=== PATIENT | male | born 1990 | race Caucasian/White ===

== ENCOUNTER 2023-01-05 11:14 | Emergency (ER) | payer OTHER, SELFPAY ==
[2023-01-05] VITALS (7 sets, daily range): BP systolic 128–158; BP diastolic 71–77; PULSE 112–133; RESP 18–22; TEMP 37.4–37.7; O2SAT 92–96; BMI 25.1
--- NOTE | ~2023-01-05 | CT_ITS ---
EXAMINATION: CT ANGIOGRAM OF THE CHEST WITH AND WITHOUT CONTRAST (CT PULMONARY ANGIOGRAM FOR PE) CLINICAL INFORMATION: Reason for Exam: tachycardia shortness of breath RO PE COMPARISON: Chest x-ray 01/05/2023. TECHNIQUE: Prior to contrast administration, noncontrast localization images were obtained. Subsequently, multidetector volumetric imaging was performed from the thoracic inlet to below the diaphragms following the administration of 80 mL Omnipaque 350 intravenous contrast. No contrast reaction reported Sagittal, coronal, and MIP oblique sagittal reformatted images were obtained on the CT workstation, uploaded to PACS, and reviewed. This CT examination was performed using dose optimization techniques as appropriate, variously including the following: *Automated exposure control *Adjustment of mA and/or kV according to patient size (this includes techniques or standardized protocols for targeted exams where dose is matched to indication/reason for exam; i.e. extremities or head) *Use of iterative reconstruction technique Total exam dose-length product 265 mGy-cm FINDINGS: QUALITY OF STUDY/CONTRAST BOLUS: Satisfactory. PULMONARY ARTERIES: No pulmonary emboli. THORACIC AORTA: No aneurysm. LUNG: There is ill-defined ground-glass attenuation seen in the right upper lobe posterior segment image 18/8, 26/8, right middle lobe 31/8, left lower lobe centrally imaged 37/8 and focal atelectatic changes in the anterior segment left upper lobe axial image 24/8. PLEURA: No pleural effusion or pneumothorax. MEDIASTINUM: The thyroid lobes are symmetrical and normal. The central trachea and the bronchi are widely patent. Heart size and the great vessels are normal caliber. There is abnormal left para-aortic and bilateral hilar lymph nodes with largest right hilar lymph node measuring 1.7 cm on axial image 24/7. The largest left para-aortic lymph node measures 2.2 x 1.1 cm on axial image 19/7. There is no pericardial effusion. No evidence of septal bowing or right heart strain. CORONARY ARTERY CALCIFICATION: None visualized on this study. CHEST WALL/AXILLA: No axillary or internal mammary lymphadenopathy. OSSEOUS STRUCTURES: No acute or suspicious osseous abnormality. UPPER ABDOMEN: Visualized liver, spleen, pancreas and bilateral adrenal glands are unremarkable. No reflux of contrast into the hepatic veins to suggest elevated right heart pressures. CT/CT angio chest PE protocol IMPRESSION: 1. No evidence of PE. 2. No evidence of aortic aneurysm or dissection. 3. Scattered ground-glass attenuation changes in both lungs with bilateral abnormal mediastinal adenopathy. Question developing inflammatory or infectious etiology. VTE: Negative
--- NOTE | ~2023-01-05 | XR_ITS ---
EXAMINATION: XR CHEST CLINICAL INFORMATION: Wheezing. Chest pain and back pain. COMPARISON: None available. TECHNIQUE: 2 views of the chest were obtained. FINDINGS: The lungs are well expanded. There is no focal consolidation, edema, or effusion. No pneumothorax. The cardiomediastinal silhouette is within normal limits. No acute osseous abnormality. XR/XR chest 2V IMPRESSION: Clear lungs.
--- NOTE | 2023-01-05 11:33 | ED.URI ---
HPI - URI/Sore Throat General Chief Complaint: Upper Respiratory Symptoms Stated Complaint: diff breathing quest pneumonia Time Seen by Provider: 01/05/23 13:09 History of Present Illness HPI Narrative: Patient complains of shortness of breath, cough, diarrhea, fever over last 2-3 days, he has been using his inhaler at home with only minimal relief and feels chest tightness at this time, he denies any other chest pain, denies any leg injury or leg swelling or calf pain or swelling, he denies fainting or feeling faint no dizziness no confusion no headache no stiff neck no abdominal pain pain no chest pain no nausea vomiting Diarrhea is described as watery episodes with no blood after any time he eats about 3 or 4 times a day, he is tolerating p.o. without vomit Related Data Previous Rx's Medication Instructions Recorded albuterol sulfate 2.5 mg/0.5 mL 5 mg inhalation Q6H PRN shortness 01/05/23 solution for nebulization of breath or wheezing #30 ea albuterol sulfate 90 mcg/actuation 1 inh inhalation QID PRN shortness 01/05/23 aerosol inhaler of breath or wheezing #6.7 grams amoxicillin 875 mg-potassium 1 tab PO BID 7 days #12 tabs 01/05/23 clavulanate 125 mg tablet doxycycline hyclate 100 mg capsule 100 mg PO BID #14 caps 01/05/23 inhalational spacing device #1 ea 01/05/23 (Aerochamber Plus Z Stat spacer) nebulizers #1 ea 01/05/23 prednisone 50 mg tablet 50 mg PO DAILY 5 days #5 tabs 01/05/23 Allergies Allergy/AdvReac Type Severity Reaction Status Date / Time levofloxacin [From Levaquin] Allergy Anaphylaxis Verified 01/05/23 11:35 loratadine [From Claritin] Allergy Anaphylaxis Verified 01/05/23 11:35 [facility] Past Medical History Source: nursing notes reviewed Medical History (Updated 01/06/23 @ 00:01 by Nora Guidry) Asthma Social History Social History Advance Directives: No Physical Exam Vital Signs: Vital Signs: Last Vital Signs Temp 99.9 F 01/05/23 19:25 Pulse 133 H 01/05/23 20:09 Resp 22 H 01/05/23 20:09 BP 153/72 H 01/05/23 19:25 Pulse Ox 93 01/05/23 20:09 O2 Del Method Room Air 01/05/23 20:09 BMI result Body Mass Index 25.1 General appearance is no acute distress no respiratory distress Eyes no redness or discharge The sinuses are nontender Pharynx is clear without redness swelling or exudate The chest had faint scattered wheezing and decreased air entry Chest wall was nontender Heart no murmur Abdomen soft nontender Extremities no calf tenderness or swelling no edema, full range of motion x4 Skin no rash Course Course Course Narrative: This is a rapid medical exam. Deferred additional HPI, ROS, PE to primary provider. 32 yo male with history of asthma, H/o PNA 15 yrs ago with ICU admission here with 4 days of URI symptoms with chest tightness/pain in your upper back, diff breathing. Temp with max 102 F. Received tylenol [employer]. No recent travel/surgery, leg swelling/leg pain, h/o DVT/PE or family history. No smoking history. Went to and received nebulizer/tylenol. Expiratory wheezing right side. Mild tachycarda in triage 112 Saturation okay Patient responded with some improvement in his shortness of breath and his wheezing after nebulizer, he was given another which again brought some increased relief but he continues to feel short of breath any continued to be tachycardic with an oxygen saturation wavering between 92 and 95 EKG was done which showed sinus tachycardia with a rate of [address] depressions in multiple leads including 2 3 AVF V4 V5 V6, troponin was less than 2.7, his description of fever cough shortness of breath typical of asthma and wheezing is not consistent with a heart attack His D-dimer came back elevated at 292 so a CTA was ordered which is pending Chest x-ray was negative for pneumonia, no acute findings, but there is concern for a pneumonia not seen on x-ray No acute findings on CBC no white count, platelets were 182 Chemistry had a glucose of 160 otherwise no other abnormalities, renal function was normal COVID flu and RSV were all negative At 19:00 with CTA results pending and dispo and re-evaluation pending case is signed out to physician assistant martínez Reevaluation(s) Reevaluation #1: Patient was signed out to me, pending chest CTA. CTA revealing scattered ground-glass attenuation changes in both lungs with bilateral abnormal mediastinal adenopathy. Question developing inflammatory or infectious etiology. I had ordered a complete viral panel however this will not be resulted until the morning. Given past history of pneumonia which required hospital admission, it is appropriate to start on antibiotics at this time.. Educated the patient on continuing to drink plenty of fluids get plenty of rest. Given return precautions with any new or worsening symptoms. Patient understands agrees with this plan. Lungs clear to auscultation bilaterally. Oxygen saturation 96% air walking O2 sat 93-94%. Patient continues to be tachycardic in the 120s 130s however reports that he is feeling very anxious about being in hospital. He has no chest pain. Patient stable for discharge Time: 21:49 Medications Administered Discontinued Medications Generic Name Dose Route Start Last Admin Trade Name Freq PRN Reason Stop Dose Admin Albuterol/Ipratropium 3 ml 01/05/23 13:29 01/05/23 13:40 Albuterol/Iprat 2.5/0.5mg 3 Ml Ampul.Neb INHALE 01/05/23 13:30 3 ml ONCE ONE Administration Albuterol/Ipratropium 3 ml 01/05/23 14:59 01/05/23 15:36 Albuterol/Iprat 2.5/0.5mg 3 Ml Ampul.Neb INHALE 01/05/23 15:00 3 ml ONCE ONE Administration Amoxicillin/Clavulanate Potassium 875 mg 01/05/23 22:24 01/05/23 22:34 Amoxicillin/Potassium Clav 875 Mg Tablet PO 01/05/23 22:25 875 mg ONCE ONE Administration Doxycycline Monohydrate 100 mg 01/05/23 22:24 01/05/23 22:34 Doxycycline Monohydrate 100 Mg Capsule PO 01/05/23 22:25 100 mg ONCE ONE Administration Sodium Chloride 1,000 mls @ 999 mls/hr 01/05/23 16:30 01/05/23 19:12 Ns IVCONT 01/05/23 17:30 Infused .Q1H1M TESSA Infusion Iohexol 100 ml 01/05/23 18:27 01/05/23 18:28 Iohexol 350 Mg/Ml 100 Ml Infus..Btl IV 01/05/23 18:28 65 ml ONCE ONE Administration Lorazepam 1 mg 01/05/23 16:22 01/05/23 16:38 Lorazepam 2 Mg/Ml Vial IVPUSH 01/05/23 16:23 1 mg ONCE ONE Administration Lorazepam 1 mg 01/05/23 19:05 01/05/23 19:12 Lorazepam 1 Mg Tablet PO 01/05/23 19:06 1 mg ONCE ONE Administration Prednisone 60 mg 01/05/23 13:29 01/05/23 13:35 Prednisone 20 Mg Tablet PO 01/05/23 13:30 60 mg ONCE ONE Administration Medical Decision Making Lab Data 01/05/23 16:08 01/05/23 16:08 Labs: Lab Results 01/05/23 01/05/23 01/05/23 Range/Units 11:44 16:08 16:08 WBC (4.8-10.8) X10*3/uL RBC (4.60-5.80) X10*6/uL Hgb (14.0-18.0) g/dl Hct (42.0-52.0) % MCV (80.0-98.0) fL MCH (27.0-33.0) pg MCHC (31.0-36.0) g/dl RDW (11.0-16.0) % Plt Count (160-400) X10*3/uL MPV (9.4-12.4) fL Immature Gran % (Auto) (0.0-0.4) % Neut % (Auto) (45-73) % Lymph % (Auto) (20-40) % Lane % (Auto) (2-11) % Eos % (Auto) (0-4) % Baso % (Auto) (0-2) % Lymph # (Auto) (1.2-4.9) X10*3/uL Lane # (Auto) (0.1-1.2) X10*3/uL Eos # (Auto) (0.0-0.4) X10*3/uL Baso # (Auto) (0.0-0.2) X10*3/uL Abs Immat Gran (auto) (0.00-0.03) X10*3/uL Absolute Neuts (auto) (2.0-8.3) x10*3/uL Absolute Nucleated RBC (0.0-0.012) X10*3/uL Nucleated RBC % (auto) (0.0-0.2) /100WBC D-Dimer High Sensitivty 292 NG/ML Sodium (135-145) mmol/L Potassium (3.3-5.1) mmol/L Chloride (96-108) mmol/L Carbon Dioxide (22-29) mmol/L Anion Gap (12-20) BUN (9-16) mg/dL Creatinine (0.5-1.4) mg/dL Estim Creat Clear Calc Estimated GFR Random Glucose (60-115) mg/dL Calcium (8.4-10.2) mg/dL Troponin I High Sens < 2.7 (<3.5-35.0) ng/L Respiratory Panel Luis Adenovirus (Rapid PCR) (Not Detect.) B.pert (TEM-PCR) (Not Detect.) B.parapertussis DNA PCR (Not Detect.) C. pneumoniae DNA (PCR) (Not Detect.) Coronavirus OC43 (PCR) (Not Detect.) Coronavirus HKU1 (PCR) (Not Detect.) Coronavirus 229E (PCR) (Not Detect.) Coronavirus NL63 (PCR) (Not Detect.) Human Metapneumovir PCR (Not Detect.) Influenza A (RT-PCR) (Not Detect.) Influenza Type A (PCR) NEGATIVE (Negative) Influenza B (RT-PCR) (Not Detect.) Influenza Type B (PCR) NEGATIVE (Negative) M. pneumoniae (PCR) (Not Detect.) Parainfluenza 1 (PCR) (Not Detect.) Parainfluenza 2 (PCR) (Not Detect.) Parainfluenza 3 (PCR) (Not Detect.) Parainfluenza 4 (PCR) (Not Detect.) RSV (PCR) (Not Detect.) RSV RNA Qual (PCR) NEGATIVE (Negative) Entero/Rhino (PCR) (Not Detect.) SARS-CoV-2 RNA (RT-PCR) NEGATIVE (Negative) 01/05/23 01/05/23 01/05/23 Range/Units 16:08 16:08 20:09 WBC 8.7 (4.8-10.8) X10*3/uL RBC 5.31 (4.60-5.80) X10*6/uL Hgb 15.2 (14.0-18.0) g/dl Hct 44.3 (42.0-52.0) % MCV 83.4 (80.0-98.0) fL MCH 28.6 (27.0-33.0) pg MCHC 34.3 (31.0-36.0) g/dl RDW 12.3 (11.0-16.0) % Plt Count 182 (160-400) X10*3/uL MPV 8.6 L (9.4-12.4) fL Immature Gran % (Auto) 0.3 (0.0-0.4) % Neut % (Auto) 81.6 H (45-73) % Lymph % (Auto) 15.6 L (20-40) % Lane % (Auto) 2.2 (2-11) % Eos % (Auto) 0.1 (0-4) % Baso % (Auto) 0.2 (0-2) % Lymph # (Auto) 1.4 (1.2-4.9) X10*3/uL Lane # (Auto) 0.2 (0.1-1.2) X10*3/uL Eos # (Auto) 0.0 (0.0-0.4) X10*3/uL Baso # (Auto) 0.0 (0.0-0.2) X10*3/uL Abs Immat Gran (auto) 0.03 (0.00-0.03) X10*3/uL Absolute Neuts (auto) 7.1 (2.0-8.3) x10*3/uL Absolute Nucleated RBC 0.000 (0.0-0.012) X10*3/uL Nucleated RBC % (auto) 0.0 (0.0-0.2) /100WBC D-Dimer High Sensitivty NG/ML Sodium 138 (135-145) mmol/L Potassium 3.5 (3.3-5.1) mmol/L Chloride 100 (96-108) mmol/L Carbon Dioxide 25 (22-29) mmol/L Anion Gap 17 (12-20) BUN 9 (9-16) mg/dL Creatinine 1.11 (0.5-1.4) mg/dL Estim Creat Clear Calc 102.9 Estimated GFR > 60 Random Glucose 160 H (60-115) mg/dL Calcium 9.9 (8.4-10.2) mg/dL Troponin I High Sens (<3.5-35.0) ng/L Respiratory Panel Luis See Note Adenovirus (Rapid PCR) Not Detected (Not Detect.) B.pert (TEM-PCR) Not Detected (Not Detect.) B.parapertussis DNA PCR Not Detected (Not Detect.) C. pneumoniae DNA (PCR) Not Detected (Not Detect.) Coronavirus OC43 (PCR) Not Detected (Not Detect.) Coronavirus HKU1 (PCR) Not Detected (Not Detect.) Coronavirus 229E (PCR) Not Detected (Not Detect.) Coronavirus NL63 (PCR) Not Detected (Not Detect.) Human Metapneumovir PCR Not Detected (Not Detect.) Influenza A (RT-PCR) Not Detected (Not Detect.) Influenza Type A (PCR) (Negative) Influenza B (RT-PCR) Not Detected (Not Detect.) Influenza Type B (PCR) (Negative) M. pneumoniae (PCR) Not Detected (Not Detect.) Parainfluenza 1 (PCR) Not Detected (Not Detect.) Parainfluenza 2 (PCR) Not Detected (Not Detect.) Parainfluenza 3 (PCR) Detected A (Not Detect.) Parainfluenza 4 (PCR) Not Detected (Not Detect.) RSV (PCR) Not Detected (Not Detect.) RSV RNA Qual (PCR) (Negative) Entero/Rhino (PCR) Not Detected (Not Detect.) SARS-CoV-2 RNA (RT-PCR) Not Detected (Negative) Discharge Plan Discharge Clinical Impression: Asthma, Upper respiratory infection Patient Disposition: Home, Self-Care Instructions: Asthma (DC) Additional Instructions: Your chest CT showed no evidence of a blood clot. There were some questionable inflammatory or infectious etiology without any definitive pneumonia seen. I am treating you with 2 types of antibiotics as well as steroids. You received your 1st dose of steroids and antibiotics in the emergency department today. Start the rest of your prescribed medications tomorrow. Drink plenty of fluids get plenty of rest. Doxycycline can make you very sensitive to the sun, please where appropriate sun block. Use albuterol inhaler as needed, as well as albuterol nebulizer. If any new or worsening symptoms occur please return for re-evaluation. Prescriptions: New amoxicillin-pot clavulanate 875-125 mg tablet 1 tab PO BID 7 Days Qty: 12 0RF Rx Instructions: Patient already received 1st dose on 01/05/2023. doxycycline hyclate 100 mg capsule 100 mg PO BID Qty: 14 0RF albuterol sulfate 90 mcg/actuation HFA aerosol inhaler 1 inh inhalation QID PRN (Reason: shortness of breath or wheezing) Qty: 6.7 0RF prednisone 50 mg tablet 50 mg PO DAILY 5 Days Qty: 5 0RF albuterol sulfate 2.5 mg/0.5 mL solution for nebulization 5 mg inhalation Q6H PRN (Reason: shortness of breath or wheezing) Qty: 30 0RF (DME) Aerochamber Plus Z Stat Spacer See Rx Instructions .Route Qty: 1 0RF Rx Instructions: As directed (DME) nebulizers Misc See Rx Instructions .Route Qty: 1 0RF Rx Instructions: As directed Stand Alone Forms: Work/School Release Interventions: ED Discharge Assessment Last Done: 01/05/23 22:40 Discharge Date/Time: 01/05/23 23:03
[2023-01-05 12:37] LABS: Influenza A PCR NEGATIVE (Negative); Influenza B PCR NEGATIVE (Negative); Resp Syncy Virus RNA Qual PCR NEGATIVE (Negative); SARS COV2 PCR INHOUSE NEGATIVE (Negative)
[2023-01-05] MEDS: predniSONE 20 MG TABLET 60 MG PO (13:35)
[2023-01-05] MEDS: Albuterol/Iprat 2.5/0.5MG 3 ML AMPUL.NEB INHALE ×2 (13:40→15:36)
--- NOTE | 2023-01-05 16:01 | ECG_ITS ---
Test Reason : tachy Blood Pressure : / mmHG Vent. Rate : 133 BPM Atrial Rate : 133 BPM P-R Int : 122 ms QRS Dur : 076 ms QT Int : 284 ms P-R-T Axes : 068 072 -30 degrees QTc Int : [address] & T wave abnormality, consider inferolateral ischemia Abnormal ECG No previous ECGs available Referred By: Gavin Farmer Electronically Signed By:ARPAN HORTON MD
[2023-01-05 16:14] LABS: MANUAL DIFF FLAG NO
[2023-01-05 16:16] LABS: Basophils Percent Auto 0.2 % (0-2); Eosinophils Percent Auto 0.1 % (0-4); Hematocrit 44.3 % (42.0-52.0); Hemoglobin 15.2 g/dl (14.0-18.0); Imm Gran Abs Auto 0.03 X10*3/uL (0.00-0.03); Imm Gran Pct Auto 0.3 % (0.0-0.4); Lymphocytes Absolute Auto 1.4 X10*3/uL (1.2-4.9); Lymphocytes Percent Auto 15.6 % (20-40); Mean Corpuscular HGB Conc 34.3 g/dl (31.0-36.0); Mean Corpuscular Hemoglobin 28.6 pg (27.0-33.0); Mean Corpuscular Volume 83.4 fL (80.0-98.0); Mean Platelet Volume 8.6 fL (9.4-12.4); Monocytes Absolute Auto 0.2 X10*3/uL (0.1-1.2); Monocytes Percent Auto 2.2 % (2-11); Neutrophils Absolute Auto 7.1 x10*3/uL (2.0-8.3); Neutrophils Percent Auto 81.6 % (45-73); Platelet Count 182 X10*3/uL (160-400); Red Blood Count 5.31 X10*6/uL (4.60-5.80); Red Cell Distribution Width 12.3 % (11.0-16.0); White Blood Count 8.7 X10*3/uL (4.8-10.8)
[2023-01-05 16:23] LABS: D Dimer High Sensitivity 292 NG/ML
[2023-01-05 16:32] LABS: Anion Gap 17 (12-20); Blood Urea Nitrogen 9 mg/dL (9-16); Calcium 9.9 mg/dL (8.4-10.2); Carbon Dioxide 25 mmol/L (22-29); Chloride 100 mmol/L (96-108); Creatinine Clr Calc Pharmacy 102.9; Estimated Glomerular Filt Rate > 60; Glucose Random 160 mg/dL (60-115); Potassium 3.5 mmol/L (3.3-5.1); Sodium 138 mmol/L (135-145)
[2023-01-05] MEDS: LORazepam 2 MG/ML VIAL 1 MG IVPUSH (16:38)
[2023-01-05] MEDS: 0.9 % Sodium Chloride 1,000 ML 999 ML IVCONT (16:39)
[2023-01-05 16:41] LABS: Troponin-I High Sensitivity < 2.7 ng/L (<3.5-35.0)
[2023-01-05] MEDS: iohexoL 350 MG/ML 100 ML INFUS..BTL IV (18:28)
[2023-01-05] MEDS: LORazepam 1 MG TABLET PO (19:12)
--- NOTE | 2023-01-05 20:06 | PC.NURSE ---
ambulated patient around the main ED oxygen dropped to 93.% heart rate was at 133. Desiree GLEZ notified.
[2023-01-05] MEDS: Doxycycline Monohydrate 100 MG CAPSULE PO (22:34)
[2023-01-05] MEDS: Amoxicillin/Potassium Clav 875 MG TABLET PO (22:34)
[2023-01-06 12:09] LABS: Adenovirus PCR Not Detected (Not Detect.); Bordetella parapertussis PCR Not Detected (Not Detect.); Bordetella pertussis PCR Not Detected (Not Detect.); Chlamydia pneumoniae PCR Not Detected (Not Detect.); Coronavirus 229E PCR Not Detected (Not Detect.); Coronavirus HKU1 PCR Not Detected (Not Detect.); Coronavirus NL63 PCR Not Detected (Not Detect.); Coronavirus OC43 PCR Not Detected (Not Detect.); Human metapneumovirus PCR Not Detected (Not Detect.); Influenza A PCR Not Detected (Not Detect.); Influenza B PCR Not Detected (Not Detect.); Mycoplasma pneumoniae PCR Not Detected (Not Detect.); Parainfluenza 1 PCR Not Detected (Not Detect.); Parainfluenza 2 PCR Not Detected (Not Detect.); Parainfluenza 3 PCR Detected (Not Detect.); Parainfluenza 4 PCR Not Detected (Not Detect.); RSV PCR Not Detected (Not Detect.); Rhino/Enterovirus PCR Not Detected (Not Detect.); SARS-CoV-2 PCR Not Detected (Not Detect.)
== END 2023-01-05 23:03 | disposition home or self-care (01) ==
PROVIDERS: Nurse Practitioner Family; Physician Assistant Medical; Emergency Provider Emergency Medicine; PCP Physician Assistant Medical
DX: J45.909 Unspecified asthma, uncomplicated (principal); R06.02 Shortness of breath; J06.9 Acute upper respiratory infection, unspecified; M54.50 Low back pain, unspecified; R07.89 Other chest pain; R00.0 Tachycardia, unspecified; Z20.822 Contact with and (suspected) exposure to COVID-19; Z20.828 Contact with and (suspected) exposure to other viral communicable diseases; Z79.899 Other long term (current) drug therapy
CPT/HCPCS: 0241U; 36415; 71046; 71275; 80048; 84484; 85025; 85379; 87633; 93005; 94640; 96361; 96374; 99285; J2060; Q9967

== ENCOUNTER 2023-08-31 14:55 | Emergency (ER) | payer OTHER, SELFPAY ==
--- NOTE | ~2023-08-31 | XR_ITS ---
EXAMINATION: XR CHEST CLINICAL INFORMATION: Chest pain COMPARISON: None available. TECHNIQUE: Frontal view of the chest was obtained. FINDINGS: No significant abnormality is noted involving the heart, lungs, mediastinum, bony thorax or soft tissues. XR/XR chest 1V IMPRESSION: Unremarkable chest examination.
--- NOTE | 2023-08-31 14:57 | ECG_ITS ---
Test Reason : CHEST PAIN Blood Pressure : / mmHG Vent. Rate : 064 BPM Atrial Rate : 064 BPM P-R Int : 132 ms QRS Dur : 086 ms QT Int : 382 ms P-R-T Axes : 052 058 000 degrees QTc Int : 394 ms Normal sinus rhythm Nonspecific T wave abnormality Abnormal ECG When compared with ECG of 05-JAN-2023 15:59, Vent. rate has decreased BY 69 BPM Nonspecific T wave abnormality has replaced inverted T waves in Lateral leads Referred By: Claudine Huffman Electronically Signed By:YANNI HAYDEN
[2023-08-31 15:35] VITALS: BP 127/88; PULSE 67; RESP 18; TEMP 36.8; O2SAT 97; BMI 25.1
[2023-08-31 15:35] LABS: MANUAL DIFF FLAG NO
--- NOTE | 2023-08-31 15:36 | ED.CHESTPAIN ---
HPI - Chest Pain General Chief Complaint: Chest Pain Stated Complaint: elevate bp,chest pain,anxiety Time Seen by Provider: 08/31/23 17:10 Source: patient Mode of arrival: ambulatory Limitations: no limitations History of Present Illness HPI narrative: This is a 33-year-old male history of anxiety and asthma. presenting to the emergency department for evaluation of palpitations, chest discomfort, anxiety w/ fear of dying it has been intermittent in nature for the past 2 years, had an episode today of anxiety. He states now he is feeling better. When he has these episodes of anxiety feels tingling in his face, palpitations and chest discomfort. Patient took Ativan for this which seemed to help. At this time not having chest pain. Denies chest pain, shortness of breath, nausea, vomiting, abdominal pain, headache, vision changes, dizziness, weakness, fatigue and malaise. No significant cardiac history. No SI/HI. Related Data Previous Rx's Medication Instructions Recorded albuterol sulfate 2.5 mg/0.5 mL 5 mg inhalation Q6H PRN shortness 01/05/23 solution for nebulization of breath or wheezing #30 ea albuterol sulfate 90 mcg/actuation 1 inh inhalation QID PRN shortness 01/05/23 aerosol inhaler of breath or wheezing #6.7 grams amoxicillin 875 mg-potassium 1 tab PO BID 7 days #12 tabs 01/05/23 clavulanate 125 mg tablet doxycycline hyclate 100 mg capsule 100 mg PO BID #14 caps 01/05/23 inhalational spacing device #1 ea 01/05/23 (Aerochamber Plus Z Stat spacer) nebulizers #1 ea 01/05/23 prednisone 50 mg tablet 50 mg PO DAILY 5 days #5 tabs 01/05/23 Allergies Allergy/AdvReac Type Severity Reaction Status Date / Time cefaclor [From Ceclor] Allergy Rash Verified 08/31/23 15:35 levofloxacin [From Levaquin] Allergy Anaphylaxis Verified 08/31/23 15:35 loratadine [From Claritin] Allergy Anaphylaxis Verified 08/31/23 15:35 Review of Systems Review of Systems: Yes all other systems are reviewed and are negative PMFSH Past Medical History Attestation statement: The following information was validated with the patient. Source: old records reviewed and nursing notes reviewed Medical History (Updated 02/08/24 @ 17:29 by NEWTON Obrien) Asthma Social History Social History Advance Directives: No Advance Directives Information Provided: No Physical Exam Vital Signs: Vital Signs: Last Vital Signs Temp 98.2 F 08/31/23 15:35 Pulse 67 08/31/23 15:35 Resp 18 08/31/23 15:35 BP 127/88 08/31/23 15:35 Pulse Ox 97 08/31/23 15:35 O2 Del Method Room Air 08/31/23 15:35 BMI result Body Mass Index 25.1 vss Appearance: Alert.? Oriented X3.? No acute distress.? Head: Normocephalic, atraumatic, no step-offs or deformities Eyes: Pupils equal, round and reactive to light.? ENT: Pharynx normal.? Neck: Normal inspection.? Neck supple.? CVS: Normal heart rate and rhythm.? Pulses normal.? Respiratory: No respiratory distress.? Breath sounds normal.? Abdomen: Soft and nontender.? Skin: Skin warm and dry.? Normal skin color.? Normal skin turgor.? Extremities: No lower extremity edema.? No calf ttp. 5/5 strength to bilateral upper and lower extremities Neuro: Oriented X 3.? No motor deficit.? No sensory deficit. CN 2-12 intact Course Course Course Narrative: RME: History of anxiety. BP high at home around 139 systolic. Initially had chest pain and took Lorazepam as he believed it was anxiety. States that he was able to fall asleep after the med but remains feeling anxious. Chest pain is 1/10 in triage. BP in triage 127/88. Reevaluation(s) Reevaluation #1: CBC unremarkable. Chemistry no acute findings requiring intervention. Troponin negative, EKG nonischemic. Patient is PERC negative unlikely PE. This is likely anxiety. Patient tells me that he really feels like he is anxious he has this overwhelming fear of dying. Tells me he is afraid that if he dies his son will not have anybody to take care of him other than his who is constantly working. He is requesting to speak to crisis. At this time patient to be placed into observation. At time observation was started no acute distress will continue to monitor. Time: 17:11 Reevaluation #2: Patient is able to leave if he wants to. He is pending care team voluntarily for resources. No indication for Section 12. No signs of acute psychosis. No SI or HI. Time: 17:50 Medical Decision Making Medical Decision Making [facility] Narrative: 33-year-old male presents with complaints chest discomfort, palpitations and anxiety ongoing for the past 2 years. Physical exam benign History and physical exam concerning for anxiety versus panic vs ocd vs palpitations versus PVCs versus arrhythmia. Unlikely ACS, PE, dissection, pneumonia, acute respiratory distress. Will rule out metabolic derangement Plan labs, imaging, EKG Differential Diagnosis Differential Diagnoses: The differential diagnosis associated with the presentation includes History and physical exam concerning for anxiety versus panic vs ocd vs palpitations versus PVCs versus arrhythmia. Unlikely ACS, PE, dissection, pneumonia, acute respiratory distress. Will rule out metabolic derangement Admission/Observation Consideration of admission/observation: Escalation of care including admission/observation considered Unlikely Lab Data [facility] Lab Attestation statement: I reviewed the patient's lab results. 08/31/23 15:30 08/31/23 15:30 Labs: Lab Results 08/31/23 Range/Units 15:30 WBC 9.1 (4.8-10.8) X10*3/uL RBC 5.33 (4.60-5.80) X10*6/uL Hgb 15.4 (14.0-18.0) g/dl Hct 43.7 (42.0-52.0) % MCV 82.0 (80.0-98.0) fL MCH 28.9 (27.0-33.0) pg MCHC 35.2 (31.0-36.0) g/dl RDW 11.9 (11.0-16.0) % Plt Count 237 D (160-400) X10*3/uL MPV 8.6 L (9.4-12.4) fL Immature Gran % (Auto) 0.3 (0.0-0.4) % Neut % (Auto) 63.3 (45-73) % Lymph % (Auto) 28.0 (20-40) % Leslie % (Auto) 5.4 (2-11) % Eos % (Auto) 2.6 (0-4) % Baso % (Auto) 0.4 (0-2) % Lymph # (Auto) 2.5 (1.2-4.9) X10*3/uL Leslie # (Auto) 0.5 (0.1-1.2) X10*3/uL Eos # (Auto) 0.2 (0.0-0.4) X10*3/uL Baso # (Auto) 0.0 (0.0-0.2) X10*3/uL Abs Immat Gran (auto) 0.03 (0.00-0.03) X10*3/uL Absolute Neuts (auto) 5.7 (2.0-8.3) x10*3/uL Absolute Nucleated RBC 0.000 (0.0-0.012) X10*3/uL Nucleated RBC % (auto) 0.0 (0.0-0.2) /100WBC Sodium 140 (135-145) mmol/L Potassium 3.6 (3.3-5.1) mmol/L Chloride 104 (96-108) mmol/L Carbon Dioxide 28 (22-29) mmol/L Anion Gap 12 (12-20) BUN 14 (9-16) mg/dL Creatinine 0.93 (0.5-1.4) mg/dL Estim Creat Clear Calc 121.6 Estimated GFR > 60 Random Glucose 105 (60-115) mg/dL Calcium 8.8 D (8.4-10.2) mg/dL Total Bilirubin 0.5 (0.0-1.0) mg/dL AST 13 (5-37) U/L ALT 17 (0-40) U/L Alkaline Phosphatase 64 (39-117) U/L Troponin I High Sens < 2.7 (<3.5-35.0) ng/L Total Protein 7.2 (6.5-8.0) g/dL Albumin 4.1 (3.5-5.0) g/dL Independent Interpretation I performed an independent interpretation of an: EKG (Ventricular rate 64, SD normal, QRS normal, QT/QTC normal. No ST elevations or inversions concerning for ischemia) and Plain X-Ray (Unremarkable) Radiology Impression Discussion of test interpretation with radiology: I have reviewed the radiologist's reading. External Record Review External record reviewed: Inpatient record, Office record, Outpatient record, Prior outpatient labs, Prior outpatient radiology, Primary care record and Outside ED record Critical Care Time Critical Care Time Critical Care Time: No Discharge Plan Discharge Clinical Impression: Anxiety, Chest pain Patient Disposition: Home, Self-Care Instructions: Chest Pain (DC), Anxiety (ED) Additional Instructions: Take your medications as prescribed. If you were prescribed antibiotics today, it is important that you take your medication to their entirety, do not skip any doses, do not finish them early. Follow-up with your primary care provider this week. Return to the emergency department with new or worsening symptoms. Such as fevers, chills, chest pain, shortness of breath, nausea, vomiting, dizziness, headache, vision changes, lethargy In case of emergency call 911 Check your blood pressure Monday, Monday, Monday right eye done in follow-up with your PCP and/or Cardiology. XR/XR chest 1V IMPRESSION: Unremarkable chest examination. Prescriptions: No Action amoxicillin-pot clavulanate 875-125 mg tablet 1 tab PO BID 7 Days Qty: 12 0RF Rx Instructions: Patient already received 1st dose on 01/05/2023. doxycycline hyclate 100 mg capsule 100 mg PO BID Qty: 14 0RF albuterol sulfate 90 mcg/actuation HFA aerosol inhaler 1 inh inhalation QID PRN (Reason: shortness of breath or wheezing) Qty: 6.7 0RF prednisone 50 mg tablet 50 mg PO DAILY 5 Days Qty: 5 0RF albuterol sulfate 2.5 mg/0.5 mL solution for nebulization 5 mg inhalation Q6H PRN (Reason: shortness of breath or wheezing) Qty: 30 0RF (DME) Aerochamber Plus Z Stat Spacer See Rx Instructions .Route Qty: 1 0RF Rx Instructions: As directed (DME) nebulizers [facility] [place] [facility] See Rx Instructions .Route Qty: 1 0RF Rx Instructions: As directed Referrals: [facility] [Provider Group] - 2 days Song Zhang PA [Primary Care Provider] - 2 days Stand Alone Forms: Work/School Release
[2023-08-31 15:37] LABS: Basophils Percent Auto 0.4 % (0-2); Eosinophils Absolute Auto 0.2 X10*3/uL (0.0-0.4); Eosinophils Percent Auto 2.6 % (0-4); Hematocrit 43.7 % (42.0-52.0); Hemoglobin 15.4 g/dl (14.0-18.0); Imm Gran Abs Auto 0.03 X10*3/uL (0.00-0.03); Imm Gran Pct Auto 0.3 % (0.0-0.4); Lymphocytes Absolute Auto 2.5 X10*3/uL (1.2-4.9); Mean Corpuscular HGB Conc 35.2 g/dl (31.0-36.0); Mean Corpuscular Hemoglobin 28.9 pg (27.0-33.0); Mean Platelet Volume 8.6 fL (9.4-12.4); Monocytes Absolute Auto 0.5 X10*3/uL (0.1-1.2); Monocytes Percent Auto 5.4 % (2-11); Neutrophils Absolute Auto 5.7 x10*3/uL (2.0-8.3); Neutrophils Percent Auto 63.3 % (45-73); Platelet Count 237 X10*3/uL (160-400); Red Blood Count 5.33 X10*6/uL (4.60-5.80); Red Cell Distribution Width 11.9 % (11.0-16.0); White Blood Count 9.1 X10*3/uL (4.8-10.8)
[2023-08-31 15:52] LABS: Alanine Aminotransferase 17 U/L (0-40); Albumin Level 4.1 g/dL (3.5-5.0); Alkaline Phosphatase 64 U/L (39-117); Anion Gap 12 (12-20); Aspartate Amino Transferase 13 U/L (5-37); Bilirubin Total 0.5 mg/dL (0.0-1.0); Blood Urea Nitrogen 14 mg/dL (9-16); Calcium 8.8 mg/dL (8.4-10.2); Carbon Dioxide 28 mmol/L (22-29); Chloride 104 mmol/L (96-108); Creatinine Clr Calc Pharmacy 121.6; Estimated Glomerular Filt Rate > 60; Glucose Random 105 mg/dL (60-115); Potassium 3.6 mmol/L (3.3-5.1); Sodium 140 mmol/L (135-145); Total Protein 7.2 g/dL (6.5-8.0)
[2023-08-31 16:00] LABS: Troponin-I High Sensitivity < 2.7 ng/L (<3.5-35.0)
[2023-08-31 19:11] VITALS: BP 121/90; PULSE 96; RESP 16; TEMP 36.7; O2SAT 97
== END 2023-08-31 19:15 | disposition home or self-care (01) ==
PROVIDERS: Nurse Practitioner Family; Emergency Provider Emergency Medicine; PCP Physician Assistant Medical
DX: R07.89 Other chest pain (principal); F41.9 Anxiety disorder, unspecified; Z79.899 Other long term (current) drug therapy
CPT/HCPCS: 36415; 71045; 80053; 84484; 85025; 93005; 99283; 99285

== ENCOUNTER → 2023-08-31 14:57 | Outpatient (BNV) | payer OTHER, SELFPAY | PROVIDERS: Emergency Provider Emergency Medicine; PCP Physician Assistant Medical; Visit Provider Internal Medicine | DX: R07.9 Chest pain, unspecified (principal); R94.31 Abnormal electrocardiogram [ECG] [EKG] | CPT/HCPCS: 93010 ==

== ENCOUNTER 2023-09-12 14:01 | Outpatient (AMB) | payer OTHER, SELFPAY ==
[2023-09-12 14:22] VITALS: BP 100/60; PULSE 66; BMI 25.5
--- NOTE | 2023-09-12 14:22 | A.OFFVIS_ITS ---
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 This has been going on for about 6 weeks. He reports it happens mostly as he wakes up or as he is going to sleep. He feels arm pain, chest discomfort, his heart race, arm pain, and tingling in his face. He denies shortness of breath or palpitations. He reports he has had higher stress at home and quit using marijuana in all forms about 6 weeks ago. He quit due to having panic attacks after using. He was also using Zyn nicotine pouches until recently. He reports no cardiac issues or significant medical history. Just asthma and recently anxiety. [facility] Medical History (Updated 09/13/23 @ 09:44 by Niya Pruett NP) Tachycardia Asthma Family History Mother TIA (transient ischemic attack) PFO (patent foramen ovale) Atrial septal aneurysm Social History Alcohol intake: current Alcohol intake frequency: holidays/special occasions only Patient Tobacco Use Status: Former Tobacco user Quit Date: 2015 Tobacco use type: Smokeless Tobacco Substance Use Type: Marijuana Review of Systems Const Denies chills, Denies fatigue, Denies fever(s), Denies frequent falls, Denies weakness, Denies weight gain and Denies weight loss ENT Denies dizziness Card Denies chest pain, Denies leg edema, Denies lightheadedness, Denies palpitations, Denies dyspnea, Denies dyspnea on exertion and Denies orthopnea Resp Denies cough, Denies dyspnea and Denies dyspnea on exertion GI Denies bloating and Denies change in bowel habits Musc Denies muscle weakness, Denies numbness and Denies tingling Neuro Denies dizziness, Denies frequent falls, Denies numbness, Denies tingling and Denies weakness Endo Denies fatigue and Denies palpitations Physical Exam Vital Signs: Last Vital Signs Pulse 66 09/12/23 14:22 BP 100/60 09/12/23 14:22 BMI result Body Mass Index 25.5 Const General: healthy appearing and no acute distress Orientation/consciousness: patient oriented x3 HEENT Head: Yes normal to inspection Eyes General: appearance normal, both eyes and all related structures Neck Neck: Yes normal visual inspection Chest Chest palpation & inspection: normal inspection of the chest Resp Effort & Inspection: normal respiratory effort Auscultation: clear to auscultation bilaterally Cardio Jugular venous distension: no JVD Palpation: normal PMI Rate: regular rate Rhythm: regular rhythm Heart sounds: S1 normal heart sound present, S2 normal heart sound present, no click, no gallops, no murmurs and no rubs GI Inspection: Yes normal to inspection Palpation (GI): Soft to palpation Skin General skin exam: no rashes or lesions noted Neuro General: patient oriented x3 Extrem General: Yes normal to inspection Psych Appearance: grossly normal Assessment & Plan Assessment & Plan (1) Chest pain: Code(s): R07.9 - Chest pain, unspecified (2) Tachycardia: Code(s): R00.0 - Tachycardia, unspecified Plan Will get holter monitor to assess for arrhythmias, Avoid caffeine, stress, and encourage good sleep hygiene. Stress test to evaluate for ischemia and echo for structural abnromalities. ED care if needed. Likely related to high stress and quitting nicotine and marijuana cold but will evaluate further for cardiac pathology. Orders: Orders CA echo transthoracic complete 09/12/23 CA stress test 09/12/23 R07.9 - Chest pain, unspecified ECG 3 day holter monitor Today R00.0 - Tachycardia, unspecified Coding Level of Care Code New Pt Level 3 (61104) Diagnoses Chest pain R07.9 Tachycardia R00.0
== END 2023-09-12 15:22 | disposition home or self-care (01) ==
PROVIDERS: PCP Physician Assistant Medical; Visit Provider Nurse Practitioner
DX: R07.9 Chest pain, unspecified (principal); R00.0 Tachycardia, unspecified
CPT/HCPCS: 99203

== ENCOUNTER → 2023-09-12 14:01 | Outpatient (BNVA) | payer OTHER, SELFPAY | PROVIDERS: PCP Physician Assistant Medical; Visit Provider Nurse Practitioner ==

== ENCOUNTER → 2023-10-05 07:53 | Outpatient (REF) | payer OTHER, SELFPAY ==
--- NOTE | 2023-10-05 07:57 | HM_ITS ---
Conclusion: 1. Patient was monitored for total period of 3 days and 2 hours 2. Baseline was normal sinus rhythm with average heart of 76 beats per minute 3. No significant arrhythmias or pauses noted 4. Patient reported 1 event without associated symptoms correlating with sinus arrhythmia MTDD
--- NOTE | 2023-10-05 07:57 | CA_ITS ---
Acquisition Time: 2023-10-05 08:52:42 Total Exercise Time: 00:11:30 Test Indications: CP Medications: SEE H Protocol: NAPOLEON Max HR: 166 BPM 89% of Pred: 185 BPM Max BP: 155/070 mmHG Max Work Load: 13.3 METS Exercise stress test exercise 11 min 30 sec of Napoleon protocol achieving 89% MPHR, with mild SOB, no chest discomfort, without arrhythmais, with normotensive response to exercise, with T wave inversions leads 2, 3, aVF, V3-V6 once exercise started. Test reviewedf with Dr. Burt Referred By: Niya Pruett Overread By: Niya Pruett
--- NOTE | 2023-10-05 07:57 | CA_ITS ---
Transthoracic Echocardiogram Patient (Last, First, Middle): Michael Bo, Gender: Male Date of : 1990 Age: 33 Procedure Date: 10/05/2023 Procedure Type: Transthoracic Echocardiogram Location: OP Height: 182.88 cm Weight: 83.46 kg BSA: 2.06 m2 Heart Rate: bpm BP: 124 / 88 mmHg Clerical Adjuster: NIKOS Referring MD: Niya Pruett NP Cloth Worker: Tae Burt MD Symptoms: CHEST PAIN Study Quality: Adequate ECG Rhythm: Sinus Conclusions: - Normal study Findings Left Ventricle Normal left ventricular size, thickness, and systolic function. The visually estimated ejection fraction is between 60-65%. Spectral Doppler is indicative of a normal filling pattern. Peak GLS is -18.6%, within normal limits. Right Ventricle Normal right ventricular cavity size and systolic function. Atria Both atria are normal in size. There is no evidence of interatrial shunt. Aortic Valve Normal aortic valve structure and function. There is no aortic valve stenosis. There is no aortic valve regurgitation. Mitral Valve Normal mitral valve structure and function. There is trace mitral valve regurgitation. There is no mitral valve stenosis. Pulmonic Valve The pulmonic valve is likely normal. Tricuspid Valve Normal tricuspid valve structure. There is trace tricuspid valve regurgitation. The right ventricular systolic pressure is normal. The right ventricular systolic pressure is 20 mmHg. Normal right atrial pressure. There is no evidence of pulmonary hypertension. Great Vessels All visible segments of the aorta are normal in size. The pulmonary artery was not well visualized. Venous The inferior vena cava is normal in size and collapses greater than 50% with inspiration. Pericardium/Pleural There is no evidence of pericardial effusion. Prior Study Comparison No prior study available for comparison. Measurements 2D Linear Measurements IVSd: 0.69 0.6-0.9/0.6-1.0 cm LVIDd: 4.75 3.9-5.3/4.2-5.9 cm LVIDd Index: 2.31 2.4-3.2/2.2-3.1 cm/m2 LVIDs: 3.22 2.0-3.6 cm LVPWd: 0.79 0.7-1.1 cm LA Diam: 3.40 2.7-3.8/3.0-4.0 cm LAIDs Index: 1.65 1.5-2.3 cm/m2 LV Mass: 139.65 67-162/88-224 g LV Mass Index: 67.79 43-95/49-115 g/m2 LVOT Diam: 2.20 3.0+(-)1.3 cm 2D Systolic Function EF 4C: 62.60 >55% EF 2C: 58.80 >55% EF BiP: 61.50 >55% Mitral Valve MV Pk E: 0.78 MV PK A: 0.34 MV Decel Time: 139.00 E/A: 2.30 E'Lateral: 14.50 E'Medial: 8.38 E/E' Med: 9.30 E/E' Lat: 5.40 PHT: 41.00 MVA PHT: 5.37 Decel [place]: 5.57 Aortic Valve AoV Pk Nicholas: 1.01 AoV Mn Nicholas: 0.75 AoV VTI: 0.23 AoV Pk Grad: 4.00 Aov Mn Grad: 3.00 HAILEE Cont.VTI: 3.23 LVOT LVOT Pk Nicholas: 0.93 LVOT Mn Nicholas: 0.57 LVOT VTI: 0.20 LVOT Pk Grad: 3.00 LVOT Mn Grad: 2.00 LVOT Diam: 2.20 LVOT Area: 3.80 Diastolic Function MV Pk E: 0.78 MV Pk A: 0.34 E/A: 2.30 E'Medial: 8.38 E/E' Med: 9.30 E' Laterial: 14.50 E/E' Lat: 5.40 Right Ventricle TAPSE (mm): 20.40 TVS' Nicholas: 11.90 Tricuspid Valve TR Pk Nicholas: 2.06 TR Pk Grad: 17.00 RA Press: 3.00 RVSP: 20.00 Great Vessels Aorta Sinus of Valsalva: 3.53 2.0-3.[address] Ridge: 2.33 1.7-3.4 cm Ao Asc: 3.10 2.1-3.4 cm Ao Arch: 2.60 Updated in Other Vendor System with Status of Final Tae Burt MD electronically signed on 10/06/2023 4:14:13 PM with status of Final
== END ==
LOC: HO.CARD 07:53
PROVIDERS: PCP Physician Assistant Medical; Visit Provider Nurse Practitioner
DX: R07.9 Chest pain, unspecified (principal); R00.0 Tachycardia, unspecified
CPT/HCPCS: 93017; 93242; 93306; 93356

== ENCOUNTER → 2023-10-05 07:57 | Outpatient (BNV) | payer OTHER, SELFPAY | PROVIDERS: PCP Physician Assistant Medical; Visit Provider Nurse Practitioner | DX: R07.9 Chest pain, unspecified (principal); R00.0 Tachycardia, unspecified | CPT/HCPCS: 93016; 93018; 93244; 93350; 93356 ==

== ENCOUNTER → 2023-10-23 10:42 | Outpatient (REF) | payer OTHER, SELFPAY ==
--- NOTE | 2023-10-23 10:48 | CA_ITS ---
Acquisition Time: 2023-10-23 10:48:09 Total Exercise Time: 00:12:45 Test Indications: CHEST SANDHYA N Medications: Protocol: NAPOLEON Max HR: 171 BPM 92% of Pred: 185 BPM Max BP: 168/080 mmHG Max Work Load: 14.8 METS Exercise stress test exercise 12 min 45 sec of Napoleon protocol achieving 92% MPHR, with mild SOB, no chest discomfort, without arrhythmias, with normotensive response to exercise, with inverted T wave lead 2, 3, aVF, V3 during exercise which was correcte during rest. Echo images obtaiend by tech at rest and immeiately post peak exercise. Definity contrast used. Test reviewed with Dr. Burt Referred By: Niya Pruett Overread By: Niya Pruett
== END ==
LOC: HO.CARD 10:42
PROVIDERS: PCP Physician Assistant Medical; Visit Provider Nurse Practitioner
DX: R07.9 Chest pain, unspecified (principal)
CPT/HCPCS: 93350; Q9957

== ENCOUNTER → 2023-10-23 10:48 | Outpatient (BNV) | payer OTHER, SELFPAY | PROVIDERS: PCP Physician Assistant Medical; Visit Provider Nurse Practitioner | DX: R07.9 Chest pain, unspecified (principal) | CPT/HCPCS: 93350; 93356 ==

== ENCOUNTER 2023-11-21 12:59 | Outpatient (AMB) | payer OTHER, SELFPAY ==
--- NOTE | 2023-11-21 13:25 | MHC.OFFVIS ---
Vital Signs 11/21/23 13:26 Height 6 ft Weight 188 lb BMI 25.5 BP 116/72 Blood Pressure Location Lt brachial Position Sitting Pulse 85 Pulse Source Pulse Oximeter Pulse Oximetry (%) 93 Oxygen Delivery Method Room Air Intake Visit Reasons: f/up echo/ ett Intake Note: follow up after echo/ett pt feels good Allergies cefaclor [From Ceclor] Allergy (Verified 08/31/23 15:35) Rash levofloxacin [From Levaquin] Allergy (Verified 08/31/23 15:35) Anaphylaxis loratadine [From Claritin] Allergy (Verified 08/31/23 15:35) Anaphylaxis Medication List - Last Reconciled 11/21/23 by Niya Pruett NP albuterol sulfate 90 mcg/actuation 1 inh inhalation QID PRN albuterol sulfate 5 mg inhalation Q6H PRN inhalational spacing device (Aerochamber Plus Z Stat spacer) As directed nebulizers As directed HPI Comments Details: 33-year-old male presents today for a follow-up after testing. Patient report he has been doing well. Chest pains and palpitations have resolved. [facility] Medical History (Updated 09/13/23 @ 09:44 by Niya Pruett NP) Tachycardia Asthma Family History Mother TIA (transient ischemic attack) PFO (patent foramen ovale) Atrial septal aneurysm Social History Alcohol intake: current Alcohol intake frequency: holidays/special occasions only Patient Tobacco Use Status: Former Tobacco user Quit Date: 2015 Tobacco use type: Smokeless Tobacco Substance Use Type: Marijuana Review of Systems Const Denies weakness ENT Denies dizziness Card Denies chest pain, Denies chest pain with activity, Denies syncope, Denies rapid heart rate, Denies pedal edema, Denies edema, Denies leg edema, Denies lightheadedness, Denies palpitations, Denies dyspnea, Denies dyspnea on exertion and Denies orthopnea Resp Denies cough, Denies dyspnea and Denies dyspnea on exertion GI Denies hematochezia and Denies change in stool character Musc Denies abnormal gait, Denies muscle cramps, Denies muscle weakness, Denies numbness, Denies radiating pain into limb and Denies tingling Neuro Denies abnormal gait, Denies dizziness, Denies syncope, Denies numbness, Denies tingling and Denies weakness Endo Denies palpitations Physical Exam Vital Signs: Last Vital Signs Pulse 85 11/21/23 13:26 BP 116/72 11/21/23 13:26 Pulse Ox 93 11/21/23 13:26 Oxygen Delivery Method Room Air 11/21/23 13:26 BMI result Body Mass Index 25.5 Const General: healthy appearing and no acute distress Orientation/consciousness: patient oriented x3 HEENT Head: Yes normal to inspection Eyes General: appearance normal, both eyes and all related structures Neck Neck: Yes normal visual inspection Chest Chest palpation & inspection: normal inspection of the chest Resp Effort & Inspection: normal respiratory effort Auscultation: clear to auscultation bilaterally Cardio Jugular venous distension: no JVD Palpation: normal PMI Rate: regular rate Rhythm: regular rhythm Heart sounds: S1 normal heart sound present, S2 normal heart sound present, no click, no gallops, no murmurs and no rubs GI Inspection: Yes normal to inspection Palpation (GI): Soft to palpation Skin General skin exam: no rashes or lesions noted Neuro General: patient oriented x3 Extrem General: Yes normal to inspection Psych Appearance: grossly normal Results Reviewed Results Reviewed: Stress Echo Conclusion : Stress echo is negative for ischemia or diastolic dysfunction, Echo Conclusions: - Normal study Holter: Conclusion: 1. Patient was monitored for total period of 3 days and 2 hours 2. Baseline was normal sinus rhythm with average heart of 76 beats per minute 3. No significant arrhythmias or pauses noted 4. Patient reported 1 event without associated symptoms correlating with sinus arrhythmia Assessment & Plan Assessment & Plan (1) Chest pain: Code(s): R07.9 - Chest pain, unspecified Category: Medical (2) Tachycardia: Code(s): R00.0 - Tachycardia, unspecified Category: Medical Plan Holter showed normal sinus rhythm with average rate of 76 bpm. Echo was a normal study. Stress echo was negative or ischemia or diastolic dysfunction. Recurrence given. Likely was related to stress due to home stress. Advised reduction in caffeine, stress mitigation, and avoidance of stimulants. Follow-up as needed. Patient reports understanding and agrees to plan. Coding Level of Care Code Est Pt Level 3 (41888) Diagnoses Chest pain R07.9 Tachycardia R00.0
[2023-11-21 13:26] VITALS: BP 116/72; PULSE 85; O2SAT 93; BMI 25.5
== END 2023-11-21 13:39 | disposition home or self-care (01) ==
PROVIDERS: PCP Physician Assistant Medical; Visit Provider Nurse Practitioner
DX: R07.9 Chest pain, unspecified (principal); R00.0 Tachycardia, unspecified
CPT/HCPCS: 99213

== ENCOUNTER → 2023-11-21 12:59 | Outpatient (BNVA) | payer OTHER, SELFPAY | PROVIDERS: PCP Physician Assistant Medical; Visit Provider Nurse Practitioner | DX: R07.9 Chest pain, unspecified (principal); R00.0 Tachycardia, unspecified ==

== ENCOUNTER 2025-05-25 04:14 | Inpatient (IN) | payer OTHER, SELFPAY ==
[2025-05-25] VITALS (37 sets, daily range): BP systolic 92–148; BP diastolic 45–90; PULSE 84–130; RESP 18–40; TEMP 36.8–37.5; O2SAT 80–97; BMI 30.8
--- NOTE | ~2025-05-25 | XR_ITS ---
CLINICAL HISTORY: sob 1 view chest x-ray Comparison: CR/SR - XR CHEST 2 VIEWS - 08/31/23 15:[address]/SR - CT CHEST ANGIOGRAPHY WITH IV CONTRAST - 01/05/23 18:13 EDT Findings: The lungs are clear without consolidation or effusion. Heart size is normal. No acute fracture. IMPRESSION: No acute cardiopulmonary findings. This document has been electronically signed by: Mark Peres MD on 05/25/2025 05:00:00
--- NOTE | ~2025-05-25 | CT_ITS ---
CLINICAL HISTORY: Dyspnea. ?PE CT angiography chest with contrast. 3D Postprocessing. Comparison: CT/SR - CT CHEST ANGIOGRAPHY WITH IV CONTRAST - 01/05/23 18:13 EDT Findings: The heart is normal size. RV/LV ratio is normal. Unremarkable thoracic aorta and great vessels. No aneurysm. No main or segmental pulmonary emboli identified. Pneumomediastinum tracking in the left axillary region and the left anterior soft tissue neck. Hiatal hernia. Prior periaortic lymphadenopathy now subcentimeter in size, axial image 53 of 144. The lungs are clear. The upper abdomen is unremarkable. The bones are intact. IMPRESSION: 1. Pneumomediastinum tracking in the left axillary region and left anterior soft tissue neck. 2. Hiatal hernia. 3. No main or segmental pulmonary emboli identified. 4. No acute intrathoracic findings. This document has been electronically signed by: Angelo Flores MD on 05/26/2025 17:28:39
--- NOTE | 2025-05-25 04:20 | ECG_ITS ---
Test Reason : SOB Blood Pressure : */* mmHG Vent. Rate : 108 BPM Atrial Rate : 108 BPM P-R Int : 138 ms QRS Dur : 76 ms QT Int : 300 ms P-R-T Axes : 81 86 60 degrees QTcB Int : 402 ms Sinus tachycardia Right atrial enlargement Nonspecific ST abnormality Abnormal ECG When compared with ECG of 31-Aug-2023 15:26, Vent. rate has increased by 44 bpm Nonspecific T wave abnormality has replaced inverted T waves in Inferior leads Nonspecific T wave abnormality no longer evident in Anterolateral leads Referred By: Ligia Jordan Electronically Signed By: YANNI HAYDEN
--- NOTE | 2025-05-25 04:20 | ED_ITS ---
HPI - General Adult General Chief complaint: Dyspnea Stated complaint: sob Time Seen by Provider: 05/25/25 04:18 Source: patient Mode of arrival: ambulatory Limitations: no limitations History of Present Illness ED Provider: Dr. Jordan HPI narrative: 35-year-old male history of asthma presented hospital for shortness of breath. At this has been going on for the past couple of days. Symptoms of upper respiratory infection and coughing. History is limited due to patient's degree of shortness of breath. Patient is found to be satting 80% on room air. Related Data Previous Rx's ?Medication ?Instructions ?Recorded albuterol sulfate 2.5 mg/0.5 mL 5 mg inhalation Q6H MS N shortness 01/05/23 solution for nebulization of breath or wheezing #30 ea albuterol sulfate 90 mcg/actuation 1 inh inhalation QI D PRN shortness 01/05/23 aerosol inhaler of breath or wheezing #6.7 g adam inhalational spacing device #1 ea 01/05/23 (Aerochamber Plus Z Stat spacer) nebulizers #1 ea 01/05/23 Allergies Allergy/AdvReac Type Severity Reaction Status Date / Time cefaclor (From Ceclor) Allergy Rash Verified 05/25/25 04:20 levofloxacin (From Levaquin) Allergy Anaphylaxis Verified 05/25/25 04:20 loratadine (From Claritin) Allergy Anaphylaxis Verified 05/25/25 04:20 Review of Systems 2 Review of Systems: Pertinent review of systems as mentioned in HPI. All other system otherwise negative. [facility] Past Medical History [facility] Narrative: Asthma Medical History (Updated 05/25/25 @ 04:55 by Ligia Jordan DO) Tachycardia Asthma Family History Family History Mother TIA (transient ischemic attack) PFO (patent foramen ovale) Atrial septal aneurysm Social History Social History Alcohol intake: current Alcohol intake frequency: holidays/special occasions only Patient Tobacco Use Status: Former Tobacco user Tobacco use type: Smokeless Tobacco Substance Use Type: Marijuana Advance Directives: No Advance Directives Information Provided: Yes Do you have a plan to hurt others: No Plan Physical Exam ED Exam Exam: General: Pleasant, no distress, interacting appropriately Head: Normacephalic, atraumatic ENT: oral mucosa moist, neck supple, no tracheal deviation Cardiovascular: Tachycardic rate, regular rhythm, no murmurs, rubbing, gallops Respiratory: Bilateral wheezing on exam, diminished lung sounds bilaterally Gastrointestinal: Soft, non distended, non tender, non guarding Extremities: No limb pain or swelling, no calf tenderness Neurological: Awake and alert, no facial droop noted Skin: Warm and dry Psychiatric: Appropriate mood and thoughts Vital Signs: Vital Signs - 24 hr 05/25/25 04:19 05/25/25 04:24 05/25/25 04:28 Pulse Rate 115 H 109 H 109 H Respiratory Rate 40 H Blood Pressure 148/90 H 148/90 H Pulse Oximetry 80 L Oxygen Delivery Method Room Air 05/25/25 04:42 05/25/25 04:42 05/25/25 06:19 Pulse Rate 126 H 114 H Respiratory Rate 35 H 32 H 34 H Blood Pressure 104/60 Pulse Oximetry 93 Oxygen Delivery Method BiPAP 05/25/25 06:31 Pulse Rate Respiratory Rate 30 H Blood Pressure Pulse Oximetry Oxygen Delivery Method BMI result Body Mass Index 30.8 Medications Administered Generic Name Dose Route Start Last Admin Trade Name Freq PRN Reason Stop Dose Admin Azithromycin 500 mg/ Sodium 250 mls @ 125 mls/hr 05/25/25 06:29 05/25/25 06:44 Chloride IV 05/25/25 08:28 125 mls/hr ONCE ONE Administration Discontinued Medications Generic Name Dose Route Start Last Admin Trade Name Freq PRN Reason Stop Dose Admin Albuterol Sulfate 7.5 mg/ 0 mg 05/25/25 04:37 05/25/25 04:45 Albuterol/Ipratropium 3 ml INHALE 05/25/25 04:38 10 each ONCE ONE Administration Epinephrine 0.3 mg 05/25/25 04:21 05/25/25 04:24 Epinephrine 1 Mg/Ml Vial IM 05/25/25 04:22 0.3 mg STAT STA Administration Magnesium Sulfate 2 gm in 50 mls @ 50 mls/hr 05/25/25 04:18 05/25/25 06:44 Magnesium Sulfate/H2o IV 05/25/25 05:17 Infused ONCE ONE Infusion Sodium Chloride 1,000 mls @ 999 mls/hr 05/25/25 05:45 05/25/25 05:47 Ns IV 05/25/25 06:45 999 mls/hr .Q1H1M TESSA Administration Magnesium Sulfate 2 gm in 50 mls @ 50 mls/hr 05/25/25 05:38 05/25/25 06:59 Magnesium Sulfate/H2o IV 05/25/25 06:37 Infused ONCE ONE Infusion Methylprednisolone Sodium Succinate 125 mg 05/25/25 04:19 05/25/25 04:24 Methylprednisolone Sod Succ 125 Mg/2 Ml Vial IVPUSH 05/25/25 04:20 125 mg ONCE ONE Administration Medical Decision Making Medical Decision Making [facility] Narrative: This is a 35-year-old male history of asthma presented hospital today for evaluation of shortness of breath. Patient's appear to be in acute respiratory failure at this time. Patient will be placed on BiPAP. He appears to be retracting significantly with elevated respiratory rate. Patient does have diminished lung sounds with wheezing. I suspect he likely has asthma exacerbation. We will plan to give patient some IV magnesium, IM epinephrine, IV Solu-Medrol, albuterol we will be given to patient. Respiratory therapist notified. Patient does have slight improvement after being on BiPAP and medication. We will continue to observe the patient closely at this time. Portable chest x-ray did not show any signs of consolidation. EKG shows sinus tachycardia with ST depressions. Likely secondary to demand ischemia from respiratory failure. Patient has received multiple breathing treatment at this time. His lung sounds has improve. Patient states he does feel better. However still requiring BiPAP at this time. Breathing in the upper 20s. I suspect patient may need more time on the BiPAP. Patient will be admitted to the ICU team. Differential Diagnosis Differential Diagnoses: The differential diagnosis associated with the presentation includes Respiratory failure, asthma exacerbation, pneumonia, URI Lab Data [facility] Lab Attestation statement: I reviewed the patient's lab results. 05/25/25 04:25 05/25/25 04:25 Labs: Lab Results 05/25/25 05/25/25 05/25/25 Range/Units 04:24 04:25 04:34 WBC 14.7 H (4.8-10.8) X10*3/uL RBC 5.59 (4.60-5.80) X10*6/uL Hgb 16.1 (14.0-18.0) g/dl Hct 46.1 (42.0-52.0) % MCV 82.5 (80.0-98.0) fL MCH 28.8 (27.0-33.0) pg MCHC 34.9 (31.0-36.0) g/dl RDW 12.0 (11.0-16.0) % Plt Count 250 (160-400) X10*3/uL MPV 8.6 L (9.4-12.4) fL Immature Gran % (Auto) 0.4 (0.0-0.4) % Neut % (Auto) 66.3 (45-73) % Lymph % (Auto) 19.2 L (20-40) % Randall % (Auto) 7.1 (2-11) % Eos % (Auto) 6.5 H (0-4) % Baso % (Auto) 0.5 (0-2) % Lymph # (Auto) 2.8 (1.2-4.9) X10*3/uL Randall # (Auto) 1.0 (0.1-1.2) X10*3/uL Eos # (Auto) 1.0 H (0.0-0.4) X10*3/uL Baso # (Auto) 0.1 (0.0-0.2) X10*3/uL Abs Immat Gran (auto) 0.06 H (0.00-0.03) X10*3/uL Absolute Neuts (auto) 9.8 H (2.0-8.3) x10*3/uL Absolute Nucleated RBC 0.000 (0.0-0.012) X10*3/uL Nucleated RBC % (auto) 0.0 (0.0-0.2) /100WBC Hold Purple Top SEE NOTE VBG pH 7.34 (7.32-7.43) VBG pCO2 49 mmHg VBG pO2 68 mmHg VBG HCO3 26 (22-26) mmol/L VBG O2 Saturation 89.0 % VBG Base Excess 0.3 mmol/L Sodium 141 (135-145) mmol/L Potassium 3.9 (3.3-5.1) mmol/L Chloride 107 (96-108) mmol/L Carbon Dioxide 22 (22-29) mmol/L Anion Gap 16 (12-20) BUN 10 (9-16) mg/dL Creatinine 0.95 (0.5-1.4) mg/dL Estim Creat Clear Calc 106.1 Estimated GFR > 60 Random Glucose 114 (60-115) mg/dL Calcium 9.4 D (8.4-10.2) mg/dL Hold Red Top See Note Hold Green Top See Note COVID-19 (ELEAZAR) Negative (Negative) COVID-19 Clin Com See Note Influenza Type A (NORBERTO) Negative (Negative) Influenza Type B (NORBERTO) Negative (Negative) Influenza A & B Note See Note Independent Interpretation I performed an independent interpretation of an: EKG and Plain X-Ray Radiology Impression Discussion of test interpretation with radiology: I have reviewed the radiologist's reading. Chronic Conditions Asthma Critical Care Time Critical Care Time Critical Care Time: Yes Total Critical Care Time: 36 Attestation: Time is exclusive of separately billable procedures. Time includes: direct patient care, patient reassessment, coordination of patient care, interpretation of data (laboratory data, pulse oximetry, arterial blood gases and chest xrays), review of patient's medical records, medical consultation and documentation of patient care. Procedures excluded from critical care time: central intravenous line placement and electrocardiography. Discharge Plan Discharge Clinical Impression: Respiratory failure, Asthma Patient Disposition: Admitted As Inpatient
[2025-05-25] MEDS: Magnesium Sulfate/H2O 2 GM/50 ML PIGGYBACK IV ×2 (04:24→05:44)
[2025-05-25 04:33] LABS: MANUAL DIFF FLAG NO
[2025-05-25 04:34] LABS: Hematocrit 46.1 % (42.0-52.0); Hemoglobin 16.1 g/dl (14.0-18.0); Imm Gran Abs Auto 0.06 X10*3/uL (0.00-0.03); Imm Gran Pct Auto 0.4 % (0.0-0.4); Lymphocytes Absolute Auto 2.8 X10*3/uL (1.2-4.9); Mean Corpuscular HGB Conc 34.9 g/dl (31.0-36.0); Mean Corpuscular Hemoglobin 28.8 pg (27.0-33.0); Mean Corpuscular Volume 82.5 fL (80.0-98.0); NRBC Abs Auto 0.000 X10*3/uL (0.0-0.012); NRBC Pct Auto 0.0 /100WBC (0.0-0.2); Platelet Count 250 X10*3/uL (160-400); Red Blood Count 5.59 X10*6/uL (4.60-5.80); White Blood Count 14.7 X10*3/uL (4.8-10.8)
[2025-05-25 04:39] LABS: Venous Blood Gas Refer to POC result
[2025-05-25] MEDS: Albuterol Sulfate 7.5 MG, Albuterol/Iprat 2.5/0.5MG 3 ML 3 ML INHALE (04:45)
[2025-05-25 04:47] LABS: Anion Gap 16 (12-20); Blood Urea Nitrogen 10 mg/dL (9-16); Calcium 9.4 mg/dL (8.4-10.2); Carbon Dioxide 22 mmol/L (22-29); Chloride 107 mmol/L (96-108); Creatinine Clr Calc Pharmacy 106.1; Estimated Glomerular Filt Rate > 60; Potassium 3.9 mmol/L (3.3-5.1); Sodium 141 mmol/L (135-145)
--- NOTE | 2025-05-25 04:47 | PC.NURSE ---
pt reports SOB starting today, hx of asthma, sp02 upon arrival to the ED 80%, provider, this RN, respiratory therapy at bedside. tacky in 130's with high RR. pt medicated per SEP.
[2025-05-25 05:00] LABS: VBG HCO3 26 mmol/L (22-26); VBG O2 % Saturation 89.0 %
[2025-05-25 05:01] LABS: COVID-19 Test Negative (Negative); IDNOW Serial# 152EDE1D; IDNOW Serial# 16C4AD1C; Influenza B2 Negative (Negative)
--- OUTSIDE RECORDS SUMMARY | 2025-05-25 05:15 | XMS_ITS | Data Portability ---
Author Organization [place] - [facility], [id number] Address [address] [place] [address] Assessment No assessment recorded. Plan of Treatment Reminders Order Date Submit Date Provider Last Modified By Organization Details Last Modified Time Details Appointments None record ed. Lab None record ed. Referral None record ed. Procedures None record ed. Surgeries None record ed. Imaging None record ed. Medication Orders None record ed. Patient TargetsNo targets recorded. Patient InstructionsNo instructions recorded. Reason for Referral None Reported. Medical Equipment None Reported. Vitals Date Recorded Body height Body mass index (BMI) Body weight Respiratory rate Body temperature Heart rate Oxygen saturation Oxygen saturation in Arterial blood by Pulse oximetry Systolic And Diastolic Provider Name and Address Organization Details Last Updated DateTime 3 182.88 cm 25.1 kg/m2 46106.5 9 g 22 /min 100.4 [degF] 122 /min 96 % 96 % 134/94 mm[Hg] HELENA Carl [place] - [facility] 3 09:43:31 Social History None recorded. Functional Status None recorded. Mental Status None recorded. Family History Nothing Reported. Medical History No medical history recorded. Past Encounters Encounter ID Performer Location Encounter Start Date Encounter Closed Date Diagnosis/Indication Diagnosis SNOMED-CT Code Diagnosis ICD10 Code Diagnosis IMO Codes Diagnosis Note [id number] [address] [facility] [address] [address] 07/26/2019 16:04:04 07/26/2019 17:03:43 [id number] [address] [address] 07/23/2017 08:15:11 07/23/2017 08:55:14 [id number] [address] [facility] [address] [place] [address] 06/30/2021 10:30:16 06/30/2021 11:25:07 [id number] [address] [facility] [address] [place] [address] 03/12/2015 19:38:16 03/12/2015 20:43:43 [id number] [address] [facility] [address] [place] [address] 11/07/2021 11:26:46 11/07/2021 12:52:19 [id number] Damion Granda, RX SPECIALIST [facility] [address] [place] [address] 01/05/2023 09:37:35 01/05/2023 10:01:51 Left without being seen [id number] Z53.21 Health Concerns Section Related Observation LastModified by Organization Detai ls LastModified Time None Recorded Concern Status LastModified by Organization Details LastModified Time None Recorded Advance Directives Directive None Recorded Payers Insurance Date Sequence Insurance Name Policy Number Policy Andres Covered Member ID Andres Member ID Guarantor Name 01/05/2023 1 [facility] [id number] Michael Bo [id number] Michael Bo
--- NOTE | 2025-05-25 06:46 | PM.CCHP ---
History of Present Illness Date of Service: 05/25/25 Attending physician on admission: Maryam Alejandra Chief Complaint: Asthma Exacerbation Patient is a 35 Y M w/ asthma presenting to ED on 05/25 w/ upper respiratory symptoms, found to be hypoxic, c/f asthma exacerbation, necessitating non-invasive Review of Systems Review of Systems: Yes all other systems are reviewed and are negative PMFSH Past Medical History Medical History (Updated 05/25/25 @ 04:55 by Ligia Jordan DO) Tachycardia Asthma Family History Family History Mother TIA (transient ischemic attack) PFO (patent foramen ovale) Atrial septal aneurysm Social History Social History Household Members: Spouse Housing: House Do you presently have visiting nurse or other home services: No Alcohol intake: current Alcohol intake frequency: holidays/special occasions only Patient Tobacco Use Status: Former Tobacco user Tobacco use type: Smokeless Tobacco Substance Use Type: Marijuana Have you been hit, kicked, punched, or otherwise hurt by someone within the past year? If so, by whom?: No Do you feel safe in your current relationship?: Yes Is there a partner from a previous relationship who is making you feel unsafe now?: No Are you made to feel afraid or neglected: No Advance Directives: No Advance Directives Information Provided: Yes Do you have a plan to hurt others: No Plan Recently lost weight without trying: No Nutrition Risks: No Nutritional Risk Meds Allergies Allergy/AdvReac Type Severity Reaction Status Date / Time cefaclor (From Ceclor) Allergy Rash Verified 05/25/25 04:20 levofloxacin (From Levaquin) Allergy Anaphylaxis Verified 05/25/25 04:20 loratadine (From Claritin) Allergy Anaphylaxis Verified 05/25/25 04:20 Active Medications: Current Medications Albuterol Sulfate 2.5 mg/ (Albuterol/Ipratropium 3 ml) 0 mg INHALE RQ4H WHILE AWAKE TESSA Enoxaparin Sodium (Enoxaparin Sodium 40 Mg/0.4 Ml Syringe) 40 mg SUBCUT Q24H TESSA Azithromycin 500 mg/ Sodium (Chloride) 250 mls @ 125 mls/hr IV ONCE ONE Stop: 05/25/25 08:28 Last Admin: 05/25/25 06:44 Dose: 125 mls/hr Methylprednisolone Sodium Succinate (Methylprednisolone Sod Succ 125 Mg/2 Ml Vial) 60 mg IVPUSH DAILY TESSA Home Medications ?Medication ?Instructions ?Recorded ?Confirmed ?Last Taken ?Type sertraline 100 mg tablet 100 mg PO DAILY 05/25/25 05/25/25 Unknown History Physical Exam Vital Signs: Vital Signs: Last Vital Signs Pulse 114 H 05/25/25 06:19 Resp 30 H 05/25/25 06:31 BP 104/60 05/25/25 06:19 Pulse Ox 93 05/25/25 06:19 O2 Del Method BiPAP 05/25/25 06:19 BMI result Body Mass Index 30.8 Const: General: cooperative, healthy appearing, comfortable, no acute distress, well developed, alert, awake and Physically active Orientation/consciousness: patient oriented x3 HEENT: Head: Yes normal to inspection, Yes normocephalic and Yes atraumatic Eyes: General: appearance normal, both eyes and all related structures Neck: Neck: Yes normal visual inspection, Yes full ROM, Yes no meningeal signs, Yes trachea midline and Yes supple Chest: Chest palpation & inspection: normal inspection of the chest Resp: Other: appreciable wheezing; no appreciable overt rales, rhonchi Effort & Inspection: normal respiratory effort Cardio: Rate: tachycardic Rhythm: regular rhythm GI: Inspection: Yes normal to inspection, No Abdominal wall edema and No distended Palpation (GI): Soft to palpation, not firm, nontender, no guarding and not rigid Skin: General skin exam: no rashes or lesions noted Neuro: General: patient oriented x3, tone normal, moves all extremities, no meningeal signs and no focal motor deficits Extrem: General: Yes normal to inspection, Yes full ROM, Yes capillary refill normal and Yes no clubbing, cyanosis or edema Psych: Appearance: grossly normal Results Labs 05/25/25 04:25 05/25/25 04:25 Labs: Laboratory Results - last 24 hr 05/25/25 05/25/25 05/25/25 04:24 04:25 04:34 MCV 82.5 MCH 28.8 MCHC 34.9 RDW 12.0 Plt Count 250 MPV 8.6 L Immature Gran % (Auto) 0.4 Neut % (Auto) 66.3 Lymph % (Auto) 19.2 L [place] % (Auto) 7.1 Eos % (Auto) 6.5 H Baso % (Auto) 0.5 Lymph # (Auto) 2.8 [place] # (Auto) 1.0 Eos # (Auto) 1.0 H Baso # (Auto) 0.1 Abs Immat Gran (auto) 0.06 H Absolute Neuts (auto) 9.8 H Absolute Nucleated RBC 0.000 Nucleated RBC % (auto) 0.0 Hold Purple Top SEE NOTE VBG pH 7.34 VBG pCO2 49 VBG pO2 68 VBG HCO3 26 VBG O2 Saturation 89.0 VBG Base Excess 0.3 Anion Gap 16 Estim Creat Clear Calc 106.1 Estimated GFR > 60 Random Glucose 114 Calcium 9.4 D Hold Red Top See Note Hold Green Top See Note COVID-19 (ELEAZAR) Negative COVID-19 Clin Com See Note Influenza Type A (NORBERTO) Negative Influenza Type B (NORBERTO) Negative Influenza A & B Note See Note Assessment and Plan (1) Asthma: Qualifiers: Asthma complication type: with acute exacerbation Asthma persistence: unspecified Asthma severity: unspecified severity Qualified Code(s): J45.901 - Unspecified asthma with (acute) exacerbation Status: Acute (2) Respiratory failure: Qualifiers: Chronicity: acute Respiratory failure complication: hypoxia Qualified Code(s): J96.01 - Acute respiratory failure with hypoxia Status: Acute Plan Patient is a 35 Y M w/ asthma presenting to ED on 05/25 w/ upper respiratory symptoms, found to be hypoxic, c/f asthma exacerbation, necessitating non-invasive N: no acute issues CV: no acute issues; to closely monitor R: asthma exacerbation d/t upper respiratory infection, BiPAP, wean as tolerated, medical management w/ duonebs, steroids, empiric antibiotics, s/p magnesium GI: NPO while on BiPAP, otherwise regular diet : no acute issues H: no acute issues; chemical DVT prophylaxis ID: c/f upper respiratory infection, empiric azithromycin E: no acute issues P: no acute issues
--- NOTE | 2025-05-25 07:13 | HO.NURTONUR ---
Care of Pt assumed at change of shift (0700.) Pt admitted to ICU for Respiratory Distress Pt comes to ED with SOB, visible labored breathing, and tachycardia. RA O2 sats 80%. RR rate elevated. Pt treated with IV Magnesium, Solu-medrol, and Epi. Seen by RT and placed on Bipap. A&Ox3 Bilat IV access IVF and Azithromycin running at this time. Urinal use at this time d/t being on bipap. Pt able to repositions himself in bed as needed.
[2025-05-25] MEDS: Albuterol Sulfate 2.5 MG, Albuterol/Iprat 2.5/0.5MG 3 ML 3 ML INHALE ×4 (07:43→19:27)
--- NOTE | 2025-05-25 09:34 | PHA.MEDREC ---
Pharmacy Consult ? Medication Reconciliation Pharmacy has completed the medication reconciliation. Patient unable to speak to me regarding his medications. Utilized medical record and recent pharmacy claims.
[2025-05-25 11:49] LABS: Chlamydia pneumoniae PCR Not Detected (Not Detect.); Coronavirus 229E PCR Not Detected (Not Detect.); Coronavirus HKU1 PCR Not Detected (Not Detect.); Coronavirus NL63 PCR Not Detected (Not Detect.); Coronavirus OC43 PCR Not Detected (Not Detect.); RSV PCR Not Detected (Not Detect.); Rhino/Enterovirus PCR Detected (Not Detect.)
[2025-05-25 11:50] LABS: Influenza A H1 PCR Not Detected (Not Detect.); Influenza A H1-2009 PCR Not Detected (Not Detect.); Influenza A H3 PCR Not Detected (Not Detect.); SARS-CoV-2 PCR Not Detected (Not Detect.)
--- NOTE | 2025-05-25 13:05 | MHC.CM.PN ---
Attempted to meet with patient in regards to discharge planning. Patient currently on bipap. Spoke with patient's , Brooke, via telephone at [phone]. Patient lives with Brooke. Patient lives with , ambulates independently and had no services prior to coming to the hospital. PCP verified. Brooke does not believe patient ever completed a HCP. No services anticipated to be needed at d/c because patient is not homebound. [facility] will transport patient home when medically stable. Continue to monitor for d/c needs.
[2025-05-25 15:22] LABS: Glucose, Whole Blood 107 mg/dL (60-115)
[2025-05-25] MEDS: dexmedeTOMIDine HCL/NS 400 MCG/100 ML PLAST..BAG 20.98 MCG IVCONT (15:39)
[2025-05-25 16:05] LABS: VBG HCO3 23 mmol/L (22-26); VBG O2 % Saturation 100.0 %
[2025-05-25 16:05] LABS: Venous Blood Gas Refer to POC result
[2025-05-25] MEDS: dexmedeTOMIDine HCL/NS 400 MCG/100 ML PLAST..BAG 22.24 MCG IVCONT (19:07)
[2025-05-25 21:20] LABS: D Dimer High Sensitivity < 150 NG/ML
[2025-05-25] MEDS: dexmedeTOMIDine HCL/NS 400 MCG/100 ML PLAST..BAG 22.66 MCG IVCONT (22:41)
[2025-05-26] VITALS (27 sets, daily range): BP systolic 109–137; BP diastolic 63–86; PULSE 66–126; RESP 16–39; TEMP 36.6–37.2; O2SAT 90–98; BMI 30.8
--- NOTE | 2025-05-26 01:53 | PC.NURSE ---
Assumed care of patient at 1900. Patient A/O x4, upon initial assessment extremely anxious. Precedex drip infusing, Ativan and Morphine administered as ordered with good effect. SR/ST on telemetry. LS exp/ins wheezes throughout. Placed on bipap/tolerating well . VSS O2 sats 93-96 %. Remains NPO with sips of water , able to take po medications. Safety precautions in place. Call barrios within reach. CTA of chest ordered for am. Family at bedside updated. Plan of care ongoing.
[2025-05-26] MEDS: dexmedeTOMIDine HCL/NS 400 MCG/100 ML PLAST..BAG 22.66 MCG IVCONT ×2 (02:24→06:10)
[2025-05-26 05:04] LABS: VBG HCO3 27 mmol/L (22-26); VBG O2 % Saturation 99.0 %
[2025-05-26 05:05] LABS: Venous Blood Gas Refer to POC result
[2025-05-26 05:10] LABS: MANUAL DIFF FLAG NO
[2025-05-26 05:11] LABS: Hematocrit 39.0 % (42.0-52.0); Hemoglobin 13.8 g/dl (14.0-18.0); Imm Gran Abs Auto 0.06 X10*3/uL (0.00-0.03); Imm Gran Pct Auto 0.6 % (0.0-0.4); Lymphocytes Absolute Auto 1.8 X10*3/uL (1.2-4.9); Mean Corpuscular HGB Conc 35.4 g/dl (31.0-36.0); Mean Corpuscular Hemoglobin 28.9 pg (27.0-33.0); Mean Corpuscular Volume 81.8 fL (80.0-98.0); NRBC Abs Auto 0.000 X10*3/uL (0.0-0.012); NRBC Pct Auto 0.0 /100WBC (0.0-0.2); Platelet Count 195 X10*3/uL (160-400); Red Blood Count 4.77 X10*6/uL (4.60-5.80); White Blood Count 10.8 X10*3/uL (4.8-10.8)
[2025-05-26 05:25] LABS: Albumin Level 4.4 g/dL (3.5-5.0); Anion Gap 12 (12-20); Blood Urea Nitrogen 12 mg/dL (9-16); Calcium 8.8 mg/dL (8.4-10.2); Carbon Dioxide 26 mmol/L (22-29); Chloride 107 mmol/L (96-108); Creatinine Clr Calc Pharmacy 124.4; Estimated Glomerular Filt Rate > 60; Magnesium 2.8 mg/dL (1.6-2.6); Potassium 4.0 mmol/L (3.3-5.1); Sodium 141 mmol/L (135-145)
[2025-05-26] MEDS: Albuterol Sulfate 2.5 MG, Albuterol/Iprat 2.5/0.5MG 3 ML 3 ML INHALE ×4 (08:20→20:09)
[2025-05-26] MEDS: 0.9 % Sodium Chloride Flush 3 ML SYRINGE IVFLUSH ×4 (08:23→21:48)
--- NOTE | 2025-05-26 10:35 | P.PNCC_ITS ---
Subjective Subjective Date of Service: 05/26/25 Interval History: 35-year-old gentleman with underlying asthma with remote ICU admission for asthma symptoms, but no prior intubations admitted on 05/25/2025 with asthma exacerbation briefly requiring BiPAP support, now titrated off. No events overnight. Critical Care Time (minutes): 0 Physical Exam 2 Vital Signs: Vital Signs: Last Vital Signs Temp 98.6 F 05/26/25 08:00 Pulse 68 05/26/25 09:00 Resp 20 05/26/25 09:00 BP 123/77 05/26/25 09:00 Pulse Ox 90 L 05/26/25 09:00 O2 Del Method BiPAP 05/26/25 09:00 O2 Flow Rate 40 05/25/25 20:00 FiO2 40 05/26/25 09:00 BMI result Body Mass Index 30.8 Const: General: no acute distress, alert and awake Eyes: Sclerae: sclerae normal EOM: EOMs intact bilaterally Neck: Neck: Yes no lymphadenopathy, Yes trachea midline and Yes supple Resp: Effort & Inspection: normal respiratory effort and no respiratory distress Auscultation: wheezes (Mild expiratory bilateral) Cardio: Rate: regular rate Rhythm: regular rhythm Heart sounds: no gallops, no murmurs and no rubs GI: Palpation (GI): Soft to palpation and Other GI palpation findings present ( Nontender) Auscultation: normal bowel sounds Extrem: General: Yes no pedal edema, No clubbing and No cyanosis Objective Data Labs 05/26/25 04:56 05/26/25 04:56 Labs: Laboratory Results - last 24 hr 05/25/25 05/25/25 05/25/25 10:35 15:19 16:01 WBC RBC Hgb Hct MCV MCH MCHC RDW Plt Count MPV Immature Gran % (Auto) Neut % (Auto) Lymph % (Auto) Madison % (Auto) Eos % (Auto) Baso % (Auto) Lymph # (Auto) Madison # (Auto) Eos # (Auto) Baso # (Auto) Abs Immat Gran (auto) Absolute Neuts (auto) Absolute Nucleated RBC Nucleated RBC % (auto) D-Dimer High Sensitivty VBG pH 7.29 L VBG pCO2 47 VBG pO2 113 VBG HCO3 23 VBG O2 Saturation 100.0 VBG Base Excess -3.7 Sodium Potassium Chloride Carbon Dioxide Anion Gap BUN Creatinine Estim Creat Clear Calc Estimated GFR POC Glucose 107 Random Glucose Calcium Phosphorus Magnesium Albumin Respiratory Panel Luis See Note Adenovirus (Rapid PCR) Not Detected B.pert (TEM-PCR) Not Detected B.parapertussis DNA PCR Not Detected C. pneumoniae DNA (PCR) Not Detected Coronavirus OC43 (PCR) Not Detected Coronavirus HKU1 (PCR) Not Detected Coronavirus 229E (PCR) Not Detected Coronavirus NL63 (PCR) Not Detected Human Metapneumovir PCR Not Detected Influenza A (RT-PCR) Not Detected Influenza A (H1) PCR Not Detected Influ A (H1/09) PCR Not Detected Influenza A (H3) PCR Not Detected Influenza B (RT-PCR) Not Detected M. pneumoniae (PCR) Not Detected Parainfluenza 1 (PCR) Not Detected Parainfluenza 2 (PCR) Not Detected Parainfluenza 3 (PCR) Not Detected Parainfluenza 4 (PCR) Not Detected RSV (PCR) Not Detected Entero/Rhino (PCR) Detected A SARS-CoV-2 RNA (RT-PCR) Not Detected 05/25/25 05/26/25 05/26/25 20:07 04:56 04:59 WBC 10.8 RBC 4.77 Hgb 13.8 L Hct 39.0 L MCV 81.8 MCH 28.9 MCHC 35.4 RDW 12.4 Plt Count 195 MPV 8.5 L Immature Gran % (Auto) 0.6 H Neut % (Auto) 72.8 Lymph % (Auto) 16.8 L Madison % (Auto) 7.3 Eos % (Auto) 2.3 Baso % (Auto) 0.2 Lymph # (Auto) 1.8 Madison # (Auto) 0.8 Eos # (Auto) 0.3 Baso # (Auto) 0.0 Abs Immat Gran (auto) 0.06 H Absolute Neuts (auto) 7.9 Absolute Nucleated RBC 0.000 Nucleated RBC % (auto) 0.0 D-Dimer High Sensitivty < 150 VBG pH 7.43 VBG pCO2 41 VBG pO2 100 VBG HCO3 27 H VBG O2 Saturation 99.0 VBG Base Excess 3.1 Sodium 141 Potassium 4.0 Chloride 107 Carbon Dioxide 26 Anion Gap 12 BUN 12 Creatinine 0.81 Estim Creat Clear Calc 124.4 Estimated GFR > 60 POC Glucose Random Glucose 118 H Calcium 8.8 D Phosphorus 3.2 Magnesium 2.8 H Albumin 4.4 Respiratory Panel Luis Adenovirus (Rapid PCR) B.pert (TEM-PCR) B.parapertussis DNA PCR C. pneumoniae DNA (PCR) Coronavirus OC43 (PCR) Coronavirus HKU1 (PCR) Coronavirus 229E (PCR) Coronavirus NL63 (PCR) Human Metapneumovir PCR Influenza A (RT-PCR) Influenza A (H1) PCR Influ A (H1/09) PCR Influenza A (H3) PCR Influenza B (RT-PCR) M. pneumoniae (PCR) Parainfluenza 1 (PCR) Parainfluenza 2 (PCR) Parainfluenza 3 (PCR) Parainfluenza 4 (PCR) RSV (PCR) Entero/Rhino (PCR) SARS-CoV-2 RNA (RT-PCR) Progress Note: A&P Assessment and plan (1) Asthma: Status: Acute Plan Assessment: 35-year-old gentleman with underlying asthma admitted with asthma exacerbation briefly requiring BiPAP support, now titrated off. Plan: Neuro: No acute issues. Cardiac: No acute issues. Pulmonary: Asthma exacerbation briefly requiring BiPAP support, now titrated off, systemic glucocorticoids taper and nebulized bronchodilators. Would benefit from outpatient pulmonary follow-up. Renal: No acute issues. Endo: No acute issues. GI: No acute issues. ID: No acute issues Heme/Onc: No acute issues. Psych: No acute issues. Miscellaneous: No acute issues. Prophylaxis: Lovenox Diet: Regular Quality Stroke Does the patient have a stroke diagnosis?: No VTE Prior VTE?: No VTE Risk Level:: Medical - moderate - high VTE Device Contraindication: N/A - Device Ordered VTE Drug Contraindication: N/A - Med Ordered
--- NOTE | 2025-05-26 14:28 | MHC.CM.PN ---
Pt will be transferred to the medical floor for continued care - pt from home w/spouse, independent and no services anticipated.
[2025-05-26] MEDS: iohexoL 350 MG/ML 100 ML INFUS..BTL IV (17:06)
[2025-05-27] VITALS (12 sets, daily range): BP systolic 125–137; BP diastolic 62–83; PULSE 69–111; RESP 16–20; TEMP 36.7–36.9; O2SAT 93–99
[2025-05-27] MEDS: Albuterol Sulfate 2.5 MG, Albuterol/Iprat 2.5/0.5MG 3 ML 3 ML INHALE ×4 (07:43→19:30)
--- NOTE | 2025-05-27 10:43 | P.PNIM_ITS ---
Subjective Subjective Date of Service: 05/27/25 Interval History: f/u asthma exacerbation that required icu care, but no intubation Physical Exam 2 Vital Signs: Vital Signs: Last Vital Signs Temp 98.5 F 05/27/25 07:44 Pulse 69 05/27/25 07:46 Resp 16 05/27/25 07:46 BP 125/74 05/27/25 07:44 Pulse Ox 94 05/27/25 07:44 O2 Del Method Room Air 05/27/25 07:44 O2 Flow Rate 40 05/25/25 20:00 FiO2 40 05/26/25 09:00 BMI result Body Mass Index 30.8 Objective Data Active Medications Azithromycin (Azithromycin 250 Mg Tablet) 250 mg PO Q24H [facility] Last Admin: 05/27/25 09:10 Dose: 250 mg Documented By: DALILA Albuterol Sulfate 2.5 mg/ (Albuterol/Ipratropium 3 ml) 0 mg INHALE RQ4H WHILE AWAKE [facility] Last Admin: 05/27/25 07:43 Dose: 1 dose Documented By: TONA Enoxaparin Sodium (Enoxaparin Sodium 40 Mg/0.4 Ml Syringe) 40 mg SUBCUT Q24H [facility] Last Admin: 05/27/25 06:02 Dose: 40 mg Documented By: MUNIR Levalbuterol HCl (Levalbuterol Hcl 1.25 Mg/3 Ml Vial.Neb) 1.25 mg INHALE Q2H PRN PRN Reason: Dyspnea Last Admin: 05/27/25 05:37 Dose: 1.25 mg Documented By: MARY ANN Lorazepam (Lorazepam 0.5 Mg Tablet) 0.5 mg PO Q4H PRN PRN Reason: Anxiety Last Admin: 05/26/25 22:53 Dose: 0.5 mg Documented By: MUNIR Methylprednisolone Sodium Succinate (Methylprednisolone Sod Succ 125 Mg/2 Ml Vial) 60 mg IVPUSH DAILY [facility] Last Admin: 05/27/25 09:11 Dose: 60 mg Documented By: DALILA Morphine Sulfate (Morphine Sulfate 4 Mg/Ml Cartridge) 1 mg IVPUSH Q2H PRN; Protocol PRN Reason: work of breathing Sodium Chloride (0.9 % Sodium Chloride Flush 3 Ml Syringe) 3 ml IVFLUSH QSHIFT [facility] Last Admin: 05/26/25 21:48 Dose: 3 ml Documented By: MUNIR Labs 05/26/25 04:56 05/26/25 04:56 Assessment and Plan (1) Asthma: Status: Acute (2) Respiratory failure: Status: Acute Plan 35-year-old gentleman with underlying asthma admitted with asthma exacerbation briefly requiring BiPAP support, now titrated off, +rhinovirus Plan: Asthma exacerbation, trigered entero/rhino virus, briefly requiring BiPAP support, now titrated off, systemic glucocorticoids taper and nebulized bronchodilators. Would benefit from outpatient pulmonary follow-up. Change to Po prednisone, empiric Azithro Lovenox for dvt prophylaxis, reassess for dc later today Quality Stroke Does the patient have a stroke diagnosis?: No VTE Prior VTE?: No VTE Risk Level:: Medical - moderate - high VTE Device Contraindication: N/A - Device Ordered VTE Drug Contraindication: N/A - Med Ordered
[2025-05-27] MEDS: guaiFENesin LA 600 MG TAB.ER.12H PO (22:20)
[2025-05-28] VITALS (12 sets, daily range): BP systolic 116–134; BP diastolic 63–82; PULSE 64–109; RESP 16–24; TEMP 36.2–37.2; O2SAT 88–97; BMI 27.3
[2025-05-28] MEDS: guaiFENesin LA 600 MG TAB.ER.12H PO ×2 (06:01→21:23)
[2025-05-28] MEDS: Albuterol Sulfate 2.5 MG, Albuterol/Iprat 2.5/0.5MG 3 ML 3 ML INHALE ×4 (07:44→21:09)
[2025-05-28] MEDS: 0.9 % Sodium Chloride Flush 3 ML SYRINGE IVFLUSH ×2 (08:53→21:24)
--- NOTE | 2025-05-28 09:49 | P.CDIM_ITS ---
PROVIDER RESPONSE TEXT: To clarify, the appropriate diagnosis supported by the clinical indicators: Severe persistent QUERY TEXT: PHYSICIAN'S DOCUMENTATION REQUEST Date of Query: 05/27/2025 12:36 PM EST Patient Name: Michael Bo Admit Date: 05/25/2025 Dear Carlos Castaneda MD, A review of the medical record indicates additional documentation may be needed. Please review below and update the documentation accordingly. Clinical indicators: Progress notes within the written Plan: Asthma exacerbation, triggered entero/rhino virus. Briefly requiring BIPAP support, now titrated off. Systemic glucocorticoids taper and nebulized bronchodilators. Based on the above, please clarify in the Progress Notes any further specifics for the noted asthma exacerbation: Mild intermittent Mild persistent Moderate persistent Severe persistent Exercise induced Chronic obstructive asthma and indicate if with acute lower respiratory infection Asthma with underlying COPD and indicate if with acute lower respiratory infection Other (explain) Clinically unable to determine (explain) Thank you, Shannon Verdugo, CCS, CDIS Use of terms such as suspected, likely, concern for, or probable (associated with a specific diagnosis that is being evaluated, monitored, or treated as if it exists) are acceptable and can be coded in the inpatient setting, when documented at the time of discharge. Please use your independent medical judgment in providing your response. THIS QUERY IS PART OF THE PERMANENT MEDICAL RECORD
--- NOTE | 2025-05-28 10:31 | MHC.CM.PN ---
Patient is not yet medically cleared for dc (Asthma/still symptomatic); home is the goal and CM will continue to follow.
--- NOTE | 2025-05-28 10:50 | P.PNIM_ITS ---
Subjective Subjective Date of Service: 05/28/25 Interval History: f/u asthma exacerbation that required icu care, but no intubation still reporting sob and O2 has been down to 88 on room air and now on O2, he seems very anxious as well Physical Exam 2 Vital Signs: Vital Signs: Last Vital Signs Temp 97.6 F 05/28/25 08:00 Pulse 109 H 05/28/25 08:00 Resp 22 H 05/28/25 08:00 BP 130/82 05/28/25 08:00 Pulse Ox 88 L 05/28/25 08:00 O2 Del Method Room Air 05/28/25 08:00 O2 Flow Rate 40 05/25/25 20:00 FiO2 40 05/26/25 09:00 BMI result Body Mass Index 27.3 Const: Other: General: AO X 3, no acute distress Resp: diminsihed air movment tri, some wheeze and some res muscle fatigue CVS: S1,S2,RRR GI: +BS, NT, no distention Skin: No rash Neuro: motor grossly intact Psych: appropriate affect Objective Data Active Medications Azithromycin (Azithromycin 250 Mg Tablet) 250 mg PO Q24H [facility] Last Admin: 05/28/25 08:51 Dose: 250 mg Documented By: CASTILLO Albuterol Sulfate 2.5 mg/ (Albuterol/Ipratropium 3 ml) 0 mg INHALE RQ4H WHILE AWAKE [facility] Last Admin: 05/28/25 07:44 Dose: 1 dose Documented By: OJ Enoxaparin Sodium (Enoxaparin Sodium 40 Mg/0.4 Ml Syringe) 40 mg SUBCUT Q24H [facility] Last Admin: 05/28/25 08:50 Dose: 40 mg Documented By: CASTILLO Guaifenesin (Guaifenesin La 600 Mg Tab.Er.12h) 600 mg PO BID PRN PRN Reason: Cough Last Admin: 05/28/25 06:01 Dose: 600 mg Documented By: MUNIR Levalbuterol HCl (Levalbuterol Hcl 1.25 Mg/3 Ml Vial.Neb) 1.25 mg INHALE Q2H PRN PRN Reason: Dyspnea Last Admin: 05/28/25 05:16 Dose: 1.25 mg Documented By: JOEY Lorazepam (Lorazepam 0.5 Mg Tablet) 0.5 mg PO Q4H PRN PRN Reason: Anxiety Last Admin: 05/28/25 08:53 Dose: 0.5 mg Documented By: CASTILLO Morphine Sulfate (Morphine Sulfate 4 Mg/Ml Cartridge) 1 mg IVPUSH Q2H PRN; Protocol PRN Reason: work of breathing Prednisone (Prednisone 20 Mg Tablet) 40 mg PO DAILY [facility] Last Admin: 05/28/25 08:51 Dose: 40 mg Documented By: CASTILLO Sodium Chloride (0.9 % Sodium Chloride Flush 3 Ml Syringe) 3 ml IVFLUSH QSHIFT [facility] Last Admin: 05/28/25 08:53 Dose: 3 ml Documented By: CASTILLO Labs 05/26/25 04:56 05/26/25 04:56 Assessment and Plan (1) Asthma: Status: Acute (2) Respiratory failure: Status: Acute Plan 35-year-old gentleman with underlying asthma admitted with asthma exacerbation briefly requiring BiPAP support, now titrated off, +rhinovirus Plan: Severe persistent Asthma with acute exacerbation, trigered entero/rhino virus, briefly requiring BiPAP support, now titrated off, systemic glucocorticoids taper and nebulized bronchodilators. Would benefit from outpatient pulmonary follow-up. Continue prednisone, empiric Azithro and close monitoring, if not improving reconsult pulmonology. O2 as needed and aim for sat 94% or better Lovenox for dvt prophylaxis, reassess for dc later today Quality Stroke Does the patient have a stroke diagnosis?: No VTE Prior VTE?: No VTE Risk Level:: Medical - moderate - high VTE Device Contraindication: N/A - Device Ordered VTE Drug Contraindication: N/A - Med Ordered
[2025-05-29] VITALS (7 sets, daily range): BP systolic 123–133; BP diastolic 73–78; PULSE 76–105; RESP 18–20; TEMP 36.5–36.9; O2SAT 91–96; BMI 27.1
[2025-05-29] MEDS: Albuterol Sulfate 2.5 MG, Albuterol/Iprat 2.5/0.5MG 3 ML 3 ML INHALE ×3 (07:45→15:19)
[2025-05-29] MEDS: guaiFENesin LA 600 MG TAB.ER.12H PO (08:28)
[2025-05-29] MEDS: 0.9 % Sodium Chloride Flush 3 ML SYRINGE IVFLUSH (08:29)
[2025-05-29 11:20] LABS: ABG HCO3 23 mmol/L (22-26); ABG O2 % Saturation 95.0 %
--- NOTE | 2025-05-29 11:45 | P.PNIM_ITS ---
Subjective Subjective Date of Service: 05/29/25 Interval History: f/u asthma exacerbation that required icu care, but no intubation Still with sob and O2 sat around 93% on room air now Physical Exam 2 Vital Signs: Vital Signs: Last Vital Signs Temp 97.7 F 05/29/25 11:39 Pulse 94 05/29/25 11:39 Resp 20 05/29/25 11:39 BP 133/78 05/29/25 11:39 Pulse Ox 93 05/29/25 11:39 O2 Del Method Room Air 05/29/25 11:39 O2 Flow Rate 2 05/29/25 07:06 FiO2 40 05/26/25 09:00 BMI result Body Mass Index 27.1 Const: Other: General: AO X 3, no acute distress Resp: Better air movement, occasional wheeze CVS: S1,S2,RRR GI: +BS, NT, no distention Skin: No rash Neuro: motor grossly intact Psych: appropriate affect Objective Data Active Medications Azithromycin (Azithromycin 250 Mg Tablet) 250 mg PO Q24H [facility] Last Admin: 05/29/25 08:28 Dose: 250 mg Documented By: MUSA Albuterol Sulfate 2.5 mg/ (Albuterol/Ipratropium 3 ml) 0 mg INHALE RQ4H WHILE AWAKE [facility] Last Admin: 05/29/25 11:31 Dose: 1 dose Documented By: OJ Enoxaparin Sodium (Enoxaparin Sodium 40 Mg/0.4 Ml Syringe) 40 mg SUBCUT Q24H [facility] Last Admin: 05/29/25 08:28 Dose: 40 mg Documented By: MUSA Guaifenesin (Guaifenesin La 600 Mg Tab.Er.12h) 600 mg PO BID PRN PRN Reason: Cough Last Admin: 05/29/25 08:28 Dose: 600 mg Documented By: MUSA Levalbuterol HCl (Levalbuterol Hcl 1.25 Mg/3 Ml Vial.Neb) 1.25 mg INHALE Q2H PRN PRN Reason: Dyspnea Last Admin: 05/28/25 05:16 Dose: 1.25 mg Documented By: JOEY Lorazepam (Lorazepam 0.5 Mg Tablet) 0.5 mg PO Q4H PRN PRN Reason: Anxiety Last Admin: 05/28/25 21:23 Dose: 0.5 mg Documented By: ERICA Morphine Sulfate (Morphine Sulfate 4 Mg/Ml Cartridge) 1 mg IVPUSH Q2H PRN; Protocol PRN Reason: work of breathing Prednisone (Prednisone 20 Mg Tablet) 40 mg PO DAILY [facility] Last Admin: 05/29/25 08:28 Dose: 40 mg Documented By: MUSA Sodium Chloride (0.9 % Sodium Chloride Flush 3 Ml Syringe) 3 ml IVFLUSH QSHIFT [facility] Last Admin: 05/29/25 08:29 Dose: 3 ml Documented By: MUSA Labs 05/26/25 04:56 05/26/25 04:56 Labs: Laboratory Results - last 24 hr 05/29/25 11:17 O2 Saturation 95.0 ABG pH at Pt Temp 7.47 H ABG pCO2 at Pt Temp 31 L ABG pO2 at Pt Temp 70 L ABG HCO3 23 ABG Base Excess (Actual) 1.0 Assessment and Plan (1) Asthma: Status: Acute (2) Respiratory failure: Status: Acute Plan 35-year-old gentleman with underlying asthma admitted with asthma exacerbation briefly requiring BiPAP support, now titrated off, +rhinovirus Plan: Severe persistent Asthma with acute exacerbation, trigered entero/rhino virus, briefly requiring BiPAP support, now titrated off, now on Prednisone,and nebulized bronchodilators. Would benefit from outpatient pulmonary follow-up. Continue prednisone, empiric Azithro and close monitoring, reconsulting pulmonology. O2 as needed and aim for sat 94% or better Lovenox for dvt prophylaxis, reassess for dc later today Quality Stroke Does the patient have a stroke diagnosis?: No VTE Prior VTE?: No VTE Risk Level:: Medical - moderate - high VTE Device Contraindication: N/A - Device Ordered VTE Drug Contraindication: N/A - Med Ordered
--- NOTE | 2025-05-29 12:55 | PM.DS ---
DS: Providers Provider Date of Service: 05/29/25 Date of admission: 05/25/25 06:41 Date of discharge: 05/29/25 Primary care physician: NEWTON Cheng Consults: 05/29/25 11:04 Consult to Pulmonology Routine Consulting Provider: [facility] Reason for consultation: resp distress, asthma Has provider been notified: Yes DS: Diagnosis Discharge Diagnosis (1) Asthma: Status: Acute (2) Respiratory failure: Status: Acute DS: Summary Hospital Course Hospital Course: Hospital course: 35-year-old male admitted with acute asthma exacerbation, presenting with shortness of breath. He initially required BiPAP support in the ICU, which was discontinued the following day. Chest CT showed no evidence of pulmonary embolism but did reveal a small pneumomediastinum, likely related to BiPAP use during the asthma exacerbation. The patient was treated with intravenous steroids, nebulized bronchodilators, and empiric azithromycin, completing a 5-day course. Respiratory viral panel was positive for enterovirus/rhinovirus, likely the trigger for his asthma exacerbation. He has shown clinical improvement. Pulmonology evaluation recommended a steroid taper over 2 to 3 weeks and outpatient pulmonology follow-up. Final diagnosis: acute hypoxic respiratory failure severe persitent asthma with acute exacerbation Time Attestation Discharge Coordination Time (in mins): 35 Quality: Safe Use of Opioids Does Pt have an Active Cancer Diagnosis on the Problem List?: No Quality: Stroke Does the patient have a stroke diagnosis?: No Physical Exam Vital Signs: Vital Signs: Last Vital Signs Temp 97.7 F 05/29/25 11:39 Pulse 94 05/29/25 11:39 Resp 20 05/29/25 11:39 BP 133/78 05/29/25 11:39 Pulse Ox 93 05/29/25 11:39 O2 Del Method Room Air 05/29/25 11:39 O2 Flow Rate 2 05/29/25 07:06 FiO2 40 05/26/25 09:00 BMI result Body Mass Index 27.1 DS: Data Data Completed and Pending Labs on day of discharge: Laboratory Results - last 24 hr 05/29/25 11:17 O2 Saturation 95.0 ABG pH at Pt Temp 7.47 H ABG pCO2 at Pt Temp 31 L ABG pO2 at Pt Temp 70 L ABG HCO3 23 ABG Base Excess (Actual) 1.0 Discharge Plan Discharge Anticipated Discharge Date/Time: 05/29/25 13:06 Patient Disposition: Home, Self-Care Discharge Diagnosis: Acute respiratory failure due acute asthma exacerbation Referrals: Song Zhang PA [Primary Care Provider, Family Practice] - 1 Week Brennan Denis MD [Physician, Pulmonology] - 2 Weeks Referral Note: ashtma exacerbation Discharge Medications: New prednisone 10 mg tablet See Taper PO DIRECTED Qty: 40 0RF Taper: Prednisone 40 mg daily for 4 Days and 0 Hour 30 mg daily for 4 Days and 0 Hour 20 mg daily for 4 Days and 0 Hour 10 mg daily for 4 Days and 0 Hour Rx Instructions: see taper instructions Continued albuterol sulfate 90 mcg/actuation HFA aerosol inhaler 1 inh inhalation QID PRN (Reason: shortness of breath or wheezing) Qty: 6.7 0RF (DME) Aerochamber Plus Z Stat Spacer See Rx Instructions .Route Qty: 1 0RF Rx Instructions: As directed (DME) nebulizers Misc See Rx Instructions .Route Qty: 1 0RF Rx Instructions: As directed sertraline 100 mg tablet 100 mg PO DAILY Discharge Orders: Discharge Order (Routine); Ordered 05/29/25 Ordered By: Carlos Castaneda Diet: Advance to usual diet Activity on Discharge: As tolerated Stand Alone Forms: Patient Portal Discharge page Print Language: Portuguese Care Plan Goals: recovery from asthma exacerbation due to rhino/enterovirus Health Concerns: athma exacerbation Plan of Treatment: Us e inhalers as before Take prednisone as directed Follow up with your primary care doctor and lung Dr. (Dr. Denis) Assessment: See above Discharge Date/Time: 05/29/25 18:17
--- NOTE | 2025-05-29 13:11 | P.PNPL_ITS ---
Subjective Subjective Date of Service: 05/29/25 Interval history: Asthma exacerbation improved almost to baseline. Objective Data Labs 05/26/25 04:56 05/26/25 04:56 Labs: Laboratory Results - last 24 hr 05/29/25 11:17 O2 Saturation 95.0 ABG pH at Pt Temp 7.47 H ABG pCO2 at Pt Temp 31 L ABG pO2 at Pt Temp 70 L ABG HCO3 23 ABG Base Excess (Actual) 1.0 Physical Exam 2 Vital Signs: Vital Signs: Last Vital Signs Temp 97.7 F 05/29/25 11:39 Pulse 94 05/29/25 11:39 Resp 20 05/29/25 11:39 BP 133/78 05/29/25 11:39 Pulse Ox 93 05/29/25 11:39 O2 Del Method Room Air 05/29/25 11:39 O2 Flow Rate 2 05/29/25 07:06 FiO2 40 05/26/25 09:00 BMI result Body Mass Index 27.1 Const: General: no acute distress, alert and awake Eyes: Sclerae: sclerae normal EOM: EOMs intact bilaterally Neck: Neck: Yes no lymphadenopathy, Yes trachea midline and Yes supple Resp: Effort & Inspection: normal respiratory effort and no respiratory distress Auscultation: clear to auscultation bilaterally Cardio: Rate: regular rate Rhythm: regular rhythm Heart sounds: no gallops, no murmurs and no rubs GI: Palpation (GI): Soft to palpation and Other GI palpation findings present ( Nontender) Auscultation: normal bowel sounds Extrem: General: Yes no pedal edema, No clubbing and No cyanosis Procedures Date of Service Date of Service: 05/29/25 Assessment and Plan Assessment and plan (1) Asthma: Status: Acute Plan Impression: 35-year-old gentleman admitted with acute asthma exacerbation initially requiring BiPAP support, now titrated off. CT angio chest with no evidence of pulmonary emboli, incidentally noted small amount of pneumomediastinum likely related to utilization of BiPAP support during asthma exacerbation. Symptomatically significantly improved and appears to be close to baseline. Recommendations: Agree with current therapeutic regimen losing nebulized bronchodilators and systemic glucocorticoids. Will require prolonged glucocorticoid taper over the next 2-3 weeks. Time Spent With Patient Time: Total time managing care of this patient today ____ minutes. Progress Note: Quality Stroke Does the patient have a stroke diagnosis?: No
[2025-05-29 14:53] LABS: ABG Refer to POC result
== END 2025-05-29 18:17 | disposition home or self-care (01) | DRG 141 ==
LOC: HO.ED 05:12 → HO.EDOVER 06:47 → HO.ICU 07:16 → HO.IMC 05-26 15:52
PROVIDERS: Internal Medicine Pulmonary Disease; Nurse Practitioner Family; Admitting Provider Internal Medicine Critical Care Medicine; Emergency Provider Student in an Organized Health Care Education/Training Program; PCP Physician Assistant Medical; Visit Provider Internal Medicine
DX: J45.51 Severe persistent asthma with (acute) exacerbation (principal); J96.01 Acute respiratory failure with hypoxia; B97.89 Other viral agents as the cause of diseases classified elsewhere; B97.10 Unspecified enterovirus as the cause of diseases classified elsewhere; Z20.822 Contact with and (suspected) exposure to COVID-19; Z87.891 Personal history of nicotine dependence; Z79.899 Other long term (current) drug therapy
CPT/HCPCS: 36415; 71045; 71275; 80048; 82040; 82803; 82947; 83735; 84100; 85025; 85379; 87502; 87633; 87635; 93005; 94640; 94660; 94664; 94799; 99285; J0165; J0456; J1650; J2270; J2919; J3475; Q9967

== ENCOUNTER → 2025-05-25 04:19 | Outpatient (BNV) | payer OTHER, SELFPAY | PROVIDERS: Emergency Provider Student in an Organized Health Care Education/Training Program; PCP Physician Assistant Medical; Visit Provider Radiology Vascular & Interventional Radiology | DX: R06.02 Shortness of breath (principal) | CPT/HCPCS: 71045 ==

== ENCOUNTER → 2025-05-25 04:20 | Outpatient (BNV) | payer OTHER, SELFPAY | PROVIDERS: Admitting Provider Internal Medicine Critical Care Medicine; Emergency Provider Student in an Organized Health Care Education/Training Program; PCP Physician Assistant Medical; Visit Provider Internal Medicine | DX: R00.0 Tachycardia, unspecified (principal); I51.7 Cardiomegaly | CPT/HCPCS: 93010 ==

== ENCOUNTER 2025-05-25 06:41 | Outpatient (BNV) | payer OTHER, SELFPAY | END 2025-05-26 08:00 | PROVIDERS: Admitting Provider Internal Medicine Critical Care Medicine; Emergency Provider Student in an Organized Health Care Education/Training Program; PCP Physician Assistant Medical; Visit Provider Radiology Diagnostic Radiology | DX: R06.00 Dyspnea, unspecified (principal); K44.9 Diaphragmatic hernia without obstruction or gangrene | CPT/HCPCS: 71275 ==

== ENCOUNTER → 2025-05-25 06:41 | Outpatient (BNV) | payer OTHER, SELFPAY | PROVIDERS: Admitting Provider Internal Medicine Critical Care Medicine; Emergency Provider Student in an Organized Health Care Education/Training Program; PCP Physician Assistant Medical; Visit Provider Internal Medicine Critical Care Medicine | DX: J96.01 Acute respiratory failure with hypoxia (principal); J45.901 Unspecified asthma with (acute) exacerbation | CPT/HCPCS: 99222 ==

== ENCOUNTER → 2025-05-25 06:41 | Outpatient (BNV) | payer OTHER, SELFPAY | PROVIDERS: Admitting Provider Internal Medicine Critical Care Medicine; Emergency Provider Student in an Organized Health Care Education/Training Program; PCP Physician Assistant Medical; Visit Provider Internal Medicine | DX: J45.901 Unspecified asthma with (acute) exacerbation (principal); J96.01 Acute respiratory failure with hypoxia | CPT/HCPCS: 99232 ==

== ENCOUNTER → 2025-05-25 06:41 | Outpatient (BNV) | payer OTHER, SELFPAY | PROVIDERS: Admitting Provider Internal Medicine Critical Care Medicine; Emergency Provider Student in an Organized Health Care Education/Training Program; PCP Physician Assistant Medical; Visit Provider Internal Medicine Pulmonary Disease | DX: J45.901 Unspecified asthma with (acute) exacerbation (principal) | CPT/HCPCS: 99232 ==

== ENCOUNTER 2025-06-17 10:26 | Outpatient (AMB) | payer OTHER, SELFPAY ==
--- NOTE | 2025-06-17 10:32 | MHC.OFFVIS ---
Vital Signs 06/17/25 10:33 Height 6 ft Weight 168 lb BMI 22.8 BP 102/70 Blood Pressure Location Lt brachial Position Sitting Pulse 76 Pulse Source Pulse Oximeter Pulse Oximetry (%) 98 Oxygen Delivery Method Room Air Intake Visit Reasons: Asthma Exacerbation Allergies cefaclor (From Ceclor) Allergy (Verified 06/17/25 10:35) Rash levofloxacin (From Levaquin) Allergy (Verified 06/17/25 10:35) Anaphylaxis loratadine (From Claritin) Allergy (Verified 06/17/25 10:35) Anaphylaxis fluticasone (From Advair Diskus) Adverse Reaction (Severe, Verified 06/17/25 10:36) rash salmeterol (From Advair Diskus) Adverse Reaction (Severe, Verified 06/17/25 10:36) rash HPI HPI Asthma Exacerbation: Details: 35-year-old gentleman with underlying history of asthma requiring prior hospitalizations, but never intubations, presents to [facility] care. Patient currently is using albuterol MDI on essentially daily basis with reasonable control of his symptoms. He does complain of environmental allergies. Patient does have family history of asthma in his mother. He denies exposure to industrial dusts. FOR[facility]LY [facility], [facility] Medical History (Updated 06/17/25 @ 11:28 by Brennan Denis MD) Asthma Tachycardia Family History Mother TIA (transient ischemic attack) PFO (patent foramen ovale) Atrial septal aneurysm Social History Household Members: Spouse Housing: House Do you presently have visiting nurse or other home services: No Alcohol intake: current Alcohol intake frequency: holidays/special occasions only Patient Tobacco Use Status: Former Tobacco user Tobacco use type: Smokeless Tobacco Substance Use Type: Marijuana service: No Review of Systems Card Denies dyspnea Resp Denies cough, Denies excessive phlegm production, Denies dyspnea and Denies wheezing Aller/Immun Denies wheezing Physical Exam Vital Signs: Last Vital Signs Pulse 76 06/17/25 10:33 BP 102/70 06/17/25 10:33 Pulse Ox 98 06/17/25 10:33 Oxygen Delivery Method Room Air 06/17/25 10:33 BMI result Body Mass Index 22.8 Const General: no acute distress and alert Nutritional Appearance: not obese Orientation/consciousness: Other orientation findings ( oriented) HEENT Head: Yes atraumatic Eyes General: appearance normal, both eyes and all related structures Sclerae: sclerae normal EOM: EOMs intact bilaterally Neck Neck: Yes supple Lymphatic: no lymphadenopathy noted Resp Effort & Inspection: normal respiratory effort and no use of accessory muscles Auscultation: clear to auscultation bilaterally Cardio Rate: regular rate Rhythm: regular rhythm Heart sounds: no gallops, no murmurs and no rubs Skin General skin exam: other ( warm) Extrem General: No clubbing, No cyanosis and No edema Assessment & Plan Assessment & Plan (1) Asthma: Code(s): J45.909 - Unspecified asthma, uncomplicated Category: Medical Plan: Asthma of unclear severity. Will obtain full PFT. Will start on empiric Breo, will continue on albuterol MDI. (2) Respiratory failure: Code(s): J96.90 - Respiratory failure, unspecified, unspecified whether with hypoxia or hypercapnia Category: Medical Qualifiers: Chronicity: acute Respiratory failure complication: hypoxia Qualified Code(s): J96.01 - Acute respiratory failure with hypoxia Plan: Will obtain IgE level, CBC with differential, and RAST panel for further evaluation. Orders: Orders Complete Blood Count Auto Diff Today Z91.09 - Other allergy status, other than to drugs and biological substances Resp Allergy Profile Region I Today Z91.09 - Other allergy status, other than to drugs and biological substances PFT pulmonary function test Today J96.01 - Acute respiratory failure with hypoxia Medications: New fluticasone furoate-vilanterol 200-25 mcg/dose (Breo Ellipta) 1 inh inhalation DAILY 1 ea 6RF J96.01 - Acute respiratory failure with hypoxia Coding Level of Care Code New Pt Level 4 (84095) Diagnoses Asthma J45.909 Respiratory failure J96.01 Chronicity: acute Respiratory failure complication: hypoxia
[2025-06-17 10:33] VITALS: BP 102/70; PULSE 76; O2SAT 98; BMI 22.8
== END 2025-06-17 10:54 | disposition home or self-care (01) ==
LOC: HO.HPS 10:27
PROVIDERS: PCP Physician Assistant Medical; Visit Provider Internal Medicine Pulmonary Disease
DX: J45.909 Unspecified asthma, uncomplicated (principal); J96.01 Acute respiratory failure with hypoxia
CPT/HCPCS: 99214

== ENCOUNTER 2025-07-11 07:12 | Outpatient (REF) | payer OTHER, SELFPAY ==
--- OUTSIDE RECORDS SUMMARY | 2025-07-11 07:14 | XMS_ITS | Data Portability ---
Author Organization [facility], [id number] Address [address] [place] [address] Assessment No assessment recorded. Plan of Treatment [...] rate Body temperature Heart rate Oxygen saturation Systolic And Diastolic Provider Name and Address Organization Details Last Updated DateTime 3 182.88 cm 25.1 kg/m2 10001.5 9 g 22 /min 100.4 [degF] 122 /min 96 % 134/94 mm[Hg] [facility] 3 09:43:31 Social History None recorded. Functional Status None recorded. Mental Status None recorded. Family History Nothing Reported. Medical History No medical history recorded. Past Encounters Encounter ID Performer Location Encounter Start Date Encounter Closed Date Diagnosis/Indication Diagnosis SNOMED-CT Code Diagnosis ICD10 Code Diagnosis IMO Codes Diagnosis Note [id number] [address] [address] [place] [id number] 07/26/2019 16:04:04 07/26/2019 17:03:43 [id number] [address] [address] [place] [id number] 07/23/2017 08:15:11 07/23/2017 08:55:14 [id number] [address] [place] [address] 06/30/2021 10:30:16 06/30/2021 11:25:07 [id number] [address] [place] [address] 03/12/2015 19:38:16 03/12/2015 20:43:43 [id number] [address] [facility] [address] [place] [address] 11/07/2021 11:26:46 11/07/2021 12:52:19 [id number] Damion Granda [employer] [address] [place] [address] 01/05/2023 09:37:35 01/05/2023 10:01:51 Left without being seen [id number] Z53.21 Health Concerns Section Related Observation LastModified by Organization Detai ls LastModified Time None Recorded Concern Status LastModified by Organization Details LastModified Time None Recorded Advance Directives Directive None Recorded Payers Insurance Date Sequence Insurance Name Policy Number Policy Andres Covered Member ID Andres Member ID Guarantor Name 01/05/2023 1 [facility] [id number] Michael Bo [id number] Michael Bo
--- OUTSIDE RECORDS SUMMARY | 2025-07-11 07:15 | XMS_ITS | Continuity of Care Document ---
Author Organization [facility] Address [address] [place] [address] Care Team Providers Care Deputy Bailiff Name Role Phone JUANITA SONG Primary Care Provider [phone] JOSE LUIS TAYLOR Referring Provider [phone] Assessment Encounter Date Assessment Date Assessment LastModified by Organization Details LastModified Time 07/08/2025 07/08/2025 This service was provided using telemedicine ([facility]). The patient consented and was seen through synchronous audio and video technology. If audio only connection was used, the provider used telephone communication. Patient was located at home in the [facility]. Provider was located in the office. No other persons participated in the telemedicine visit except for the patient unless otherwise indicated here. Total time of visit was 23 minutes. [email or web address] Not available 07/08/2025 14:04:01 Plan of Treatment Reminders Order Date Submit Date Provider Last Modified By Organization Details Last Modified Time Details Appointments None recorded. Lab None recorded. Referral None recorded. Procedures None recorded. Surgeries None recorded. Imaging None recorded. Medication Orders escitalopra m 10 mg tablet 2024 025 [facility][id number], [address] [place], [address], 14:02:21 Patient TargetsNo targets recorded. Patient Instructions Encounter Date Encounter Id Patient Instructions Last Modified By Organization Details Last Modified Time 07/08/2025 [id number] Medications (OTC , herbal therapies, supplements) reviewed and reconciled with patient and or caregiver, including potential side effects, drug interactions, instructions, and the consequences of not taking medication. Reviewed potential barriers to medication adherence, such as side effects from medication or cost of medication. [email or web address] Not available 07/08/2025 14:02:31 Reason for Referral None Reported. Problems Name Problem SNOMED Code Status Onset Date Resolution Date Notes Provider Name and Address Organization Details Recorded Time Asthma 206597444 Completed 201611/23/2022 Song Zhang PA-C [address] [facility] [address], [place], [address], [facility] [place] [facility] 11:39:45 Attention deficit hyperacti vity disorder, predomina ntly inattenti ve type 98121166 Completed 201911/23/2022 Song Zhang PA-C [address] [facility] [address], [place], [address], [facility] [place] [facility] 11:38:48 Chronic urticaria 24036448 Completed 201906/19/2024 Song Zhang PA-C [address] [facility] [address], [place], [address], [facility] [place] [facility] 15:00:02 Mild major depressio n, single episode 91638093 Completed 202111/23/2022 Song Zhang PA-C [address] [facility] [address], [place], [address], [facility] [place] [facility] 11:38:51 Situation al panic attack 779046936 Completed 202111/23/2022 Song Zhang PA-C [address] [facility] [address], [place], [address], [facility] [place] [facility] 11:38:59 Anxiety 45178767 Completed 202111/23/2022 Song Zhang PA-C [address] [facility] [address], [place], [address], [facility] [place] 3 09:59:13 Mild persisten t asthma 431777979 Active 2022 Song Zhang PA-C [address], [place], [address], [facility] [place] [facility] 11:39:37 Allergic conjuncti vitis of bilateral eyes 986042244513 102 Completed 202206/19/2024 Song Zhang PA-C [address], [place], [address], [facility] [place] [facility] 15:00:07 Anxiety 27985970 Active 2022 Song Zhang PA-C [address], [place], [address], [facility] [place] 3 09:59:13 Panic attack 194402503 Active 2022 Song Zhang PA-C [address], [place], [address], [facility] [place] [facility] 14:58:18 Testicula r microlith iasis 578307694215 108 Active 2023 Angelika Edmond MD [address], [place], [address], [facility] [place] 4 13:51:16 Tinnitus of right ear 799555479231 8 Active 2023 Song Zhang PA-C [address], [place], [address], [facility] [place] 4 15:01:07 Vitamin D deficienc y 86840929 Active 2024 Song Zhang PA-C [address], [place], [address], [facility] [place] [facility] 16:08:58 Problem Notes None recorded. Procedures Surgical History Date Name Laterality Status Provider Name and Address Organization Details Recorded Time 05/26/[address] angiography of chest with contrast completed Lisa Carballo [facility] 06/03/2025 13:30:01 07/24/19 00 Appendectomy completed Araseli Fontenot [facility] 04/06/2020 14:04:19 Imaging Results None recorded. Procedure Notes None recorded. Medical Equipment None Reported. Allergies Allergen ID Allergen Name Allergen Category Reaction Reaction Severity Criticality Documentation Date Start Date Code Code System Note Provider Name and Address Organization Details Recorded Time 00214 Ceclor CD medicatio n hives severe Not available 09/13/2016 86065 1 RxNorm Vanesa JAMES Connors, [facility] 7 12:58:16 24597 Levaquin medicatio n vasculiti s severe Not available 09/13/201612116 2 RxNorm Vanesa JAMES Connors, [facility] 7 12:58:16 94440 fluticaso ne / salmetero l medicatio n rash severe Not available 09/13/2016 04567 5 RxNorm no probl ems c using proai r Song Zhang PA-C [address] [facility] [address], [place], [phone] [place] [address] 8 14:40:06 53938 Claritin medicatio n other severe Not available 09/13/201663215 6 RxNorm Vanesa JAMES Connors, [facility] 7 12:58:16 23092 cefaclor medicatio n rash Not available Not available 07/02/20252024 2176 RxNorm Not Available [email or web address] - prod 14:11:55 27129 levofloxa dot medicatio n anaphylax is Not available Not available 07/02/20252024 86285 RxNorm Not Available [employer] - prod 14:11:55 77669 loratadin e medicatio n anaphylax is Not available Not available 07/02/20252024 52364 RxNorm Not Available [employer] - prod 14:11:55 Medications Name Sig Start Date Stop Date Status Note LastModified by Organization Details LastModified Time multivitami n tablet Take 1 tablet every day by oral route. 01/20 /2022 completed Not Available Not Available Not Available terbinafine HCl 1 % topical cream APPLY TO AFFECTED AREA TWICE A DAY FOR 14 DAYS 04/20 completed Not Available Not Available Not Available prednisone 10 mg tablet PLEASE SEE ATTACHED FOR DETAILED DIRECTION S 06/23 completed Not Available Not Available Not Available doxycycline hyclate 100 mg capsule TAKE 1 CAP ORALLY 2 TIMES A DAY 01/12 completed Not Available Not Available Not Available albuterol sulfate 2.5 mg/3 mL (0.083 %) solution for nebulizatio n INHALE 3 ML BY NEBULIZAT ION ROUTE EVERY 6 HOURS NEEDED 06/19 completed Not Available Not Available Not Available cetirizine 10 mg tablet TAKE 1 TABLET BY MOUTH EVERY DAY 12/24 completed Not Available Not Available Not Available azithromyci n 250 mg tablet 07/18 completed Not Available Not Available Not Available valacyclovi r 1 gram tablet TAKE 1 TABLET BY MOUTH EVERY 12 HOURS FOR 5 DAYS 04/20 completed Not Available Not Available Not Available prednisone 20 mg tablet TAKE 3 TABLETS BY MOUTH ONCE DAILY X3 DAYS THEN 2 TABS X3 DAYS THEN 1 TAB X3 DAYS 04/20 completed Not Available Not Available Not Available sertraline 100 mg tablet TAKE 1 TABLET BY MOUTH EVERY DAY FOR 90 DAYS 06/23 completed Not Available Not Available Not Available lorazepam 0.5 mg tablet Take 1 tablet twice a day by oral route as needed for 30 days. 07/08 completed Not Available Not Available Not Available benzonatate 100 mg capsule Take 1 capsule 3 times a day by oral route as needed for 10 days. 04/20 completed Not Available Not Available Not Available oseltamivir 75 mg capsule Take 1 capsule twice a day by oral route for 5 days. 11/04 completed Not Available Not Available Not Available prednisone 50 mg tablet TAKE 1 TAB ORALLY DAILY FOR 5 DAYS 01/12 completed Not Available Not Available Not Available montelukast 10 mg tablet TAKE 1 TABLET BY MOUTH EVERY DAY DIRECTED 12/24 completed Not Available Not Available Not Available hydroxyzine HCl 25 mg tablet Take 1 tablet by oral route for 10 days. 11/23 completed Not Available Not Available Not Available mupirocin 2 % topical ointment APPLY A SMALL AMOUNT OF OINTMENT TO THE AFFECTED AREA TOPICALLY THREE TIMES A DAY FOR 1-2 WEEKS active Not Available Not Available No t Available lorazepam 1 mg tablet TAKE 1/2 TABLET BY MOUTH TWICE A DAY NEEDED FOR 10 DAYS active Not Available Not Available No t Available ibuprofen 600 mg tablet TAKE 1 TABLET EVERY 6 HOURS BY ORAL ROUTE NEEDED FOR 5 DAYS, FOR PAIN. 06/19 completed Not Available Not Available Not Available methylpredn isolone 4 mg tablets in a dose pack 08/19 completed Not Available Not Available Not Available albuterol sulfate HFA 90 mcg/actuati on aerosol inhaler INHALE 2 PUFFS BY MOUTH EVERY 4 HOURS NEEDED active Not Available Not Available No t Available sertraline 50 mg tablet TAKE 1 TABLET BY MOUTH EVERY DAY 06/23 completed Not Available Not Available Not Available doxycycline hyclate 100 mg tablet Take 1 tablet twice a day by oral route for 10 days. 08/19 completed Not Available Not Available Not Available dicyclomine 10 mg capsule TAKE 1 CAPSULE BY MOUTH TWICE A DAY FOR 15 DAYS 01/13 completed Not Available Not Available Not Available amoxicillin 875 mg-potassiu m clavulanate 125 mg tablet TAKE 1 TAB ORALLY 2 TIMES A DAY FOR 7 DAYS PATIENT ALREADY RECEIVED 1ST DOSE ON 01/05/2023 . 01/12 completed Not Available Not Available Not Available escitalopra m 10 mg tablet Take 1 tablet every day by oral route for 30 days. 2024 active Not Available Not Available Not Avai lable Flovent HFA 110 mcg/actuati on aerosol inhaler TAKE 2 PUFFS BY MOUTH TWICE A DAY 06/19 completed Not Available Not Available Not Available levalbutero l HFA 45 mcg/actuati on aerosol inhaler active Not Available Not Available Not Available EpiPen 0.3 mg/0.3 mL injection, auto-inject or Take 1 auto as needed by injection route as directed. 05/28 completed Not Available Not Available Not Available Vitamin C qd active Not Available Not Angelica ilable Not Available Sudafed Take 1 every 8 hrs 08/19 completed Not Available Not Available Not Available Vitamin D3 ? 1000 or 2000 qd active Not Available Not Available No t Available multivitami n qd active Not Available Not Available Not Available cholecalcif bushra (vitamin D3) 1,250 mcg (50,000 unit) capsule TAKE 1 CAPSULE BY MOUTH EVERY WEEK FOR 56 DAYS 03/19 completed Not Available Not Available Not Available Mucinex 1,200 mg tablet, extended release Take 1 tablet every 6-8 hours by oral route in the morning for 30 days. 08/19 completed Not Available Not Available Not Available Aerochamber Plus Flow-Vu,Med ium Mask USE DIRECTED 06/19 completed Not Available Not Available Not Available Breo Ellipta 200 mcg-25 mcg/dose powder for inhalation INHALE 1 PUFF DAILY active Not Available Not Available No t Available magnesium 200 mg (as magnesium oxide) chewable tablet Take by oral route. active qd Not Available Not Available No t Available Paxlovid 300 mg (150 mg x 2)-100 mg tablets in a dose pack TAKE 3 TABLETS BY MOUTH DIRECTED ON DOSE PACK (TWICE DAILY) FOR 5 DAYS 04/20 completed Not Available Not Available Not Available Vitals Date Recorded Body height Provider Name an d Address Organization Details Last Updated DateTime 07/08/2025 181.61 cm Mitali Ocampo MA MA [facility] 07/08/2025 13:13:54 Social History Question Answer Notes LastModified by Organizat ion Details LastModified Time Tobacco Smoking Status Never Smoker JAMES Hawthorne MA [facility] 09/13/2016 12:58:17 Do You Have An Advance Directive? Yes HCP [email or web address] Information not available 01/13/2022 Is Blood Transfusion Acceptable In An Emergency? Yes Information not available 09/13/2016 What Is Your Level Of Caffeine Consumption? Moderate [email or web address] Information not available 04/06/2020 How Much Tobacco Do You Chew? None [email or web address] Information not available 04/06/2020 In The 14 Days Before Symptom Onset, Have You Had Close Contact With A [facility] While That Case Was Ill? No [email or web address] Information not available 01/13/2022 In The 14 Days Before Symptom Onset, Have You Had Close Contact With A Person Who Is Under Investigation For COVID-19 While That Person Was Ill? No [email or web address] Information not available 01/13/2022 Have You Been To An Area Known To Be High Risk For COVID-19? No [email or web address] Information not available 01/13/2022 What Type Of Diet Are You Following? REGULAR Information not available 09/13/2016 Which Illicit Or Recreational Drugs Have You Used? None Marijuana Occ Information not available 11/23/2022 Live Alone Or With Others? With Others Information not available 11/23/2022 Do You Take Precautions To Prevent Distracted Driving? Yes Information not available 09/13/2016 How Often Do You Need To Have Someone Help You When You Read Instructions, Pamphlets, Or Other Written Material From Your Doctor Or Pharmacy? Never Information not available 09/13/2016 Have You Served In The ? No Information not available 09/13/2016 Have You Or Anyone In Your Household Had Any Of The Following Symptoms In The Last 14 Days: Sore Throat, Cough, Chills, Body Aches For Unknown Reasons, Shortness Of Breath For Unknown Reasons, Loss Of Smell, Loss Of Taste, Fever At Or Greater Than 100 Degrees Fahrenheit? No Information not available 02/11/2020 Are You Or Anyone In Your Household A Health Care Provider Or Emergency Responder? No Information not available 02/11/2020 To The Best Of Your Knowledge Have You Been In Close Proximity To Any Individual Who Tested Positive For COVID-19? No Information not available 02/11/2020 What Was The Date Of Your Most Recent Tobacco Screening? 06/23/2025 [email or web address] Information not available 06/23/2025 How Many Children Do You Have? 0 Information not available 12/24/2021 Do You Use Protection During Sex? No Information not available 04/06/2020 Do You Use Your Seat Belt Or Car Seat Routinely? Yes [email or web address] Information not available 12/24/2021 Seat Belts Used Routinely Yes [email or web address] Information not available 01/13/2022 Are You Sexually Active? Yes Information not available 09/13/2016 Smoke Alarm In Home Yes [email or web address] Information not available 01/13/2022 Do You Have Smoke And Carbon Monoxide Detectors In Your Home? Yes [email or web address] Information not available 12/24/2021 At What Age Did You Start Smoking Tobacco? 0 Information not available 09/13/2016 Are You Passively Exposed To Smoke? No Information not available 09/13/2016 How Much Tobacco Do You Smoke? No Information not available 05/28/2020 Do You Use Sunscreen Routinely? Yes Information not available 09/13/2016 How Many Years Have You Smoked Tobacco? 0 Information not available 06/23/2020 Sex: Unknown Functional Status Question Answer Note LastModified by Organizat ion Details LastModified Time Do you use any illicit or recreational drugs? Yes Information not available 06/19/2024 What is your level of alcohol consumption? Occasional Information not available 09/13/2016 Do you or have you ever used smokeless tobacco? Former smokeless tobacco user Information not available 05/28/2020 Are you currently employed? Yes Information not available 09/13/2016 Are you able to walk independently without assistance or assistive devices? YESWOREST [email or web address] Information not available 01/13/2022 Are you able to care for yourself independently? Yes Information not available 09/13/2016 What is your occupation? Other [email or web address] Information not available 12/27/2024 Do you or have you ever used e-cigarettes or vape? Never used electronic cigarettes [email or web address] Information not available 01/13/2022 What is your exercise level? None Information not available 06/19/2024 Mental Status None recorded. Family History Relationship Description Onset Age of this Age Resolved Age Notes LastModified by Organization Details LastModified Time Mother Asthma [email or web address] Not available 09/13/2016 12:58:16 Mother Anxiety disorder [email or web address] Not available 12/24 14:38:18 Notes:no fh CRC, ? if dad roblero d P Ca Medical History Condition Response Other N Gout N Kidney Stones N Blood Diseases N Hyperthyroidism N Breast Cancer N Depression N COPD N Lung Disease N Hypothyroidism N Defects or Inherited Disease N Anesthesia Complications N Headaches/Migraines Y Varicose Veins N Anxiety Disorder N Obesity N Vision or Eye Problems N Arthritis N Head Injury/Concussion Y Polyps N Infertility N Congenital Anomalies N Acid Reflux (GERD) N Cancer N Stroke N ADHD Y Endometriosis N High Cholesterol N Liver Disease N Fibromyalgia N Kidney Disease N Heart Problems N Ear or Hearing Problems N Hospitalizations N Thyroid Problems N GI Problems N Acne N Eating Disorder N Skin Problems N Anemia N Constipation N Bladder Problems N Mental Illness N Ovarian Cancer N Diabetes N Blood Transfusions N Seizures/Epilepsy N Tuberculosis N AIDS/HIV N Congestive Heart Failure (CHF) N Eczema N Diverticulitis N Abuse/Domestic Violence N Asthma Y Allergies Y Reflux/GERD N Hepatitis N Pulmonary Embolism N Hypertension N Chicken Pox N Autism Spectrum Disorder (ASD) N Osteoporosis N Immunizations Vaccine Type Date Status Note Provider Name and Address Organization Details Recorded Time COVID-19, mRNA, LNP-S, PF, 30 mcg/0.3 mL dose 10/16/19 21 completed Not Available [facility] 09/14/2022 19:23:47 COVID-19, mRNA, LNP-S, PF, 30 mcg/0.3 mL dose 11/07/19 21 completed Not Available [facility] 09/14/2022 19:23:47 COVID-19, mRNA, LNP-S, PF, 30 mcg/0.3 mL dose 05/14/20 21 completed Not Available [facility] 09/14/2022 19:23:47 COVID-19, mRNA, LNP-S, bivalent, PF, 30 mcg/0.3 mL dose 05/27/20 22 completed JAMES Olivarez [facility] 11/23/2022 10:38:03 Influenza, split virus, quadrivalent, PF 07/15/20 22 completed [facility] 11/23/2022 10:38:03 COVID-19, mRNA, LNP-S, PF, ally-sucrose, 30 mcg/0.3 mL 04/23/20 24 completed JAMES Olivarez [facility] 06/19/2024 14:27:46 Influenza, split virus, trivalent, PF 05/17/20 24 completed JAMES Olivarez, [facility] 06/19/2024 14:27:46 Influenza, split virus, quadrivalent, PF 04/06/20 20 completed Araseli lyn, [facility] 04/06/2020 14:19:35 Td (adult), 2 Lf tetanus toxoid, preservative free, adsorbed 04/06/20 20 cancelled patient objection Snog Zhang PA-C [address] [facility] [address], [place], [address], [facility] 04/06/2020 14:58:30 Influenza, split virus, quadrivalent, PF 06/30/20 21 completed JAMES Michael, [facility] 06/30/2021 14:58:21 Tdap 06/30/20 21 completed JAMES Michael, [facility] 06/30/2021 14:58:21 Past Encounters Encounter ID Performer Location Encounter Start Date Encounter Closed Date Diagnosis/Indication Diagnosis SNOMED-CT Code Diagnosis ICD10 Code Diagnosis IMO Codes Diagnosis Note [id number] Kulwinder Darling MD Main Office [address] [facility] [address] [place] [address] 06/23/2025 10:51:22 06/23/2025 12:07:01 Adult health examination 292531749 Z00.00 Influenza vaccination declined 914980971 Z28.21 10045862 Mild persi stent asthma 872121466 J45.30 stable - cont meds/inhal ers as dir 07.17 - was at ER recently - seen by pulm - better on breo x 1 wk, pending pft on 07.11.25no need for prn alb latelydepe nding on RAST testing, may consider montelukas t in future Hyperlipidemia 86989603 E78.49 4689117 rec low carb diet to lower trigs, and decrease your red meat & cheese intake to lower your LDL (bad chol) Fatigue 14097139 R53.83 1383940 Abrasion a nd/or friction burn of skin 989696708 T14.8XXA 885854 tip of penis x past week - from copper wire of partner's iud that loosened / changed position- slowly getting better, but not resolved c triple abx - change to mupirocin Panic attack 831927117 F 39.0 no help c prn hydroxyzin e last year, his dad rec prn ativan - reviewed risks/bene fits, pt aware of addictive potential, will only take prn panic attack 3.25 - pt requested refill - rarely uses 12.25 - pt has used prn 1mg lately - just refilled recently - feeling better, but would still like to have just in case Anxiety 18257048 F41.9 increased d/t health issues above - encouraged pt to cont to f/u c therapist, and will check griselda/phq next wk 6.28.23 - increased anxiety lately, moderate on griselda - his dad is a clinical psychologi st - he rec consider zoloft == rec in future if clinically worse (pt declines zoloft today), strongly encouraged pt to call [address] [place] [address] to see a therapist - handout provided, see below 11.24 - stable/no panic attack lately, infrequent use of prn benzo 1.25 - cont f/u c therapist q o week, cont f/u c marriage counsellor wklyinfreq uent use of prn benzosee below 3.25 - pt tolerating sertraline 25mg - scored lower on griselda/phq, but doesn't feel 'good' == rec increase to 50mg qd 8.25 - pt took extra lorazepam recently d/t increased stress - health anxiety - fear of dying of cancer, he does not live c his any longer ( , not ) - worried about dying and who would raise his son == pt asks for increase dose, advised of risk of abuse, pt states will only take prncont to f/u c therapist 2-3x/month rec increase sert to 100mg qd - pt states will discuss further c his therapist 12.25 - griselda/phq stable - see above [id number] Kulwinder Darling MD Telehealt h [address] [facility] [address] [place] [address] 07/08/2025 12:51:59 07/08/2025 14:48:02 Anxiety 11374466 F41.9 increased d/t health issues above - encouraged pt to cont to f/u c therapist, and will check griselda/phq next wk 6.28.23 - increased anxiety lately, moderate on griselda - his dad is a clinical psychologi st - he rec consider zoloft == rec in future if clinically worse (pt declines zoloft today), strongly encouraged pt to [facility] - handout provided, see below 11.24 - stable/no panic attack lately, infrequent use of prn benzo 1.25 - cont f/u c therapist q o week, cont f/u c marriage counsellor wklyinfreq uent use of prn benzosee below 3.25 - pt tolerating sertraline 25mg - scored lower on griselda/phq, but doesn't feel 'good' == rec increase to 50mg qd 8.25 - pt took extra lorazepam recently d/t increased stress - health anxiety - fear of dying of cancer, he does not live c his any longer ( , not ) - worried about dying and who would raise his son == pt asks for increase dose, advised of risk of abuse, pt states will only take prncont to f/u c therapist 2-3x/month rec increase sert to 100mg qd - pt states will discuss further c his therapist 12.25 - griselda/phq stable - see above 12.16.25 - panic better lately, but anxiety worse - griselda up to 13no tolerate sertraline d/t leg crampscont f/u c therapist q monthwill give trial of generic lexapro - start c 1/2 tab (5mg) qd x 1-2 wks - if better, stay on this dose - if no better but tolerating well then increase to 10mg qd Panic attack 683303335 F 39.0 no help c prn hydroxyzin e last year, his dad rec prn ativan - reviewed risks/bene fits, pt aware of addictive potential, will only take prn panic attack 3.25 - pt requested refill - rarely uses 12.25 - pt has used prn 1mg lately - just refilled recently - feeling better, but would still like to have just in case 12.16.25 - no panic attacks lately - no use of prn benzo - last used 1.5 wks ago (0.5mg - helpful) Health Concerns Section Related Observation LastModified by Organization Detai ls LastModified Time None Recorded Concern Status LastModified by Organization Details LastModified Time None Recorded Payers Encounter Date Sequence Insurance Name Policy Number Policy Andres Covered Member ID Andres Member ID Guarantor Name 07/08/2025 1 [facility] [place] [id number] 1 Juliuszafar Betzy [id number] Michael Bo Notes Date Note Type Note Provider Name and Address Organization Details Recorded Time 07/08/2025 text/html Anxiety/Depressi onRepo rted by PatientHPIFor quality, patient reportsincreased anxietyandpanic symptoms (better lately - no use of prn benzo in > 1.5 wks). For context, patient reportsmajor life stressors. For severity, patient reportsdenies suicidal ideations. For associated symptoms, patient reportsdenies homicidal ideations. Song Zhang PA-C [id number] [address], [place], [id number], [facility] [place] 07/08/2025 14:06:44
--- OUTSIDE RECORDS SUMMARY | 2025-07-11 07:15 | XMS_ITS | Data Portability ---
Author Organization [facility], Main Office Address 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 Patient consented to video & audio visit service was provided at the patient's home Patient was located in the [facility]. Provider was located in the office. No other persons participated in the telemedicine visit except for the patient unless otherwise indicated here. Total time of visit was 10 minutes. [email or web address] Not available 10/24/2024 16:07:41 07/08/2025 07/08/2025 This service was provided using telemedicine ([facility]). The patient consented and was seen through synchronous audio and video technology. If audio only connection was used, the provider used telephone communication. Patient was located at home in the [facility]. Provider was located in the office. No other persons participated in the telemedicine visit except for the patient unless otherwise indicated here. Total time of visit was 23 minutes. [email or web address] Not available 07/08/2025 14:04:01 Plan of Treatment Reminders Order Date Submit Date Provider Last Modified By Organization Details Last Modified Time Details Appointments None recorded. Lab lipid panel, serum 2024 025 ZOLTAN [facility] (Centralized Electronic Ordering - All Locations), Patient Can Go To The Location Of Their Choice, [address] 11:45:12 CMP, serum or plasma 2024 025 ZOLTAN [facility] (Centralized Electronic Ordering - All Locations), Patient Can Go To The Location Of Their Choice, [address] 11:45:12 TSH, ultra-sens itive, serum 2024 ZOLTAN [facility] (Centralized Electronic Ordering - All Locations), Patient Can Go To The Location Of Their Choice, [address] 11:56:59 vitamin D, 25-hydroxy , total, serum 2024 ZOLTAN [facility], [address], [place], [address], 08:06:58 hepatic function panel, serum 2024 ZOLTAN [facility] (Centralized Electronic Ordering - All Locations), Patient Can Go To The Location Of Their Choice, [address] 08:06:57 Referral dermatolog ist referral 2024 [email or web address] Beverley Jang MD, [address], [place], [address], 12:01:39 Procedures None recorded. Surgeries None recorded. Imaging None recorded. Medication Orders escitalopr am 10 mg tablet 2024 [facility]/Pharmacy #[id number], [address] [place], [address], 14:02:21 mupirocin 2 % topical ointment 2024 [facility]/Pharmacy #0693, [address] [place], [address], 11:56:59 lorazepam 0.5 mg tablet 2024 [email or web address] [facility]/Pharmacy #0693, [address] [place], [address], 13:15:37 lorazepam 1 mg tablet 08/27/ 2025 12/01/2 025 [email or web address] [facility]0693, [address] [facility] [place], [address], 16:30:43 sertraline 100 mg tablet [email or web address]/Pharmacy #0693, [address] [facility] [place], [address], 10:59:04 lorazepam 0.5 mg tablet [email or web address]/Pharmacy #0693, [address] [facility] [place], [address], 13:15:37 sertraline 50 mg tablet [email or web address]/Pharmacy #0693, [address] [facility] [place], [address], 10:59:08 Patient TargetsNo targets recorded. Patient Instructions Encounter Date Encounter Id Patient Instructions Last Modified By Organization Details Last Modified Time 08/14/2024 [id number] Patient will follow up and keep appointment as scheduled. pmadden Not available 08/14/2024 14:48:39 09/24/2024 [id number] encouraged pt to check outstanding labs as directed pmadden Not available 09/24/2024 14:36:21 Medications (OTC , herbal therapies, supplements) reviewed and reconciled with patient and or caregiver, including potential side effects, drug interactions, instructions, and the consequences of not taking medication. Reviewed potential barriers to medication adherence, such as side effects from medication or cost of medication. pmadden Not available 09/24/2024 14:36:13 03/19/2025 [id number] Medications (OTC , herbal therapies, supplements) reviewed and reconciled with patient and or caregiver, including potential side effects, drug interactions, instructions, and the consequences of not taking medication. Reviewed potential barriers to medication adherence, such as side effects from medication or cost of medication. pmadden Not available 03/19/2025 11:39:00 06/23/2025 [id number] Well Visit, Ages 18 to 65: Care Instructions pmadden Not available 06/24/2025 12:15:13 Medications (OTC , herbal therapies, supplements) reviewed and reconciled with patient and or caregiver, including potential side effects, drug interactions, instructions, and the consequences of not taking medication. Reviewed potential barriers to medication adherence, such as side effects from medication or cost of medication. pmadden Not available 06/23/2025 11:45:07 07/08/2025 [id number] Medications (OTC , herbal therapies, supplements) reviewed and reconciled with patient and or caregiver, including potential side effects, drug interactions, instructions, and the consequences of not taking medication. Reviewed potential barriers to medication adherence, such as side effects from medication or cost of medication. 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 for L esion of skin of face Referring Physician: Song Grant, Internal Medicine, Encounter Date: 03/19/2025 Results Created Date Observation Date Name Description Value Unit Range Abnormal Flag Note LastModifiedBy Organization Detail LastModifiedTime 10/01/1910/01/2024 CBC WITH DIFFE RENTI AL/PL ATELE T WBC 9.7 x10e3 /uL 3.4-10 .8 normal Not Available [facility] ([facility]) [address] [place], [address], 10/01/2024 06:07:24 10/01/19 25 10/01/2024 CBC WITH DIFFE RENTI AL/PL ATELE T RBC 5.34 x10e6 /uL 4.14-5 .80 normal Not Available [facility] ([facility]) [address] [place], [address], 10/01/2024 06:07:24 10/01/19 25 10/01/2024 CBC WITH DIFFE RENTI AL/PL ATELE T hemoglobin 15.8 g/dL 13.0-1 7.7 normal Not Available [facility] ([facility]) [address] [place], [address], 10/01/2024 06:07:24 10/01/19 25 10/01/2024 CBC WITH DIFFE RENTI AL/PL ATELE T hematocrit 46.9 % 37.5-5 1.0 normal Not Available [facility] ([facility]) [address] [place], [address], 10/01/2024 06:07:24 10/01/19 25 10/01/2024 CBC WITH DIFFE RENTI AL/PL ATELE T MCV 88 fL 79-97 normal Not Available [facility] ([facility]) [address] [place], [address], 10/01/2024 06:07:24 10/01/19 25 10/01/2024 CBC WITH DIFFE RENTI AL/PL ATELE T MCH 29.6 pg 26.6-3 3.0 normal Not Available [facility] ([facility]) [address] [place], [address], 10/01/2024 06:07:24 10/01/19 25 10/01/2024 CBC WITH DIFFE RENTI AL/PL ATELE T MCHC 33.7 g/dL 31.5-3 5.7 normal Not Available [facility] ([facility]) [address] [place], [address], 10/01/2024 06:07:24 10/01/19 25 10/01/2024 CBC WITH DIFFE RENTI AL/PL ATELE T RDW 12.6 % 11.6-1 5.4 Not Available [facility] ([facility]) [address] [place], [address], 10/01/2024 06:07:24 10/01/19 25 10/01/2024 CBC WITH DIFFE RENTI AL/PL ATELE T platelets 264 x10e3 /uL 150-45 0 normal Not Available [facility] ([facility]) [address] [place], [address], 10/01/2024 06:07:24 10/01/19 25 10/01/2024 CBC WITH DIFFE RENTI AL/PL ATELE T neutrophils 49 % not estab. normal Not Available [facility] ([facility]) [address] [place], [address], 10/01/2024 06:07:24 10/01/19 25 10/01/2024 CBC WITH DIFFE RENTI AL/PL ATELE T lymphs 37 % not estab. normal Not Available [facility] ([facility]) [address] [facility], [place], [address], 10/01/2024 06:07:24 10/01/19 25 10/01/2024 CBC WITH DIFFE RENTI AL/PL ATELE T monocytes 6 % not estab. normal Not Available [facility] ([facility]) [address] [facility], [place], [address], 10/01/2024 06:07:24 10/01/19 25 10/01/2024 CBC WITH DIFFE RENTI AL/PL ATELE T eos 7 % not estab. normal Not Available [facility] ([facility]) [address] [facility], [place], [address], 10/01/2024 06:07:24 10/01/19 25 10/01/2024 CBC WITH DIFFE RENTI AL/PL ATELE T basos 1 % not estab. normal Not Available [facility] ([facility]) [address] [facility], [place], [address], 10/01/2024 06:07:24 10/01/19 25 10/01/2024 CBC WITH DIFFE RENTI AL/PL ATELE T immature cells [employer] Not Available [facility] ([facility]) [address] [place], [address], 10/01/2024 06:07:24 10/01/19 25 10/01/2024 CBC WITH DIFFE RENTI AL/PL ATELE T neutrophils (absolute) 4.8 x10e3 /uL 1.4-7. 0 normal Not Available [facility] ([facility]) [address] [facility], [place], [address], 10/01/2024 06:07:24 10/01/19 25 10/01/2024 CBC WITH DIFFE RENTI AL/PL ATELE T lymphs (absolute) 3.6 x10e3 /uL 0.7-3. 1 above high normal Not Available [facility] ([facility]) [address] [facility], [place], [address], 10/01/2024 06:07:24 10/01/19 25 10/01/2024 CBC WITH DIFFE RENTI AL/PL ATELE T monocytes(ab solute) 0.6 x10e3 /uL 0.1-0. 9 normal Not Available [facility] ([facility]) [address] [facility], [place], [address], 10/01/2024 06:07:24 10/01/19 25 10/01/2024 CBC WITH DIFFE RENTI AL/PL ATELE T eos (absolute) 0.7 x10e3 /uL 0.0-0. 4 above high normal Not Available [facility] ([facility]) [address] [facility], [place], [address], 10/01/2024 06:07:24 10/01/19 25 10/01/2024 CBC WITH DIFFE RENTI AL/PL ATELE T baso (absolute) 0.1 x10e3 /uL 0.0-0. 2 normal Not Available [facility] ([facility]) [address] [place], [address], 10/01/2024 06:07:24 10/01/19 25 10/01/2024 CBC WITH DIFFE RENTI AL/PL ATELE T immature granulocytes 0 % not estab. Not Available [facility] ([facility]) [address] [facility], [place], [address], 10/01/2024 06:07:24 10/01/19 25 10/01/2024 CBC WITH DIFFE RENTI AL/PL ATELE T immature grans (abs) 0.0 x10e3 /uL 0.0-0. 1 Not Available [facility] ([facility]) [address] [facility], [place], [address], 10/01/2024 06:07:24 10/01/19 25 10/01/2024 CBC WITH DIFFE RENTI AL/PL ATELE T NRBC [employer] Not Available [facility] ([facility]) [address] [facility], [place], [address], 10/01/2024 06:07:24 10/01/19 25 10/01/2024 CBC WITH DIFFE RENTI AL/PL ATELE T hematology comments: [employer] Not Available [facility] ([facility]) [address] [facility], [place], [address], 10/01/2024 06:07:24 10/01/19 25 10/01/2024 COMP. METAB OLIC PANEL (14) glucose 72 mg/dL 70-99 normal Not Available [facility] ([facility]) [address] [facility], [place], [address], 10/01/2024 06:07:25 10/01/19 25 10/01/2024 COMP. METAB OLIC PANEL (14) BUN 13 mg/dL 6-20 normal Not Available [facility] ([facility]) [address] [facility], [place], [address], 10/01/2024 06:07:25 10/01/19 25 10/01/2024 COMP. METAB OLIC PANEL (14) creatinine 1.07 mg/dL 0.76-1 .27 normal Not Available [facility] ([facility]) [address] [facility], [place], [address], 10/01/2024 06:07:25 10/01/19 25 10/01/2024 COMP. METAB OLIC PANEL (14) eGFR 92 mL/mi n/1.7 3 >59 normal Not Available [facility] ([facility]) [address] [place], [address], 10/01/2024 06:07:25 10/01/19 25 10/01/2024 COMP. METAB OLIC PANEL (14) BUN/creatini ne ratio 12 9-20 normal Not Available [facility] ([facility]) [address] [place], [address], 10/01/2024 06:07:25 10/01/19 25 10/01/2024 COMP. METAB OLIC PANEL (14) sodium 137 mmol/ L 134-14 4 normal Not Available [facility] ([facility]) [address] [place], [address], 10/01/2024 06:07:25 10/01/19 25 10/01/2024 COMP. METAB OLIC PANEL (14) potassium 4.1 mmol/ L 3.5-5. 2 normal Not Available [facility] ([facility]) [address] [place], [address], 10/01/2024 06:07:25 10/01/19 25 10/01/2024 COMP. METAB OLIC PANEL (14) chloride 98 mmol/ L 96-106 normal Not Available [facility] ([facility]) [address] [place], [address], 10/01/2024 06:07:25 10/01/19 25 10/01/2024 COMP. METAB OLIC PANEL (14) carbon dioxide, total 23 mmol/ L 20-29 normal Not Available [facility] ([facility]) [address] [place], [address], 10/01/2024 06:07:25 10/01/19 25 10/01/2024 COMP. METAB OLIC PANEL (14) calcium 9.3 mg/dL 8.7-10 .2 normal Not Available [facility] ([facility]) [address] [place], [address], 10/01/2024 06:07:25 10/01/19 25 10/01/2024 COMP. METAB OLIC PANEL (14) protein, total 7.1 g/dL 6.0-8. 5 normal Not Available [facility] ([facility]) [address] [place], [address], 10/01/2024 06:07:25 10/01/19 25 10/01/2024 COMP. METAB OLIC PANEL (14) albumin 4.7 g/dL 4.1-5. 1 normal Not Available [facility] ([facility]) [address] [place], [address], 10/01/2024 06:07:25 10/01/19 25 10/01/2024 COMP. METAB OLIC PANEL (14) globulin, total 2.4 g/dL 1.5-4. 5 Not Available [facility] ([facility]) [address] [place], [address], 10/01/2024 06:07:25 10/01/19 25 10/01/2024 COMP. METAB OLIC PANEL (14) bilirubin, total 0.7 mg/dL 0.0-1. 2 normal Not Available [facility] ([facility]) [address] [place], [address], 10/01/2024 06:07:25 10/01/19 25 10/01/2024 COMP. METAB OLIC PANEL (14) alkaline phosphatase 89 IU/L 44-121 normal Not Available [facility] ([facility]) [address] [place], [address], 10/01/2024 06:07:25 10/01/19 25 10/01/2024 COMP. METAB OLIC PANEL (14) AST (SGOT) 59 IU/L 0-40 above high normal Not Available [facility] ([facility]) [address] [place], [address], 10/01/2024 06:07:25 10/01/19 25 10/01/2024 COMP. METAB OLIC PANEL (14) ALT (SGPT) 24 IU/L 0-44 normal Not Available [facility] ([facility]) [address] [place], [address], 10/01/2024 06:07:25 10/01/19 25 10/01/2024 LIPID PANEL cholesterol, total 204 mg/dL 100-19 9 above high normal Not Available [facility] ([facility]) [address] [place], [address], 10/01/2024 06:07:25 10/01/19 25 10/01/2024 LIPID PANEL triglyceride s 161 mg/dL 0-149 above high normal Not Available [facility] ([facility]) [address] [place], [address], 10/01/2024 06:07:25 10/01/19 25 10/01/2024 LIPID PANEL HDL cholesterol 45 mg/dL >39 normal Not Available [facility] ([facility]) [address] [place], [address], 10/01/2024 06:07:25 10/01/19 25 10/01/2024 LIPID PANEL VLDL cholesterol laura 29 mg/dL 5-40 Not Available [facility] ([facility]) [address] [place], [address], 10/01/2024 06:07:25 10/01/19 25 10/01/2024 LIPID PANEL LDL chol calc ([facility]) 130 mg/dL 0-99 above high normal Not Available [facility] ([facility]) [address] [place], [address], 10/01/2024 06:07:25 10/01/19 25 10/01/2024 LIPID PANEL LDL calc comment: [employer] Not Available [facility] ([facility]) [address] [place], [address], 10/01/2024 06:07:25 10/01/19 25 10/01/2024 HEMOG LOBIN A1C hemoglobin A1C 5.1 % 4.8-5. 6 normal Predi abete s: 5.7 - 6.4 Diabe maged: >6.4 Glyce sejal contr ol for adult s with diabe maged: <7.0 Not Available [facility] ([facility]) [address] [facility], [place], [address], 10/01/2024 06:07:25 10/01/19 25 10/01/2024 VITAM IN D, 25-HY DROXY vitamin D, 25-hydroxy 13.7 NG/mL 30.0-1 00.0 below low normal Vitam in D defic iency has been defin ed by the Insti tute of Medic ine and an Endoc rine Socie ty pract ice guide line as a level of serum 25-OH vitam in D less than 20 ng/mL (1,2) . The Endoc rine Socie ty went on to furth er defin e vitam in D insuf ficie ncy as a level betwe en 21 and 29 ng/mL (2). 1. IOM (Inst itute of Medic ine). 2009. Dieta ry refer ence terra es for calci um and D. Stella bueno [place]: [facility] . 2. Jer chi MF, Eddie ey [place], Hannah off-F errar i ROBLERO, et al. Evalu ation , treat ment, and preve ntion of vitam in D defic iency : an Endoc rine Socie ty clini laura pract ice guide line. JCEM. 2010; 96(7) :1911 -30. Not Available [facility] ([facility]) [address] [facility], [place], [address], 10/01/2024 06:07:26 03/28/20 25 03/29/2025 HEPAT IC FUNCT ION PANEL (7) protein, total 7.0 g/dL 6.0-8. 5 normal Not Available [facility] ([facility]) [address] [place], [address], 03/29/2025 08:06:57 03/28/20 25 03/29/2025 HEPAT IC FUNCT ION PANEL (7) albumin 4.5 g/dL 4.1-5. 1 normal Not Available [facility] ([facility]) [address] [place], [address], 03/29/2025 08:06:57 03/28/20 25 03/29/2025 HEPAT IC FUNCT ION PANEL (7) bilirubin, total 0.4 mg/dL 0.0-1. 2 normal Not Available [facility] ([facility]) [address] [place], [address], 03/29/2025 08:06:57 03/28/20 25 03/29/2025 HEPAT IC FUNCT ION PANEL (7) bilirubin, direct 0.17 mg/dL 0.00-0 .40 normal Not Available [facility] ([facility]) [address] [place], [address], 03/29/2025 08:06:57 03/28/2003/29/2025 HEPAT IC FUNCT ION PANEL (7) alkaline phosphatase 76 IU/L 44-121 normal Eff ectiv e Septe mber 2024 Alkal ine Phosp hatas e refer ence inter tori will be alanis ing to: Age Male Femal e 0 - 5 days 47 - 127 47 - 127 6 - 10 days 29 - 242 29 - 242 11 - 20 days 109 - 357 109 - 357 21 - 30 days 94 - 494 94 - 494 1 - 2 month s 149 - 539 149 - 539 3 - 6 month s 131 - 452 131 - 452 7 - 11 month s 117 - 401 117 - 401 12 month s - 6 years 158 - 369 158 - 369 7 - 12 years 150 - 409 150 - 409 13 years 156 - 435 78 - 227 14 years 114 - 375 64 - 161 15 years 88 - 279 56 - 134 16 years 74 - 207 51 - 121 17 years 63 - 161 47 - 113 18 - 20 years 51 - 125 42 - 106 21 - 50 years 47 - 123 41 - 116 51 - 80 years 49 - 135 51 - 125 >80 years 48 - 129 48 - 129 Not Available [facility] ([facility]) [address] [place], [address], 03/29/2025 08:06:57 03/28/20 25 03/29/2025 HEPAT IC FUNCT ION PANEL (7) AST (SGOT) 21 IU/L 0-40 normal Not Available [facility] ([facility]) [address] [facility], [place], [address], 03/29/2025 08:06:57 03/28/20 25 03/29/2025 HEPAT IC FUNCT ION PANEL (7) ALT (SGPT) 23 IU/L 0-44 normal Not Available [facility] ([facility]) [address] [place], [address], 03/29/2025 08:06:57 03/28/20 25 03/29/2025 VITAM IN D, 25-HY DROXY vitamin D, 25-hydroxy 52.4 NG/mL 30.0-1 00.0 Vitam in D defic iency has been defin ed by the Insti tute of Medic ine and an Endoc rine Socie ty pract ice guide line as a level of serum 25-OH vitam in D less than 20 ng/mL (1,2) . The Endoc rine Socie ty went on to [facility] er defin e vitam in D insuf ficie ncy as a level betwe en 21 and 29 ng/mL (2). 1. IOM (Inst itute of Medic ine). 2010. Dieta ry refer ence intak es for calci um and D. Stella bueno DC: [facility] Press . 2. Jer chi MF, Eddie angelo [place], Hannah off-F errsergio i ROBLERO, et al. Evalu ation , treat ment, and preve ntion of vitam in D defic iency : an Endoc rine Socie ty clini laura pract ice guide line. JCEM. 2010; 96(7) :1911 -30. Not Available [facility] ([facility]) [address], [place], [address], 03/29/2025 08:06:57 05/25/2005/25/2025 XR, chest , 2 view No observ ation record ed. [facility] (Medical Records) [address] [place], [address], 06/23/2025 11:19:38 05/26/2005/26/2025 CT, angio gram, chest , w/ contr ast No observ ation record ed. [facility] (Medical Records) [address] [place], [address], 06/23/2025 11:19:38 05/26/20 25 05/26/2025 CT, angio gram, chest , w/ contr ast No observ ation record ed. [facility] (Medical Records) [address] [place], [address], 06/23/2025 11:19:38 Result Notes None recorded. Problems Name Problem SNOMED Code Status Onset Date Resolution Date Notes Provider Name and Address Organization Details Recorded Time Asthma 473238894 Completed 201611/23/2022 Song Grant PA-C [address] [facility] [address], [place], [address], [facility] 3 11:39:45 Attention deficit hyperacti vity disorder, predomina ntly inattenti ve type 54354668 Completed 201911/23/2022 Song Grant PA-C [address], [place], [address], [facility] 3 11:38:48 Chronic urticaria 51517132 Completed 201906/19/2024 Song Grant PA-C [address] [facility] [address], [place], [address], [facility] 4 15:00:02 Mild major depressio n, single episode 22389447 Completed 202111/23/2022 Song Grant PA-C [address], [place], [address], [facility] 3 11:38:51 Situation al panic attack 657642039 Completed 202111/23/2022 Song Grant PA-C [address], [place], [address], [facility] 3 11:38:59 Anxiety 03244336 Completed 202111/23/2022 Song Grant PA-C [address] [facility] [address], [place], [address], [facility] 3 09:59:13 Mild persisten t asthma 570413603 Active 2022 Song Grant PA-C [address], [place], [address], [facility] 3 11:39:37 Allergic conjuncti vitis of bilateral eyes 244799114583 102 Completed 202206/19/2024 Song Grant PA-C [address] [facility] [address], [place], [address], [facility] 4 15:00:07 Anxiety 85055903 Active 2022 Song Grant PA-C [address], [place], [address], [facility] 3 09:59:13 Panic attack 391734613 Active 2022 Song Grant PA-C [address], [place], [address], [facility] 3 14:58:18 Testicula r naveed iasis 335064789273 108 Active 2023 Angelika Edmond MD [address], [place], [address], [facility] 4 13:51:16 Tinnitus of right ear 977778260925 8 Active 2023 Song Grant PA-C [address] [facility] [address], [facility] [place], [address], [facility] 4 15:01:07 Vitamin D deficienc y 53079024 Active 2024 Song Grant PA-C [address] [facility] [address], [facility] [place], [address], [facility] 5 16:08:58 Problem Notes None recorded. Procedures Surgical History Date Name Laterality Status Provider Name and Address Organization Details Recorded Time 05/26/[address] angiography of chest with contrast completed Lisa Carballo [facility] 06/03/2025 13:30:01 07/24/19 00 Appendectomy completed Araseli Fontenot [facility] 04/06/2020 14:04:19 Imaging Results None recorded. Procedure Notes None recorded. Medical Equipment None Reported. Allergies Allergen ID Allergen Name Allergen Category Reaction Reaction Severity Criticality Documentation Date Start Date Code Code System Note Provider Name and Address Organization Details Recorded Time 85844 Ceclor CD medicatio n hives severe Not available 09/13/2016 24798 1 [facility] 7 12:58:16 49674 Levaquin medicatio n vasculiti s severe Not available 09/13/2016 71710 2 RxNorm Vanesa JAMES [facility] 7 12:58:16 [id number] fluticaso ne / salmetero l medicatio n rash severe Not available 09/13/2016 64005 5 RxNorm no probl ems c using proai r Song Grant PA-C [address] [facility] [address], [place], [address], [facility] 8 14:40:06 58142 Claritin medicatio n other severe Not available 09/13/201619563 6 RxNorm JAMES Riojas MA [facility] 12:58:16 20121 cefaclor medicatio n rash Not available Not available 07/02/20252024 2176 RxNorm Not Available zoltan - External Data Service - prod 14:11:55 01165 levofloxa dot medicatio n anaphylax is Not available Not available 07/02/20252024 34875 RxNorm Not Available zoltan - External Data Service - prod 14:11:55 94801 loratadin e medicatio n anaphylax is Not available Not available 07/02/20252024 52398 RxNorm Not Available zoltan - External Data Service - prod 14:11:55 Medications Name Sig Start Date Stop Date Status Note LastModified by Organization Details LastModified Time multivitami n tablet Take 1 tablet every day by oral route. 08/12 completed Not Available Not Available Not Available [...] Not Available Vitals Date Recorded Body height Body mass index (BMI) Body weight Oxygen saturation Heart rate Body temperature Systolic And Diastolic Provider Name and Address Organization Details Last Updated DateTime 5 181.61 cm 24.6 kg/m2 30632.0 3 g 98 % 86 /min 97.6 [degF] 122/76 mm[Hg] Narc[facility]rabort[facility] 5 14:05:59 Date Recorded Body height Body mass index (BMI) Body weight Heart rate Oxygen saturation Body temperature Systolic And Diastolic Provider Name and Address Organization Details Last Updated DateTime 5 181.61 cm 22.6 kg/m2 89676.1 5 g 57 /min 98 % 97.9 [degF] 116/74 mm[Hg] Sierra Yates MA [facility] 5 10:48:08 Date Recorded Body height Body mass index (BMI) Body weight Heart rate Oxygen saturation Body temperature Systolic And Diastolic Provider Name and Address Organization Details Last Updated DateTime 5 181.61 cm 22.6 kg/m2 10945.1 5 g 65 /min 99 % 98.7 [degF] 130/83 mm[Hg] [facility] 5 10:58:04 Date Recorded Body height Provider Name an d Address Organization Details Last Updated DateTime 07/08/2025 181.61 cm Mitali Ocampo MA [facility] 07/08/2025 13:13:54 Social History Question Answer Notes LastModified by Organizat ion Details LastModified Time Tobacco Smoking Status [facility] 09/13/2016 12:58:17 Do You Have An Advance Directive? Yes HCP [email or web address] Information not available 01/13/2022 Is Blood Transfusion Acceptable In An Emergency? Yes Information not available 09/13/2016 What Is Your Level Of Caffeine Consumption? Moderate [email or web address] Information not available 04/06/2020 How Much Tobacco Do You Chew? None [email or web address] Information not available 04/06/2020 In The 14 Days Before Symptom Onset, Have You Had Close Contact With A Laboratory-confi rmed COVID-19 While That Case Was Ill? No [email or web address] Information not available 01/13/2022 In The 14 Days Before Symptom Onset, Have You Had Close Contact With A Person Who Is Under Investigation For COVID-19 While That Person Was Ill? No [email or web address] Information not available 01/13/2022 Have You Been To An Area Known To Be High Risk For COVID-19? No [email or web address] Information not available 01/13/2022 What Type Of [...] Do You Use Protection During Sex? No [email or web address] Information not available 04/06/2020 Do You Use Your Seat Belt Or Car Seat Routinely? Yes [email or web address] Information not available 12/24/2021 Seat Belts Used Routinely Yes [email or web address] Information not available 01/13/2022 Are You Sexually Active? Yes Information not available 09/13/2016 Smoke Alarm In Home Yes [email or web address] Information not available 01/13/2022 Do You Have Smoke And Carbon Monoxide Detectors In Your Home? Yes [email or web address] Information not available 12/24/2021 At What Age [...] independently without assistance or assistive devices? YESWOREST [email or web address] Information not available 01/13/2022 Are you able to care for yourself independently? Yes Information not available 09/13/2016 What is your occupation? Other [email or web address] Information not available 12/27/2024 Do you or have you ever used e-cigarettes or vape? Never used electronic cigarettes [email or web address] Information not available 01/13/2022 What is your exercise level? None Information not available 06/19/2024 Mental Status None recorded. Family History Relationship Description Onset Age of this Age Resolved Age Notes LastModified by Organization Details LastModified Time Mother Asthma [email or web address] Not available 09/13/2016 12:58:16 Mother Anxiety disorder [email or web address] Not available 12/24 14:38:18 Notes:no fh CRC, [...] mL dose 10/16/19 21 completed Not Available [facility] 09/14/2022 19:23:47 COVID-19, mRNA, LNP-S, PF, 30 mcg/0.3 mL dose 11/07/19 21 completed Not Available [facility] 09/14/2022 19:23:47 COVID-19, mRNA, LNP-S, PF, 30 mcg/0.3 mL dose 05/14/20 21 completed Not Available [facility] 09/14/2022 19:23:47 COVID-19, mRNA, LNP-S, bivalent, PF, 30 mcg/0.3 mL dose 05/27/20 22 completed JAMES Olivarez [facility] 11/23/2022 10:38:03 Influenza, split virus, quadrivalent, PF 07/15/20 22 completed JAMES Olivarez [facility] 11/23/2022 10:38:03 COVID-19, mRNA, LNP-S, PF, ally-sucrose, 30 mcg/0.3 mL 04/23/20 24 completed JAMES Olivarez, [facility] 06/19/2024 14:27:46 Influenza, split virus, trivalent, PF 05/17/20 24 completed JAMES Olivarez, [facility] 06/19/2024 14:27:46 Influenza, split virus, quadrivalent, PF 04/06/20 20 completed Araseli lyn, [facility] 04/06/2020 14:19:35 Td (adult), 2 Lf tetanus toxoid, preservative free, adsorbed 04/06/20 20 cancelled patient objection Song Grant PA-C [address] [facility] [address], [place], [address], [facility] 04/06/2020 14:58:30 Influenza, split virus, quadrivalent, PF 06/30/20 21 completed JAMES Michael, [facility] 06/30/2021 14:58:21 Tdap 06/30/20 21 completed JAMES Michael, [facility] 06/30/2021 14:58:21 Past Encounters Encounter ID Performer Location Encounter Start Date Encounter Closed Date Diagnosis/Indication Diagnosis SNOMED-CT Code Diagnosis ICD10 Code Diagnosis IMO Codes Diagnosis Note [id number] Song Grant PA-C Main Office [address] [facility] [address] [place] [address] 09/13/2016 12:37:14 09/13/2016 14:09:06 Asthma 553889797 J45.20 pt requests refill of epipen - [facility] has never used it, but wants it on-hand just in case Adult heal th examination 645265618 Z00.00 Body mass index 25-29 - overweight 692828829 Z68.29 Fatigue 08525009 R53.83 [id number] Song Grant PA-C Main Office [address] [facility] [address] [place] [address] 07/18/2018 13:33:24 07/18/2018 14:46:29 Acute asthma 174069813 J45.901 believe trigger of head cold is resolving, but still has mild pnd and his asthma flare of lung fxn has persisted (johan in am) - trial c singulair daily and use prn nasal saline spray (johan hs), cont prn alb, consider re-trial of sudafed 1-2 tabs in am and / or early afternoon if head congestion getting worse -- still no better - call us - may need abx for sinusitis, and check spirometry when machine is up/running in 2 wks (don't use alb on day of o.v. 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 6599017167 44047 G56.01 will set up ortho eval, pt declines wrist splint at this - rec get otc velcro support [id number] Sarah coats MD Main Office [address] [facility] [address] [place] [address] 08/14/2018 13:22:23 08/14/2018 13:52:49 Acute sinusitis 63032974 J01.90 tx with doxycyclin e, pt with levaquin and augmentin allergy, hydrate adn nasal saline Cough 37168895 R05 from sinusitis and asthma flare tx with proair as needed Acute asthma 896776673 J 45.901 hold off on steroid inhaler due to advair allergy, on singulair for a month [id number] Kulwinder Darling MD Main Office [address] [facility] [address] [place] [address] 11/26/2018 13:28:21 11/26/2018 14:28:19 Acute pharyngitis 907080044 J02.9 neg rapid strep Cough 26715989 R05 likely d/t pnd from sinusitis - see below Acute sinusitis 15233133 J01.90 rec probiotics while on abx will rx c pred pulse d/t second sinusitis in past 4 months Mild inter mittent asthma 156373092 J45.20 stable, cont prn alb [id number] Kulwinder Darling MD Main Office [address] [facility] [address] [place] [address] 08/19/2019 09:43:56 08/19/2019 10:37:27 Fever 947036109 R50.9 Influenza B virus present 662631303 J10.1 rest, hydration, antipyreti c every 4-6 hours as needed. Call if not improving in the next few days, sooner if worsening. Would begin tamiflu today. Prevention of spread discussed. Acute sinusitis 02442020 J01.90 steam, flonase, sinus nasal rinses, keep hydrated, start antibiotic (pt double checked not allergic to amox) Call if not improving within a few days to a week, sooner if worsening. [id number] Darryl Mills MD Main Office [address] [address] 02/11/2020 09:51:15 02/11/2020 10:25:50 Asthma 928817372 J45.909 re-start singulair daily Acute asthma 684914640 J 45.901 will refill proair and rx prednisone taper for exacerbati on sx. if no change in next 3 days please call/ return. he would likely benefit from nebulizer tx but we cannot currently do txs due to COVID pandemic. He notes he does not usually even need his rescue inhaler so outside of this episode he may not need at home neb. Allergic urticaria 09587 009 L50.0 start zyrtec daily [id number] Kulwinder Darling MD Main Office [address] [address] 04/06/2020 13:57:17 04/06/2020 15:10:51 Adult health examination 379007784 Z00.00 Needs infl uenza immunization 524699174 Z23 Asthma 577994053 J45.20 using proair fairly often - few times/day - will refill and give trial of flovent ac sees sales estimator below Chronic urticaria 141784 05 L50.8 see above - will get allergy re-eval Major depr essive disorder 971477844 F32.0 no h/o ssri use, never seen by counsellor - mild - will re-eval soon Attention deficit hyperactivity disorder, 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 [address] [place] [address] [place] [address] 05/28/2020 14:20:16 05/28/2020 15:17:58 Major depressive disorder 328467205 F32.0 better lately - no h/o ssri use, never seen by counsellor Asthma 478559682 J45.20 sig better flovent - cont as dir Chronic urticaria 515834 05 L50.8 see above - pending allergy re-eval [id number] K[facility] Darling [facility] [address] [address] [place] [address] 06/29/2021 08:18:03 06/29/2021 12:06:53 Asthma 339127669 J45.20 stable - cont meds/inhal ers as dir Major depr essive disorder 043780623 F32.0 better lately - no h/o ssri use, never seen by counsellor [id number] Angelika Edmond MD Main Office [address] [address] [place] [address] 06/30/2021 09:19:02 06/30/2021 10:14:27 Needs influenza immunization 651729027 Z23 Administra tion of viral vaccine 67862975 Z23 [id number] Kulwinder Darling MD Main Office [facility] [address] [place] [address] 08/12/2021 09:55:27 08/12/2021 10:55:13 Adult health examination 219626150 Z00.00 Insomnia 924081921 G47.0 0 rec better sleep hygiene, johan stop looking at cell phone ac hs - consider melatonin p dinner if no help Asthma 877864339 J45.20 stable - cont meds/inhal ers as dir Major depr essive disorder 961936322 F32.0 better lately - no h/o ssri use, never seen by counsellor [id number] Angelika Edmond MD Main Office [facility] [address] [place] [address] 12/24/2021 14:20:43 12/24/2021 15:46:07 Lightheadedness 827898014 R42 check labs to rule out anemia, diabetes , he has been anemic before Paresthesia 98807211 R20 .2 Loose stool 604560308 R1 9.5 increase fiber, try to eat more regular healthy meals, keep track of offending foods Irritable bowel syndrome with diarrhea 757970129 K58.0 Try dicyclomin e, side effects reviewed, can cause dry mouth when taken with hydroxyzin e, avoid both together. Watch for food triggers, diet history and short term followup with his pcp Song Grant Panic attack 598690833 F 41.0 Discussed need for regular mental health counseling and possible med evaluation . Will give small supply of med to use prn and panic attacks are more frequent. Will check with EAP program. Consider SSRI if labs ok, can discuss with Snog at [place] visit, call sooner prn. [id number] Kulwinder Darling MD Main Office [address] [place] [address] 01/13/2022 09:13:08 01/13/2022 09:53:53 Situational panic attack 023602291 F41.0 improved with use of hydroxyzin e. has since stopped taking and is managing with mindfulnes s. but see anxiety below - advised to schedule with therapist Paresthesia 88150165 R20 .2 resolved, negative work up. Loose stool 801469951 R1 9.5 Resolved. episodes occurred along side panic attacks. Anxiety 07226307 F41.9 moderate on griselda, better than prior - but still encouraged to f/u c therapist [id number] Kulwinder Darling MD Main Office [address] [place] [address] 11/23/2022 10:15:09 11/23/2022 11:36:29 Adult health examination 351968198 Z00.00 Allergic conjunctivitis of bilateral eyes 9760741446 31790 H10.13 rec saline prn - johan p being outside, cutting lawn, etc -- hopefully will need visine less freq Impaired f asting glycemia 661020098 R73.01 Hyperlipidemia 02909279 E78.5 Mild persi stent asthma 360482424 J45.30 stable - cont meds/inhal ers as dir [id number] Kulwinder Darling MD Main Office [address] [facility] [address] [place] [address] 01/12/2023 14:48:44 01/12/2023 16:18:10 Exposure to viral disease 0304357400 49908 Z03.818 offered reassuranc e c negative covid test Asthmatic bronchitis 405 507161 J45.909 lungs still sound 'tight' --- given his h/o hospitaliz ation remotely and recent use of pred pulse c 2 abx, will rx with longer course of pred taper to hopefully keep him out of the hospital, and get pulm eval meanwhile, cont inhalers as dir, and rtc 1 wk Pneumonia 557803579 J18. 9 better p 2 abx - pt states no longer feels 'ill' Cough 84710798 R05.9 rec prn tessalon Diarrhea 92736067 R19.7 persists - ? etiology --- rec brat diet, cont probiotic, check stool studies and recheck bmp to r/o dehydratio n Anxiety 71184076 F41.9 increased d/t health issues above - encouraged pt to cont to f/u c therapist, and will check griselda/phq next wk [id number] Kulwinder Darling MD Main Office [address] [facility] [address] [place] [address] 01/19/2023 13:57:32 01/19/2023 14:54:04 Asthmatic bronchitis 591618454 J45.909 lungs still sound 'tight' --- given his h/o hospitaliz ation remotely and recent use of pred pulse c 2 abx, will rx with longer course of pred taper to hopefully keep him out of the hospital, and get pulm eval meanwhile, cont inhalers as dir, and rtc 1 wk 6.23 - resolved Asthma 613212925 J45.20 stable - cont meds/inhal ers as dir, pt requests refill of flovent pending see pulm 8 Diarrhea 34106779 R19.7 persists - ? etiology --- rec brat diet, cont probiotic, check stool studies and recheck bmp to r/o dehydratio n 6..23 - resolved, pt deferred stool studies Anxiety 49241183 F41.9 increased d/t health issues above - encouraged pt to cont to f/u c therapist, and will check griselda/phq next wk 6.28.23 - increased anxiety lately, moderate on griselda - his dad is a clinical psychologi st - he rec consider zoloft == rec in future if clinically worse (pt declines zoloft today), strongly encouraged pt to call [facility] to see a therapist - handout provided, see below Panic attack 701778972 F 41.0 no help c prn hydroxyzin e last year, his dad rec prn ativan - reviewed risks/bene fits, pt aware of addictive potential, will only take prn panic attack [id number] Angelika Edmond MD Main Office [address] [address] 04/20/2024 08:33:25 04/20/2024 09:17:11 Inguinal pain 084447011 R10.2 -Will get US of testes and groin to r/o epididimit is/orchiti s/hydrocel e/varicoce le and eval for possible inguinal hernia.-Lo w suspicion for groin strain.-Wi ll get STI panel and urine test.-Ibup rofen for pain.-Supp ortive underwear advised. Venereal d isease screening 086049057 Z20.2 Z11.3 Z72.89 Z72.51 [id number] Kulwinder Darling MD Main Office [address] [address] 06/19/2024 13:53:28 06/19/2024 14:53:58 Adult health examination 165768833 Z00.00 Anxiety 80212961 F41.9 increased d/t health issues above - encouraged pt to cont to f/u c therapist, and will check griselda/phq next wk 6.28.23 - increased anxiety lately, moderate on griselda - his dad is a clinical psychologi st - he rec consider zoloft == rec in future if clinically worse (pt declines zoloft today), [facility] - handout provided, see below 11.24 - stable/no panic attack lately, infrequent use of prn benzo Mild persi stent asthma 716151287 J45.30 stable - cont meds/inhal ers as dir Hyperlipidemia 49686338 E78.5 Tinnitus of right ear 48 26640023 108 H93.11 int - rec ambient noise - soft music in background 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 [address] 08/14/2024 13:57:18 08/14/2024 14:45:28 Anxiety 36509400 F41.9 increased d/t health issues above - encouraged pt to cont to f/u c therapist, and will check griselda/phq next wk 6.28.23 - increased anxiety lately, moderate on griselda - his dad is a clinical psychologi st - he rec consider zoloft == rec in future if clinically worse (pt declines zoloft today), strongly encouraged pt to call [address] [place] [address] to see a therapist - handout provided, see below 11.24 - stable/no panic attack lately, infrequent use of prn benzo 1.25 - cont f/u c therapist q o week, cont f/u c marriage counsellor wklyinfreq uent use of prn benzosee below Moderate m ajor depression, single episode 98540626 F32.1 see above - his father has tolerated zoloft, will give trial of this - start c 1/2 tab first wk then advance to full tab qd as dir [id number] Kulwinder Darling MD Telehealt h [address] [facility] [address] [place] [address] 09/24/2024 13:02:25 09/24/2024 14:45:43 Anxiety 89489312 F41.9 increased d/t health issues above - encouraged pt to cont to f/u c therapist, and will check griselda/phq next wk 6.28.23 - increased anxiety lately, moderate on griselda - his dad is a clinical psychologi st - he rec consider zoloft == rec in future if clinically worse (pt declines zoloft today), strongly encouraged pt to call [facility] to see a therapist - handout provided, see below 11.24 - stable/no panic attack lately, infrequent use of prn benzo 1.25 - cont f/u c therapist q o week, cont f/u c marriage counsellor wklyinfreq uent use of prn benzosee below 3.25 - pt tolerating sertraline 25mg - scored lower on griselda/phq, but doesn't feel 'good' == rec increase to 50mg qd Panic attack 113161412 F 41.0 no help c prn hydroxyzin e last year, his dad rec prn ativan - reviewed risks/bene fits, pt aware of addictive potential, will only take prn panic attack 3.25 - pt requested refill - rarely uses [id number] Kulwidner Darling MD Main Office [address] [facility] [address] [place] [address] 03/19/2025 10:17:46 03/19/2025 12:01:39 Anxiety 66061283 F41.9 increased d/t health issues above - encouraged pt to cont to f/u c therapist, and will check griselda/phq next wk 6.28.23 - increased anxiety lately, moderate on griselda - his dad is a clinical psychologi st - he rec consider zoloft == rec in future if clinically worse (pt declines zoloft today), strongly encouraged pt to call [address] [place] [address] to see a therapist - handout provided, [...] states will discuss further c his therapist Lesion of skin of face 6576718923 06 L98.9 will get derm eval Vitamin D deficiency 347 91692 E55.9 Liver enzy mes level above reference range 578299532 R74.8 565741 Acute viral disease 4096 26088 B34.9 37128968 pt's has covid - pt developed runny nose & sneezing - ? viral vs allergy sxs ---pt tested yesterday at home - negative for covidlung exam normal todaycont supportive careRTC if worse / no better [id number] Kulwinder Darling MD Main Office [address] [facility] [address] [place] [address] 06/23/2025 10:51:22 06/23/2025 12:07:01 Adult health examination 580658249 Z00.00 Influenza vaccination declined 490870945 Z28.21 27910152 Mild persi stent asthma 380654616 J45.30 stable - cont meds/inhal ers as dir 12.25 - was at ER recently - seen by pulm - better on breo x 1 wk, pending pft on 07.11.25no need for prn alb latelydepe nding on RAST testing, may consider montelukas t in future Hyperlipidemia 39512246 E78.49 1628204 rec low carb diet to lower trigs, and decrease your red meat & cheese intake to lower your LDL (bad chol) Fatigue 68781423 R53.83 8485243 Abrasion a nd/or friction burn of skin 306156400 T14.8XXA 638017 tip of penis x past week - from copper wire of partner's iud that loosened / changed position- slowly getting better, but not resolved c triple abx - change to mupirocin Panic attack 236153893 F 41.0 no help c prn hydroxyzin e last year, his dad rec prn ativan - reviewed risks/bene fits, pt aware of addictive potential, will only take prn panic attack 3.25 - pt requested refill - rarely uses 12.25 - pt has used prn 1mg lately - just refilled recently - feeling better, but would still like to have just in case Anxiety 40920024 F41.9 increased d/t health issues above - encouraged pt to cont to f/u c therapist, and will check griselda/phq next wk 6.28.23 - increased anxiety lately, moderate on griselda - his dad is a clinical psychologi st - he rec consider zoloft == rec in future if clinically worse (pt declines zoloft today), strongly encouraged pt to call [facility] to see a therapist - handout provided, [...] 12.25 - griselda/phq stable - see above [id number] Kulwinder Darling MD Telehealt h [address] [facility] [address] [place] [address] 07/08/2025 12:51:59 07/08/2025 14:48:02 Anxiety 20561655 F41.9 increased d/t health issues above - encouraged pt to cont to f/u c therapist, and will check griselda/phq next wk 6.28.23 - increased anxiety lately, moderate on griselda - his dad is a clinical psychologi st - he rec consider zoloft == rec in future if clinically worse (pt declines zoloft today), strongly encouraged pt to call [facility] to see a therapist - handout provided, [...] then increase to 10mg qd Panic attack 235909216 F 41.0 no help c prn hydroxyzin [...] LastModified Time None Recorded Advance Directives Directive Y: HCP Payers Insurance Date Sequence Insurance Name Policy Number Policy Andres Covered Member ID Andres Member ID Guarantor Name 08/19/2019 1 [place] [facility] Michael Bo [id number] Michael Bo 07/18/2018 1 [facility] R[facility] [id number] Michael Bo [id number] Michael Bo 09/13/2016 1 [facility] [id number] Michael Villalta Betzy [id number] Michael Bo 07/08/2025 1 [facility] [id number] Terry Bo [id number] Michael Bo Notes Date Note Type Note Provider Name and Address Organization Details Recorded Time 08/14/2024 text/html Anxiety/Depressi onRepo rted by PatientHPIFor quality, patient reportsmood worseandincreased anxiety. For context, patient reportsmajor life stressors,family problems, andrelationship stress. For severity, patient reportsdenies suicidal ideations. For associated symptoms, patient reportsdenies homicidal ideations. Pt has been feeling depressed for a year,course is worsening.Pt works with a therapist bi monthly. rev last pe 11.24 - h/o anxiety - he has declined zoloft in pastinfrequent use of prn benzoreviewed pt's h/o griselda/phq trend - increased phq > griselda from last ov Song Grant PA-C [address], [address], [facility] [place] 08/14/2024 14:49:02 09/24/2024 text/html Anxiety/Depressi onRepo rted by PatientHPIFor context, patient reportsmajor life stressors,family problems, andrelationship stress. For severity, patient reportsdenies suicidal ideations. For associated symptoms, patient reportsdenies homicidal ideations. For quality, (~ the same). Pt has been feeling depressed for a year,course is worsening.Pt works with a therapist bi monthly. rev last pe 11.24 - h/o anxiety - he has declined zoloft in pastinfrequent use of prn benzoreviewed pt's h/o griselda/phq trend - increased phq > griselda from last ov 3.4.25 - pt tolerating sertraline 25mg - scored lower on griselda/phq, but doesn't feel 'good' Tatyana lyn, [facility] [place] 10/24/2024 16:07:47 03/19/2025 text/html 1. Patient reports has a lump/bump under the chin and is requesting dermatology referral in [place] Keara Jang.2.Lorazepam- Patient feels the .05mg is not affective and at times will take 2 tabs which seems to help much better.3. with Covid. Patient reports yesterday he developed runny nose and sneezing, He is unsure if allergy related. Performed Covid test yesterday which was negative. Denies any other symptoms. as per recent pt case:I have a skin lesion on my lower cheek that has changed in appearance. I m concerned that this may be skin cancer. I contacted patient care director Beverley Jang MD in [place] for an appointment but was told I needed a referral from my primary in order to be given an urgent appointment as they have no appointments available now for new patients. Please send referral to Dr. Jang. Thank you. Song Grant PA-C [address], [address], [facility] [place] 03/24/2025 13:17:03 06/23/2025 text/html Generic HPI TemplateReported by Patient here for annual pe. Tatyana lyn, [facility] 06/24/2025 13:45:19 07/08/2025 text/html Anxiety/Depressi onRepo rted by PatientHPIFor quality, patient reportsincreased anxietyandpanic symptoms (better lately - no use of prn benzo in > 1.5 wks). For context, patient reportsmajor life stressors. For severity, patient reportsdenies suicidal ideations. For associated symptoms, patient reportsdenies homicidal ideations. Song Grant PA-C [address] [address], [place], [address], [facility] 07/08/2025 14:06:44
--- OUTSIDE RECORDS SUMMARY | 2025-07-11 07:15 | XMS_ITS | Continuity of Care Document ---
Author Organization [facility], Main Office Address [address] [facility] [address] [place] [address] Care Team Providers Care Dispatcher Motor Vehicle Name Role Phone JUANITA SONG Primary Care Provider JOSE LUIS TAYLOR Referring Provider Assessment No assessment recorded. Plan of Treatment Reminders Order Date Submit Date Provider Last Modified By Organization Details Last Modified Time Details Appointments None recorded. Lab lipid panel, serum 2024 025 DEAN [facility] (Centralized Electronic Ordering - All Locations), Patient Can Go To The Location Of Their Choice, [id number] 11:45:12 CMP, serum or plasma 2024 025 DEAN [facility] (Centralized Electronic Ordering - All Locations), Patient Can Go To The Location Of Their Choice, [address] 11:45:12 TSH, ultra-sens itive, serum 2024 025 DEAN [facility] (Centralized Electronic Ordering - All Locations), Patient Can Go To The Location Of Their Choice, [address] 11:56:59 Referral None recorded. Procedures None recorded. Surgeries None recorded. Imaging None recorded. Medication Orders mupirocin 2 % topical ointment 2024 025 [facility]/Pharmacy #[id number], [address] [place], [address], 11:56:59 lorazepam 0.5 mg tablet 2024 025 [email or web address] [facility]/Pharmacy #[id number], [address] [place], [address], 13:15:37 Patient TargetsNo targets recorded. Patient Instructions Encounter Date Encounter Id Patient Instructions Last Modified By Organization Details Last Modified Time 06/23/2025 [id number] Well Visit, Ages 18 to 65: Care Instructions [email or web address] Not available 06/24/2025 12:15:13 Medications (OTC , herbal therapies, supplements) reviewed and reconciled with patient and or caregiver, including potential side effects, drug interactions, instructions, and the consequences of not taking medication. Reviewed potential barriers to medication adherence, such as side effects from medication or cost of medication. pmadden Not available 06/23/2025 11:45:07 Reason for Referral None Reported. Results Created Date Observation Date Name Description Value Unit Range Abnormal Flag Note LastModifiedBy Organization Detail LastModifiedTime 05/25/2005/25/2025 XR, chest , 2 view No observ ation record ed. [facility] (Medical Records) [address] [place], [address], 06/23/2025 11:19:38 05/26/20 25 05/26/2025 CT, angio gram, chest , w/ contr ast No observ ation record ed. [facility] (Medical Records) [address] [place], [address], 06/23/2025 11:19:38 05/26/20 25 05/26/2025 CT, angio gram, chest , w/ contr ast No observ ation record ed. [facility] (Medical Records) [address] [place], [address], 06/23/2025 11:19:38 Result Notes None recorded. Problems Name Problem SNOMED Code Status Onset Date Resolution Date Notes Provider Name and Address Organization Details Recorded Time Asthma 205196567 Completed 201611/23/2022 Song Zhang PA-C [address] [facility] [address], [place], [address], [facility] 3 11:39:45 Attention deficit hyperacti vity disorder, predomina ntly inattenti ve type 74205051 Completed 201911/23/2022 Song Zhang PA-C [address], [place], [address], [facility] 3 11:38:48 Chronic urticaria 66149309 Completed 201906/19/2024 Song Zhang PA-C [address], [place], [address], [facility] 4 15:00:02 Mild major depressio n, single episode 71702614 Completed 202111/23/2022 Song Zhang PA-C [address], [place], [address], [facility] 3 11:38:51 Situation al panic attack 336488610 Completed 202111/23/2022 Song Zhang PA-C [address], [place], [address], [facility] 3 11:38:59 Anxiety 32239490 Completed 202111/23/2022 Song Zhang PA-C [address], [place], [address], [facility] 3 09:59:13 Mild persisten t asthma 256609516 Active 2022 Song Zhang PA-C [address], [place], [address], [facility] 3 11:39:37 Allergic conjuncti vitis of bilateral eyes 582856717458 102 Completed 202206/19/2024 Song Zhang PA-C [address], [place], [address], [facility] 4 15:00:07 Anxiety 99284899 Active 2022 Song Zhang PA-C [address], [place], [address], [facility] 3 09:59:13 Panic attack 488482044 Active 2022 Song Zhang PA-C [address], [place], [address], [facility] 3 14:58:18 Testicula r microlith iasis 191216899424 108 Active 2023 Angelika Edmond MD [address], [facility] [place], [address], [facility] 4 13:51:16 Tinnitus of right ear 809926557173 8 Active 2023 Song Zhang PA-C [address], [place], [address], [facility] 4 15:01:07 Vitamin D deficienc y 75679879 Active 2024 Song Zhang PA-C [address], [place], [address], [facility] 5 16:08:58 Problem Notes None recorded. Procedures Surgical History Date Name Laterality Status Provider Name and Address Organization Details Recorded Time 05/26/[address] angiography of chest with contrast completed Lisa Carballo [facility] 06/03/2025 13:30:01 07/24/19 00 Appendectomy completed Araseli Fontenot [facility] 04/06/2020 14:04:19 Imaging Results None recorded. Procedure Notes None recorded. Medical Equipment None Reported. Allergies Allergen ID Allergen Name Allergen Category Reaction Reaction Severity Criticality Documentation Date Start Date Code Code System Note Provider Name and Address Organization Details Recorded Time 01036 Ceclor CD medicatio n hives severe Not available 09/13/2016 12270 1 RxNorm JAMES [facility], [facility] 7 12:58:16 91046 Levaquin medicatio n vasculiti s severe Not available 09/13/2016 03495 2 RxNorm JAMES Riojas, [facility] 7 12:58:16 06371 fluticaso ne / salmetero l medicatio n rash severe Not available 09/13/2016 24111 5 RxNorm no probl ems c using proai r Song GLEZ-C [address] [facility] [address] [address], [facility] 8 14:40:06 62584 Claritin medicatio n other severe Not available 09/13/201665473 6 RxNorm JAMES Riojas, [facility] 7 12:58:16 74118 cefaclor medicatio n rash Not available Not available 07/02/20252024 2176 RxNorm Not Available [employer] - prod 14:11:55 76567 levofloxa dot medicatio n anaphylax is Not available Not available 07/02/20252024 68799 RxNorm Not Available [employer] - prod 14:11:55 46331 loratadin e medicatio n anaphylax is Not available Not available 07/02/20252024 80710 RxNorm Not Available [employer] - RedT 14:11:55 Medications Name Sig Start Date Stop [...] Updated DateTime 5 181.61 cm 22.6 kg/m2 33743.1 5 g 65 /min 99 % 98.7 [degF] 130/83 mm[Hg] Mitali Ocampo [place] [facility] 5 10:58:04 Social History Question Answer Notes LastModified by Organizat ion Details LastModified Time Tobacco Smoking Status [facility] [place] 09/13/2016 12:58:17 Do You Have An Advance Directive? Yes HCP [email or web address] Information not available 01/13/2022 Is Blood Transfusion Acceptable In An Emergency? Yes Information not available 09/13/2016 What Is Your Level Of Caffeine Consumption? Moderate [email or web address] Information not available 04/06/2020 How Much Tobacco Do You Chew? None [email or web address] Information not available 04/06/2020 In The 14 Days Before Symptom Onset, Have You Had Close Contact With A Laboratory-confi rmed COVID-19 While That Case Was Ill? No [email or web address] Information not available 01/13/2022 In The 14 Days Before Symptom Onset, Have You Had Close Contact With A Person Who Is Under Investigation For COVID-19 While That Person Was Ill? No [email or web address] Information not available 01/13/2022 Have You Been To An Area Known To Be High Risk For COVID-19? No [email or web address] Information not available 01/13/2022 What Type Of [...] Do You Use Protection During Sex? No [email or web address] Information not available 04/06/2020 Do You Use Your Seat Belt Or Car Seat Routinely? Yes Information not available 12/24/2021 Seat Belts Used Routinely Yes [email or web address] Information not available 01/13/2022 Are You Sexually Active? Yes Information not available 09/13/2016 Smoke Alarm In Home Yes [email or web address] Information not available 01/13/2022 Do You Have Smoke And Carbon Monoxide Detectors In Your Home? Yes [email or web address] Information not available 12/24/2021 At What Age [...] independently without assistance or assistive devices? YESWOREST [email or web address] Information not available 01/13/2022 Are you able to care for yourself independently? 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 Never used electronic cigarettes [email or web address] Information not available 01/13/2022 What is your exercise level? None Information not available 06/19/2024 Mental Status None recorded. Family History Relationship Description Onset Age of this Age Resolved Age Notes LastModified by Organization Details LastModified Time Mother Asthma [email or web address] Not available 09/13/2016 12:58:16 Mother Anxiety disorder [email or web address] Not available 12/24 14:38:18 Notes:no fh CRC, ? if dad roblero d P Ca Medical History Condition Response Other N Gout N Blood Diseases N Kidney Stones N Hyperthyroidism N Breast Cancer N Lung Disease N COPD N Depression N Hypothyroidism N Defects or Inherited Disease [...] Problems N GI Problems N Acne N Skin Problems N Eating Disorder N Anemia N Constipation N Bladder Problems N Mental Illness N Ovarian Cancer N Diabetes N Blood Transfusions N Seizures/Epilepsy N Tuberculosis N AIDS/HIV N Congestive Heart Failure (CHF) N Eczema N Diverticulitis N Abuse/Domestic Violence N Allergies Y Asthma Y Reflux/GERD N Hepatitis N Pulmonary Embolism N Hypertension N Osteoporosis N Chicken Pox N Autism Spectrum Disorder (ASD) N Immunizations Vaccine Type Date Status Note Provider Name and Address Organization Details Recorded Time COVID-19, mRNA, LNP-S, PF, 30 mcg/0.3 mL dose 10/16/19 21 completed Not Available [facility] 09/14/2022 19:23:47 COVID-19, mRNA, LNP-S, PF, 30 mcg/0.3 mL dose 11/07/19 21 completed Not Available [facility] 09/14/2022 19:23:47 COVID-19, mRNA, LNP-S, PF, 30 mcg/0.3 mL dose 05/14/20 21 completed Not Available [facility] 09/14/2022 19:23:47 COVID-19, mRNA, LNP-S, bivalent, PF, 30 mcg/0.3 mL dose 05/27/20 22 completed JAMES Olivarez [facility] 11/23/2022 10:38:03 Influenza, split virus, quadrivalent, PF 07/15/20 22 completed JAMES Olivarez [facility] 11/23/2022 10:38:03 COVID-19, mRNA, LNP-S, PF, alyl-sucrose, 30 mcg/0.3 mL 04/23/20 24 completed JAMES Olivarez [facility] 06/19/2024 14:27:46 Influenza, split virus, trivalent, PF 05/17/20 24 completed JAMES Olivarez [facility] 06/19/2024 14:27:46 Influenza, split virus, quadrivalent, PF 04/06/20 20 completed Araseli lyn, [facility] 04/06/2020 14:19:35 Td (adult), 2 Lf tetanus toxoid, preservative free, adsorbed 04/06/20 20 cancelled patient objection Song Zhang PA-C [address] [facility] [address], [place], [address], [facility] 04/06/2020 14:58:30 Influenza, split virus, quadrivalent, PF 06/30/20 21 completed JAMES Michael, [facility] 06/30/2021 14:58:21 Tdap 06/30/20 21 completed JAMES Michael, [facility] 06/30/2021 14:58:21 Past Encounters Encounter ID Performer Location Encounter Start Date Encounter Closed Date Diagnosis/Indication Diagnosis SNOMED-CT Code Diagnosis ICD10 Code Diagnosis IMO Codes Diagnosis Note [id number] Kulwinder Darling MD Main Office [address] [facility] [address] [place] [address] 06/23/2025 10:51:22 06/23/2025 12:07:01 Adult health examination 761318699 Z00.00 Influenza vaccination declined 941174015 Z28.21 92384747 Mild persi stent asthma 556451677 J45.30 stable - cont meds/inhal ers as dir 07.17 - was at ER recently - seen by pulm - better on breo x 1 wk, pending pft on 07.11.25no need for prn alb latelydepe nding on RAST testing, may consider montelukas t in future Hyperlipidemia 52785959 E78.49 7658571 rec low carb diet to lower trigs, and decrease your red meat & cheese intake to lower your LDL (bad chol) Fatigue 00219356 R53.83 4985836 Abrasion a nd/or friction burn of skin 187621175 T14.8XXA 027988 tip of penis x past week - from copper wire of partner's iud that loosened / changed position- slowly getting better, but not resolved c triple abx - change to mupirocin Panic attack 706428118 F 39.0 no help c prn hydroxyzin e last year, his dad rec prn ativan - reviewed risks/bene fits, pt aware of addictive potential, will only take prn panic attack 3.25 - pt requested refill - rarely uses 12.25 - pt has used prn 1mg lately - just refilled recently - feeling better, but would still like to have just in case Anxiety 54880298 F41.9 increased d/t health issues above - encouraged pt to cont to f/u c therapist, and will check griselda/phq next wk 6.28.23 - increased anxiety lately, moderate on griselda - his dad is a clinical psychologi st - he rec consider zoloft == rec in future if clinically worse (pt declines zoloft today), strongly encouraged pt to call [address] [place], [place] [address] to see a therapist - handout provided, [...] 12.25 - griselda/phq stable - see above Health Concerns Section Related Observation LastModified by Organization Detai ls LastModified Time None Recorded Concern Status LastModified by Organization Details LastModified Time None Recorded Payers Encounter Date Sequence Insurance Name Policy Number Policy Andres Covered Member ID Andres Member ID Guarantor Name 06/23/2025 1 [employer] [facility] [place] ([facility] [id number] 1 Terry Bo [id number] Michael Bo Notes Date Note Type Note Provider Name and Address Organization Details Recorded Time 06/23/2025 text/html Generic HPI TemplateReported by Patient here for annual pe. Tatyana lyn [place] - [facility] 06/24/2025 13:45:19
--- NOTE | 2025-07-11 07:28 | PFT_ITS ---
Flows: FEV1: 60 % of predicted at 2.73 L FVC: 89 % of predicted at 5.04 L FEV1/FVC: 54 % Bronchodilator response: Absent Volumes: Total lung capacity: 101 % of predicted at 7.73 L Residual volume: 160 % of predicted at 2.70 L Slow vital capacity: 84 % of predicted at 5.04 L Expiratory reserve volume: 101 % of predicted at 1.83 L Diffusion capacity: Mildly decreased Impression: Moderate obstructive ventilatory defect with no bronchodilator response. Increased residual volume suggests air trapping. Decreased diffusion capacity suggests emphysema. MTDD
[2025-07-11 08:03] VITALS: PULSE 74
== END 2025-07-11 07:13 | disposition home or self-care (01) ==
LOC: HO.RESP 07:12
PROVIDERS: PCP Physician Assistant Medical; Visit Provider Internal Medicine Pulmonary Disease
DX: J96.01 Acute respiratory failure with hypoxia (principal); Z87.891 Personal history of nicotine dependence
CPT/HCPCS: 94060; 94640; 94727; 94729

== ENCOUNTER → 2025-07-11 07:28 | Outpatient (BNV) | payer OTHER, SELFPAY | PROVIDERS: PCP Physician Assistant Medical; Visit Provider Internal Medicine Pulmonary Disease | DX: J96.01 Acute respiratory failure with hypoxia (principal) | CPT/HCPCS: 94060; 94727; 94729 ==

== ENCOUNTER 2025-07-22 10:44 | Outpatient (AMB) | payer OTHER, SELFPAY ==
[2025-07-22 10:54] VITALS: BP 128/82; PULSE 77; O2SAT 99; BMI 23.7
--- NOTE | 2025-07-22 10:54 | A.OFFVIS_ITS ---
Vital Signs 07/22/25 10:54 Height 6 ft Weight 175 lb BMI 23.7 BP 128/82 Blood Pressure Location Rt brachial Position Sitting Pulse 77 Pulse Source Pulse Oximeter Pulse Oximetry (%) 99 Oxygen Delivery Method Room Air Intake Visit Reasons: Asthma/PFT Follow Up Allergies cefaclor (From Ceclor) Allergy (Verified 07/22/25 11:00) Rash levofloxacin (From Levaquin) Allergy (Verified 07/22/25 11:00) Anaphylaxis loratadine (From Claritin) Allergy (Verified 07/22/25 11:00) Anaphylaxis fluticasone (From Advair Diskus) Adverse Reaction (Severe, Verified 07/22/25 11:00) rash salmeterol (From Advair Diskus) Adverse Reaction (Severe, Verified 07/22/25 11:00) rash HPI HPI Asthma/PFT Follow Up: Details: 35-year-old gentleman with underlying history of asthma requiring prior hospitalizations, but never intubations, now followed for moderate persistent asthma. At the last office visit patient was started on Breo with good response and now states that his symptoms are well controlled. He rarely requires his albuterol MDI. He did finish his pulmonary function test. [facility] Medical History (Updated 06/17/25 @ 11:28 by Brennan Denis MD) Asthma Tachycardia Family History Mother TIA (transient ischemic attack) PFO (patent foramen ovale) Atrial septal aneurysm Social History Household Members: Spouse Housing: House Do you presently have visiting nurse or other home services: No Alcohol intake: current Alcohol intake frequency: holidays/special occasions only Patient Tobacco Use Status: Former Tobacco user Tobacco use type: Smokeless Tobacco Substance Use Type: Marijuana service: No Review of Systems Card Denies dyspnea Resp Denies cough, Denies hemoptysis, Denies excessive phlegm production, Denies dyspnea and Denies wheezing Musc Denies joint swelling Aller/Immun Denies wheezing Physical Exam Vital Signs: Last Vital Signs Pulse 77 07/22/25 10:54 BP 128/82 07/22/25 10:54 Pulse Ox 99 07/22/25 10:54 Oxygen Delivery Method Room Air 07/22/25 10:54 BMI result Body Mass Index 23.7 Const General: no acute distress and alert Nutritional Appearance: not obese Orientation/consciousness: Other orientation findings ( oriented) HEENT Head: Yes atraumatic Eyes General: appearance normal, both eyes and all related structures Sclerae: sclerae normal EOM: EOMs intact bilaterally Neck Neck: Yes supple Lymphatic: no lymphadenopathy noted Resp Effort & Inspection: normal respiratory effort and no use of accessory muscles Auscultation: clear to auscultation bilaterally Cardio Rate: regular rate Rhythm: regular rhythm Heart sounds: no gallops, no murmurs and no rubs Skin General skin exam: other ( warm) Extrem General: No clubbing, No cyanosis and No edema Assessment & Plan Assessment & Plan (1) Asthma: Code(s): J45.909 - Unspecified asthma, uncomplicated Category: Medical Plan: Results of pulmonary function test reviewed, underlying moderate obstructive ventilatory defect. Well controlled on current regimen of Breo and albuterol MDI. Continue current regimen. (2) Environmental allergies: Code(s): Z91.09 - Other allergy status, other than to drugs and biological substances Category: Medical Plan: Results of RAST and IgE level testing are pending. Coding Level of Care Code Est Pt Level 4 (53636) Diagnoses Asthma J45.909 Environmental allergies Z91.09
== END 2025-07-22 11:09 | disposition home or self-care (01) ==
LOC: HO.HPS 10:45
PROVIDERS: PCP Physician Assistant Medical; Visit Provider Internal Medicine Pulmonary Disease
DX: J45.909 Unspecified asthma, uncomplicated (principal); Z91.09 Other allergy status, other than to drugs and biological substances
CPT/HCPCS: 99214

== ENCOUNTER 2025-07-22 10:44 | Outpatient (REF) | payer OTHER, SELFPAY ==
[2025-07-22 11:25] LABS: MANUAL DIFF FLAG NO
[2025-07-22 11:41] LABS: Hematocrit 44.5 % (42.0-52.0); Hemoglobin 15.4 g/dl (14.0-18.0); Imm Gran Abs Auto 0.11 X10*3/uL (0.00-0.03); Imm Gran Pct Auto 1.3 % (0.0-0.4); Lymphocytes Absolute Auto 2.5 X10*3/uL (1.2-4.9); Mean Corpuscular HGB Conc 34.6 g/dl (31.0-36.0); Mean Corpuscular Hemoglobin 29.4 pg (27.0-33.0); Mean Corpuscular Volume 85.1 fL (80.0-98.0); NRBC Abs Auto 0.000 X10*3/uL (0.0-0.012); NRBC Pct Auto 0.0 /100WBC (0.0-0.2); Platelet Count 214 X10*3/uL (160-400); Red Blood Count 5.23 X10*6/uL (4.60-5.80); White Blood Count 8.4 X10*3/uL (4.8-10.8)
--- OUTSIDE RECORDS SUMMARY | 2025-07-22 15:13 | XMS_ITS | Data Portability ---
Author Organization [facility], [address] Address [address] [place] [address] Assessment No assessment recorded. Plan of Treatment [...] Updated DateTime 3 182.88 cm 25.1 kg/m2 00058.5 9 g 22 /min 100.4 [degF] 122 /min 96 % 134/94 mm[Hg] HELENA [facility] 3 09:43:31 Social History None recorded. Functional Status None recorded. Mental Status None recorded. Family History Nothing Reported. Medical History No medical history recorded. Past Encounters Encounter ID Performer Location Encounter Start Date Encounter Closed Date Diagnosis/Indication Diagnosis SNOMED-CT Code Diagnosis ICD10 Code Diagnosis IMO Codes Diagnosis Note [id number] [address] [address] [place] [address] 07/26/2019 16:04:04 07/26/2019 17:03:43 [id number] [address] [address] [place] [address] 07/23/2017 08:15:11 07/23/2017 08:55:14 [id number] [address] [place] [address] 06/30/2021 10:30:16 06/30/2021 11:25:07 [id number] [address] [place] [address] 03/12/2015 19:38:16 03/12/2015 20:43:43 [id number] [address] [place] [address] 11/07/2021 11:26:46 11/07/2021 12:52:19 [id number] Damion 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 [address] [place] [address] 01/05/2023 09:37:35 01/05/2023 10:01:51 Left without being seen 7707244052 9102 Z53.21 Health Concerns Section Related Observation LastModified by Organization Detai ls LastModified Time None Recorded Concern Status LastModified by Organization Details LastModified Time None Recorded Advance Directives Directive None Recorded Payers Insurance Date Sequence Insurance Name Policy Number Policy Andres Covered Member ID Andres Member ID Guarantor Name 01/05/2023 1 [facility] [id number] Michael Bo [id number] Michael Bo
--- OUTSIDE RECORDS SUMMARY | 2025-07-22 15:13 | XMS_ITS | Continuity of Care Document ---
Author Organization [facility], Main Office Address [address] [facility] [address] [place] [address] Care Team Providers Care Practice Physician Name Role Phone JUANITA SONG Primary Care Provider JOSE LUIS TAYLOR Referring Provider [phone] Assessment No assessment recorded. Plan of Treatment Reminders Order Date Submit Date Provider Last Modified By Organization Details Last Modified Time Details Appointments None recorded. Lab lipid panel, serum 2024 025 DEAN [facility] (Centralized Electronic Ordering - All Locations), Patient Can Go To The Location Of Their Choice, [address] 11:45:12 CMP, serum or plasma 2024 025 DEAN [facility] (Centralized Electronic Ordering - All Locations), Patient Can Go To The Location Of Their Choice, [address] 11:45:12 TSH, ultra-sens itive, serum 2024 025 DEAN [facility] (Centralized Electronic Ordering - All Locations), Patient Can Go To The Location Of Their Choice, [address] 11:56:59 Referral None recorded. Procedures None recorded. Surgeries None recorded. Imaging None recorded. Medication Orders mupirocin 2 % topical ointment 2024 025 [facility] #[id number], [address] [place], [address], 11:56:59 lorazepam 0.5 mg tablet 2024 025 [email or web address] [facility]/Pharmacy #[id number], [address] [place], [address], 13:15:37 Patient TargetsNo targets recorded. Patient Instructions Encounter Date Encounter Id Patient Instructions Last Modified By Organization Details Last Modified Time 06/23/2025 [id number] Well Visit, Ages 18 to 65: Care [...] 2 view No observ ation record ed. [facility] (Medical Records) [address] [place], [address], 06/23/2025 11:19:38 05/26/20 25 05/26/2025 CT, angio gram, chest , w/ contr ast No observ ation record ed. [facility] (Medical Records) [address] [place], [address], 06/23/2025 11:19:38 05/26/20 25 05/26/2025 CT, angio gram, chest , w/ contr ast No observ ation record ed. [facility] (Medical Records) [address] [place], [address], 06/23/2025 11:19:38 Result Notes None recorded. Problems Name Problem SNOMED Code Status Onset Date Resolution Date Notes Provider Name and Address Organization Details Recorded Time Asthma 171064662 Completed 201611/23/2022 Song Zhang PA-C [address] [facility] [address], [place], [address], [facility] 3 11:39:45 Attention deficit hyperacti vity disorder, predomina ntly inattenti ve type 84473136 Completed 201911/23/2022 Song Zhang PA-C [address], [place], [address], [facility] 3 11:38:48 Chronic urticaria 51351826 Completed 201906/19/2024 Song Zhang PA-C [address], [place], [address], [facility] 4 15:00:02 Mild major depressio n, single episode 20157923 Completed 202111/23/2022 Song Zhang PA-C [address], [place], [address], [facility] 3 11:38:51 Situation al panic attack 258832160 Completed 202111/23/2022 Song Zhang PA-C [address], [place], [address], [facility] 3 11:38:59 Anxiety 61290430 Completed 202111/23/2022 Song Zhang PA-C [address], [place], [address], [facility] 3 09:59:13 Mild persisten t asthma 773607114 Active 2022 Song Zhang PA-C [address], [place], [address], [facility] 3 11:39:37 Allergic conjuncti vitis of bilateral eyes 712418232157 102 Completed 202206/19/2024 Song Zhang PA-C [address], [place], [address], [facility] 4 15:00:07 Anxiety 87826466 Active 2022 Song Zhang PA-C [address], [place], [address], [facility] 3 09:59:13 Panic attack 759742720 Active 2022 Song Zhang PA-C [address], [place], [address], [facility] 3 14:58:18 Testicula r microlith iasis 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 Procedures Surgical History Date Name Laterality Status Provider Name and Address Organization Details Recorded Time 05/26/[address] angiography of chest with contrast completed Lisa Carballo [facility] 06/03/2025 13:30:01 07/24/19 00 Appendectomy completed Araseli Fontenot [facility] 04/06/2020 14:04:19 Imaging Results None recorded. Procedure Notes None recorded. Medical Equipment None Reported. Allergies Allergen ID Allergen Name Allergen Category Reaction Reaction Severity Criticality Documentation Date Start Date Code Code System Note Provider Name and Address Organization Details Recorded Time 84735 Ceclor CD medicatio n hives severe Not available 09/13/2016 14559 1 Rx[facility] 12:58:16 85494 Levaquin medicatio n vasculiti s severe Not available 09/13/2016 59176 2 RxNorm JAMES Riojas, [facility] 7 12:58:16 25174 fluticaso ne / salmetero l medicatio n rash severe Not available 09/13/2016 57905 5 RxNorm no probl ems c using proai r Song GLEZ-C [address] [facility] [address] [address], [facility] 8 14:40:06 46156 Claritin medicatio n other severe Not available 09/13/201602073 6 RxNorm JAMES Riojas, [facility] 7 12:58:16 49830 cefaclor medicatio n rash Not available Not available 07/02/20252024 2176 RxNorm Not Available [employer] - prod 14:11:55 93298 levofloxa dot medicatio n anaphylax is Not available Not available 07/02/20252024 58428 RxNorm Not Available [employer] - prod 14:11:55 16559 loratadin e medicatio n anaphylax is Not available Not available 07/02/20252024 13063 RxNorm Not Available [employer] 14:11:55 Medications Name Sig Start Date Stop [...] Updated DateTime 5 181.61 cm 22.6 kg/m2 39739.1 5 g 65 /min 99 % 98.7 [degF] 130/83 mm[Hg] Mitali Ocampo MA [facility] 5 10:58:04 Social History Question Answer Notes LastModified by Organizat ion Details LastModified Time Tobacco Smoking Status [facility] 09/13/2016 12:58:17 Do You Have An Advance Directive? Yes HCP Information not available 01/13/2022 Is Blood Transfusion Acceptable In An Emergency? Yes Information not available 09/13/2016 What Is Your Level Of Caffeine Consumption? Moderate Information not available 04/06/2020 How Much Tobacco Do You Chew? None [email or web address] Information not available 04/06/2020 In The 14 Days Before Symptom Onset, Have You Had Close Contact With A Laboratory-confi rmed COVID-19 While That Case Was Ill? No [email or web address] Information not available 01/13/2022 In The 14 Days Before Symptom Onset, Have You Had Close Contact With A Person Who Is Under Investigation For COVID-19 While That Person Was Ill? No [email or web address] Information not available 01/13/2022 Have You Been To An Area Known To Be High Risk For COVID-19? No [email or web address] Information not available 01/13/2022 What Type Of [...] How Many Children Do You Have? 0 [email or web address] Information not available 12/24/2021 Do You Use Protection During Sex? No [email or web address] Information not available 04/06/2020 Do You Use Your Seat Belt Or Car Seat Routinely? Yes [email or web address] Information not available 12/24/2021 Seat Belts Used Routinely Yes [email or web address] Information not available 01/13/2022 Are You Sexually Active? Yes Information not available 09/13/2016 Smoke Alarm In Home Yes [email or web address] Information not available 01/13/2022 Do You Have Smoke And Carbon Monoxide Detectors In Your Home? Yes [email or web address] Information not available 12/24/2021 At What Age [...] independently without assistance or assistive devices? YESWOREST [email or web address] Information not available 01/13/2022 Are you able to care for yourself independently? 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 Never used electronic cigarettes [email or web address] Information not available 01/13/2022 What is your exercise level? None Information not available 06/19/2024 Mental Status None recorded. Family History Relationship Description Onset Age of this Age Resolved Age Notes LastModified by Organization Details LastModified Time Mother Asthma [email or web address] Not available 09/13/2016 12:58:16 Mother Anxiety disorder [email or web address] Not available 12/24 14:38:18 Notes:no fh CRC, ? if dad roblero d P Ca Medical History Condition Response Other N Gout N Kidney Stones N Blood Diseases N Hyperthyroidism N Breast Cancer N Hypothyroidism N Lung Disease N COPD N Depression N Defects or Inherited Disease N Anesthesia Complications N Headaches/Migraines Y Varicose Veins N Anxiety Disorder N Obesity N Vision or Eye Problems N Arthritis N Head Injury/Concussion Y Infertility N Polyps N Congenital Anomalies N Acid Reflux (GERD) [...] mL dose 10/16/19 21 completed Not Available [facility] 09/14/2022 19:23:47 COVID-19, mRNA, LNP-S, PF, 30 mcg/0.3 mL dose 11/07/19 21 completed Not Available [facility] 09/14/2022 19:23:47 COVID-19, mRNA, LNP-S, PF, 30 mcg/0.3 mL dose 05/14/20 21 completed Not Available [facility] 09/14/2022 19:23:47 COVID-19, mRNA, LNP-S, bivalent, PF, 30 mcg/0.3 mL dose 05/27/20 22 completed JAMES Olivarez [facility] 11/23/2022 10:38:03 Influenza, split virus, quadrivalent, PF 07/15/20 22 completed JAMES Olivarez [facility] 11/23/2022 10:38:03 COVID-19, mRNA, LNP-S, PF, ally-sucrose, 30 mcg/0.3 mL 04/23/20 24 completed JAMES Olivarez [facility] 06/19/2024 14:27:46 Influenza, split virus, trivalent, PF 05/17/20 24 completed JAMES Olivarez [facility] 06/19/2024 14:27:46 Influenza, split virus, quadrivalent, PF 04/06/20 20 completed Araseli lyn, [facility] 04/06/2020 14:19:35 Td (adult), 2 Lf tetanus toxoid, preservative free, adsorbed 04/06/20 20 cancelled patient objection Song Zhang PA-C [address] [facility] [address], [place], [address], [facility] 04/06/2020 14:58:30 Influenza, split virus, quadrivalent, PF 06/30/20 21 completed JAMES Michael, [facility] 06/30/2021 14:58:21 Tdap 06/30/20 21 completed JAMES Michael, [facility] 06/30/2021 14:58:21 Past Encounters Encounter ID Performer Location Encounter Start Date Encounter Closed Date Diagnosis/Indication Diagnosis SNOMED-CT Code Diagnosis ICD10 Code Diagnosis IMO Codes Diagnosis Note [id number] Kulwinder Darling MD Main Office [address] [facility] [address] [place] [address] 06/23/2025 10:51:22 06/23/2025 12:07:01 Adult health examination 548309215 Z00.00 Influenza vaccination declined 888833252 Z28.21 97138233 Mild persi stent asthma 970629898 J45.30 stable - cont meds/inhal ers as dir 07.17 - was at ER recently - seen by pulm - better on breo x 1 wk, pending pft on 07.11.25no need for prn alb latelydepe nding on RAST testing, may consider montelukas t in future Hyperlipidemia 69286049 E78.49 9625840 rec low carb diet to lower trigs, and decrease your red meat & cheese intake to lower your LDL (bad chol) Fatigue 18959174 R53.83 3056971 Abrasion a nd/or friction burn of skin 092969057 T14.8XXA 776452 tip of penis x past week - from copper wire of partner's iud that loosened / changed position- slowly getting better, but not resolved c triple abx - change to mupirocin Panic attack 168051825 F 39.0 no help c prn hydroxyzin e last year, his dad rec prn ativan - reviewed risks/bene fits, pt aware of addictive potential, will only take prn panic attack 3.25 - pt requested refill - rarely uses 12.25 - pt has used prn 1mg lately - just refilled recently - feeling better, but would still like to have just in case Anxiety 68487080 F41.9 increased d/t health issues above - encouraged pt to cont to f/u c therapist, and will check griselda/phq next wk 6.28.23 - increased anxiety lately, moderate on griselda - his dad is a clinical psychologi st - he rec consider zoloft == rec in future if clinically worse (pt declines zoloft today), strongly encouraged pt to call [address] [place], [place] [address]s to see a therapist - handout provided, [...] Andres Member ID Guarantor Name 06/23/2025 1 [employer] [facility] [employer] ([facility]) [id number] 1 Terry Bo [id number] Michael Bo Notes Date Note Type Note Provider Name and Address Organization Details Recorded Time 06/23/2025 text/html Generic HPI TemplateReported by Patient here for annual pe. Tatyana lyn [place] - [facility] 06/24/2025 13:45:19
--- OUTSIDE RECORDS SUMMARY | 2025-07-22 15:13 | XMS_ITS | Continuity of Care Document ---
Author Organization [facility] Address [address] [facility] [address] [place] [address] Care Team Providers Care Customs Consultant Name Role Phone JUANITA SONG Primary Care Provider [phone] JOSE LUIS TAYLOR Referring Provider Assessment Encounter Date Assessment Date Assessment LastModified by Organization Details LastModified Time 07/08/2025 07/08/2025 This service was provided [facility] The patient consented and was seen through synchronous audio and video technology. If audio only connection was used, the provider used telephone communication. Patient was located at home in the [facility]. Provider was located in the office. [...] escitalopra m 10 mg tablet 2024 025 [facility]acy #[id number], [address] [place], [address], 14:02:21 Patient TargetsNo targets recorded. Patient Instructions Encounter Date Encounter Id Patient Instructions Last Modified By Organization Details Last Modified Time 07/08/2025 [id number] Medications (OTC , herbal therapies, supplements) reviewed [...] and Address Organization Details Recorded Time Asthma [id number] Completed 201611/23/2022 Song Zhang PA-C [address] [facility] [address], [place], [address], [facility] 3 11:39:45 Attention deficit hyperacti vity disorder, predomina ntly inattenti ve type 13219143 Completed 201911/23/2022 Song Zhang PA-C [address] [facility] [address], [place], [address], [facility] 3 11:38:48 Chronic urticaria 47523706 Completed 201906/19/2024 Song Zhang PA-C [address] [facility] [address], [place], [address], [facility] 4 15:00:02 Mild major depressio n, single episode 56186157 Completed 202111/23/2022 Song Zhang PA-C [address] [facility] [address], [place], [address], [facility] 3 11:38:51 Situation al panic attack 283656728 Completed 202111/23/2022 Song Zhang PA-C [address] [facility] [address], [place], [address], [facility] 3 11:38:59 Anxiety 04497250 Completed 202111/23/2022 Song Zhang PA-C [address] [facility] [address], [place], [address], [facility] 3 09:59:13 Mild persisten t asthma 929691311 Active 2022 Song Zhang PA-C [address], [place], [address], [facility] 3 11:39:37 Allergic conjuncti vitis of bilateral eyes 349129449048 102 Completed 202206/19/2024 Song Zhang PA-C [address], [place], [address], [facility] 4 15:00:07 Anxiety 80658214 Active 2022 Song Zhang PA-C [address], [place], [address], [facility] 3 09:59:13 Panic attack 226412362 Active 2022 Song Zhang PA-C [address], [place], [address], [facility] 3 14:58:18 Testicula r microlith iasis 417017973731 108 Active 2023 Angelika Edmond MD [address], [place], [address], [facility] 4 13:51:16 Tinnitus of right ear 744813390631 8 Active 2023 Song Zhang PA-C [address], [place], [address], [facility] 4 15:01:07 Vitamin D deficienc y 27537969 Active 2024 Song Zhang PA-C [address], [place], [address], [facility] 5 16:08:58 Problem Notes None recorded. Procedures Surgical History Date Name Laterality Status Provider Name and Address Organization Details Recorded Time 05/26/[address] angiography of chest with contrast completed Lisa Carballo [facility] 06/03/2025 13:30:01 07/24/19 00 Appendectomy completed Araseli Fontenot [facility] 04/06/2020 14:04:19 Imaging Results None recorded. Procedure Notes None recorded. Medical Equipment None Reported. Allergies Allergen ID Allergen Name Allergen Category Reaction Reaction Severity Criticality Documentation Date Start Date Code Code System Note Provider Name and Address Organization Details Recorded Time 91383 Ceclor CD medicatio n hives severe Not available 09/13/2016 92453 1 RxNorm Vanesa JAMES Connors, [facility] 7 12:58:16 89840 Levaquin medicatio n vasculiti s severe Not available 09/13/201699721 2 RxNorm Vanesa JAMES Connors, [facility] 7 12:58:16 74892 fluticaso ne / salmetero l medicatio n rash severe Not available 09/13/2016 05068 5 RxNorm no probl ems c using proai r Song Zhang PA-C [address] [facility] [address], [place], [address] [place] [address] 8 14:40:06 55131 Claritin medicatio n other severe Not available 09/13/201647398 6 RxNorm Vanesa JAMES Connors, [facility] 7 12:58:16 37044 cefaclor medicatio n rash Not available Not available 07/02/20252024 2176 RxNorm Not Available [employer] - prod 14:11:55 56214 levofloxa dot medicatio n anaphylax is Not available Not available 07/02/20252024 06256 RxNorm Not Available [employer] - prod 14:11:55 52399 loratadin e medicatio n anaphylax is Not available Not available 07/02/20252024 72144 RxNorm Not Available [employer] - prod 14:11:55 Medications Name [...] 07/08/2025 181.61 cm Mitali Ocampo MA MA [facility] 07/08/2025 13:13:54 Social History Question Answer Notes LastModified by Organizat ion Details LastModified Time Tobacco Smoking Status Never Smoker JAMES Hawthorne MA [facility] 09/13/2016 12:58:17 Do You Have An Advance Directive? Yes HCP [email or web address] Information not available 01/13/2022 Is Blood Transfusion Acceptable In An Emergency? Yes Information not available 09/13/2016 What Is Your Level Of Caffeine Consumption? Moderate [email or web address] Information not available 04/06/2020 How Much Tobacco Do You Chew? None [email or web address] Information not available 04/06/2020 In The 14 Days Before Symptom Onset, Have You Had Close [facility] While That Case Was Ill? No [email or web address] Information not available 01/13/2022 In The 14 Days Before Symptom Onset, Have You Had Close Contact With A Person Who Is Under Investigation For COVID-19 While That Person Was Ill? No [email or web address] Information not available 01/13/2022 Have You Been To An Area Known To Be High Risk For COVID-19? No [email or web address] Information not available 01/13/2022 What Type Of [...] How Many Children Do You Have? 0 [email or web address] Information not available 12/24/2021 Do You Use Protection During Sex? No [email or web address] Information not available 04/06/2020 Do You Use Your Seat Belt Or Car Seat Routinely? Yes [email or web address] Information not available 12/24/2021 Seat Belts Used Routinely Yes [email or web address] Information not available 01/13/2022 Are You Sexually Active? Yes Information not available 09/13/2016 Smoke Alarm In Home Yes [email or web address] Information not available 01/13/2022 Do You Have Smoke And Carbon Monoxide Detectors In Your Home? Yes [email or web address] Information not available 12/24/2021 At What Age [...] independently without assistance or assistive devices? YESWOREST [email or web address] Information not available 01/13/2022 Are you able to care for yourself independently? Yes Information not available 09/13/2016 What is your occupation? Other [email or web address] Information not available 12/27/2024 Do you or have you ever used e-cigarettes or vape? Never used electronic cigarettes [email or web address] Information not available 01/13/2022 What is your exercise level? None Information not available 06/19/2024 Mental Status None recorded. Family History Relationship Description Onset Age of this Age Resolved Age Notes LastModified by Organization Details LastModified Time Mother Asthma [email or web address] s Not available 09/13/2016 12:58:16 Mother Anxiety disorder [email or web address] Not available 12/24 14:38:18 Notes:no fh CRC, [...] mL dose 10/16/19 21 completed Not Available [facility] 09/14/2022 19:23:47 COVID-19, mRNA, LNP-S, PF, 30 mcg/0.3 mL dose 11/07/19 21 completed Not Available [facility] 09/14/2022 19:23:47 COVID-19, mRNA, LNP-S, PF, 30 mcg/0.3 mL dose 05/14/20 21 completed Not Available [facility] 09/14/2022 19:23:47 COVID-19, mRNA, LNP-S, bivalent, PF, 30 mcg/0.3 mL dose 05/27/20 22 completed JAMES Olivarez [facility] 11/23/2022 10:38:03 Influenza, split virus, quadrivalent, PF 07/15/20 22 completed [facility] 11/23/2022 10:38:03 COVID-19, mRNA, LNP-S, PF, ally-sucrose, 30 mcg/0.3 mL 04/23/20 24 completed JAMES Olivarez [facility] 06/19/2024 14:27:46 Influenza, split virus, trivalent, PF 05/17/20 24 completed JAMES Olivarez, [facility] 06/19/2024 14:27:46 Influenza, split virus, quadrivalent, PF 04/06/20 20 completed Araseli lyn, [facility] 04/06/2020 14:19:35 Td (adult), 2 Lf tetanus toxoid, preservative free, adsorbed 04/06/20 20 cancelled patient objection Song Zhang PA-C [address] [facility] [address], [place], [address], [facility] 04/06/2020 14:58:30 Influenza, split virus, quadrivalent, PF 06/30/20 21 completed JAMES Michael, [facility] 06/30/2021 14:58:21 Tdap 06/30/20 21 completed JAMES Michael, [facility] 06/30/2021 14:58:21 Past Encounters Encounter ID Performer Location Encounter Start Date Encounter Closed Date Diagnosis/Indication Diagnosis SNOMED-CT Code Diagnosis ICD10 Code Diagnosis IMO Codes Diagnosis Note [id number] Kulwinder Darling MD Main Office [address] [facility] [address] [place] [address] 06/23/2025 10:51:22 06/23/2025 12:07:01 Adult health examination 998730301 Z00.00 Influenza vaccination declined 231592442 Z28.21 81254249 Mild persi stent asthma 726037259 J45.30 stable - cont meds/inhal ers as dir 07.17 - was at ER recently - seen by pulm - better on breo x 1 wk, pending pft on 07.11.25no need for prn alb latelydepe nding on RAST testing, may consider montelukas t in future Hyperlipidemia 77151786 E78.49 8454540 rec low carb diet to lower trigs, and decrease your red meat & cheese intake to lower your LDL (bad chol) Fatigue 22747057 R53.83 6421876 Abrasion a nd/or friction burn of skin 283081897 T14.8XXA 809682 tip of penis x past week - from copper wire of partner's iud that loosened / changed position- slowly getting better, but not resolved c triple abx - change to mupirocin Panic attack 501939777 F 39.0 no help c prn hydroxyzin e last year, his dad rec prn ativan - reviewed risks/bene fits, pt aware of addictive potential, will only take prn panic attack 3.25 - pt requested refill - rarely uses 12.25 - pt has used prn 1mg lately - just refilled recently - feeling better, but would still like to have just in case Anxiety 43218708 F41.9 increased d/t health issues above - encouraged pt to cont to f/u c therapist, and will check griselda/phq next wk 6.28.23 - increased anxiety lately, moderate on griselda - his dad is a clinical psychologi st - he rec consider zoloft == rec in future if clinically worse (pt declines zoloft today), strongly encouraged pt to call [address] [place] [address] to see a therapist - handout provided, [...] 12.25 - griselda/phq stable - see above [id number] Kulwinder Darling MD Telehealt h [address] [facility] [address] [place] [address] 07/08/2025 12:51:59 07/08/2025 14:48:02 Anxiety 61767901 F41.9 increased d/t health issues above - encouraged pt to cont to f/u c therapist, and will check rgiselda/phq next wk 6.28.23 - increased anxiety lately, moderate on griselda - his dad is a clinical psychologi st - he rec consider zoloft == rec in future if clinically worse (pt declines zoloft today), [facility] handout provided, [...] then increase to 10mg qd Panic attack 381881942 F 39.0 no help c prn hydroxyzin [...] Andres Member ID Guarantor Name 07/08/2025 1 [facility] [id number] 1 Juliuszafar Betzy [id number] Michael Bo Notes Date Note Type Note Provider Name and Address Organization Details Recorded Time 07/08/2025 text/html Anxiety/Depressi onRepo rted by PatientHPIFor quality, patient reportsincreased anxietyandpanic symptoms (better lately - no use of prn benzo in > 1.5 wks). For context, patient reportsmajor life stressors. For severity, patient reportsdenies suicidal ideations. For associated symptoms, patient reportsdenies homicidal ideations. Song Zhang PA-C [address] [address], [place], [address], [facility] 07/08/2025 14:06:44
--- OUTSIDE RECORDS SUMMARY | 2025-07-22 15:14 | XMS_ITS | Data Portability ---
Author Organization [facility], Main Office Address [address] [place] [address] Care Team Providers Care Advertising Operations Coordinator Name Role Phone SONG GRANT Primary Care Provider [phone] JOSE LUIS TAYLOR Referring Provider Assessment Encounter Date Assessment Date Assessment LastModified by Organization Details LastModified Time 09/24/2024 09/24/2024 This service was provided using telemedicine. Patient consented to video & audio visit service was provided at the patient's home Patient was located in the [facility]. Provider was located in the office. No other persons participated in the telemedicine visit except for the patient unless otherwise indicated here. Total time of visit was 10 minutes. [email or web address] Not available 10/24/2024 16:07:41 07/08/2025 07/08/2025 This service was provided using telemedicine (Formerly [facility]). The patient consented and was seen through synchronous audio and video technology. If audio only connection was used, the provider used telephone communication. Patient was located at home in the [facility]. Provider was located in the office. No [...] Go To The Location Of Their Choice, [address] 11:45:12 CMP, serum or plasma 2024 025 ZOLTAN [facility] (Centralized Electronic Ordering - All Locations), Patient Can Go To The Location Of Their Choice, [address] 11:45:12 TSH, ultra-sens itive, serum 2024 [facility]OL[facility]AN [facility] (Centralized Electronic Ordering - All Locations), Patient Can Go To The Location Of Their Choice, [address] 11:56:59 vitamin D, 25-hydroxy , total, serum 2024 [facility], [address], [place], [address], 08:06:58 hepatic function panel, serum 2024 ZOLTAN [facility] (Centralized Electronic Ordering - All Locations), Patient Can Go To The Location Of Their Choice, [address] 08:06:57 Referral dermatolog ist referral 2024 [email or web address] Beverley Jang MD, [address], [place], [address], 12:01:39 Procedures None recorded. Surgeries None recorded. Imaging None recorded. Medication Orders escitalopr am 10 mg tablet 2024 [facility] #0693, [address] [place], [address], 14:02:21 mupirocin 2 % topical ointment 2024 [facility] #0693, [address] [place], [address], 11:56:59 lorazepam 0.5 mg tablet 2024 [email or web address] [facility]/Pharmacy #0693, [address] [place], [address], 13:15:37 lorazepam 1 mg tablet 08/27/ 2025 12/01/2 025 [facility], [address] [facility] [place], [address], 16:30:43 sertraline 100 mg tablet [email or web address]/[facility]armacy #0693, [address] [facility] [place], [address], 10:59:04 lorazepam 0.5 mg tablet [email or web address]/Pharmacy #0693, [address] [facility] [place], [address], 13:15:37 sertraline 50 mg tablet [email or web address]/Pharmacy #0693, [address] [facility] [place], [address], 10:59:08 Patient TargetsNo targets recorded. Patient Instructions Encounter Date Encounter Id Patient Instructions Last Modified By Organization Details Last Modified Time 08/14/2024 [id number] Patient will follow up and keep appointment as scheduled. [email or web address] Not available 08/14/2024 14:48:39 09/24/2024 [id number] encouraged pt to check outstanding labs as directed pmadden Not available 09/24/2024 14:36:21 Medications (OTC , herbal therapies, supplements) reviewed and reconciled with patient and or caregiver, including potential side effects, drug interactions, instructions, and the consequences of not taking medication. Reviewed potential barriers to medication adherence, such as side effects from medication or cost of medication. [email or web address] Not available 09/24/2024 14:36:13 03/19/2025 [id number] Medications (OTC , herbal therapies, supplements) reviewed and reconciled with patient and or caregiver, including potential side effects, drug interactions, instructions, and the consequences of not taking medication. Reviewed potential barriers to medication adherence, such as side effects from medication or cost of medication. [email or web address] Not available 03/19/2025 11:39:00 06/23/2025 [id number] Well Visit, Ages 18 to 65: Care Instructions [email or web address] Not available 06/24/2025 12:15:13 Medications (OTC , herbal therapies, supplements) reviewed and reconciled with patient and or caregiver, including potential side effects, drug interactions, instructions, and the consequences of not taking medication. Reviewed potential barriers to medication adherence, such as side effects from medication or cost of medication. pmadden Not available 06/23/2025 11:45:07 07/08/2025 [id number] Medications (OTC , herbal therapies, supplements) reviewed and reconciled with patient and or caregiver, including potential side effects, drug interactions, instructions, and the consequences of not taking medication. Reviewed potential barriers to medication adherence, such as side effects from medication or cost of medication. pmadden Not available 07/08/2025 14:02:31 Reason for Referral Classifications Officer Cc/Cm Referral for L esion of skin of face Referring Physician: Song Grant, Internal Medicine, Encounter Date: 03/19/2025 Results Created Date Observation Date Name Description Value Unit Range Abnormal Flag Note LastModifiedBy Organization Detail LastModifiedTime 10/01/1910/01/2024 CBC WITH DIFFE RENTI AL/PL ATELE T WBC 9.7 x10e3 /uL 3.4-10 .8 normal Not Available [facility] ([facility]) [address] [place], [address], 10/01/2024 06:07:24 10/01/19 25 10/01/2024 CBC WITH DIFFE RENTI AL/PL ATELE T RBC 5.34 x10e6 /uL 4.14-5 .80 normal Not Available [facility] ([facility]) [address] [place], [address], 10/01/2024 06:07:24 10/01/19 25 10/01/2024 CBC WITH DIFFE RENTI AL/PL ATELE T hemoglobin 15.8 g/dL 13.0-1 7.7 normal Not Available [facility] ([facility]) [address] [place], [address], 10/01/2024 06:07:24 10/01/19 25 10/01/2024 CBC WITH DIFFE RENTI AL/PL ATELE T hematocrit 46.9 % 37.5-5 1.0 normal Not Available [facility] ([facility]) [address] [place], [address], 10/01/2024 06:07:24 10/01/19 25 10/01/2024 CBC WITH DIFFE RENTI AL/PL ATELE T MCV 88 fL 79-97 normal Not Available [facility] ([facility]) [address] [place], [address], 10/01/2024 06:07:24 10/01/19 25 10/01/2024 CBC WITH DIFFE RENTI AL/PL ATELE T MCH 29.6 pg 26.6-3 3.0 normal Not Available [facility] ([facility]) [address] [place], [address], 10/01/2024 06:07:24 10/01/19 25 10/01/2024 CBC WITH DIFFE RENTI AL/PL ATELE T MCHC 33.7 g/dL 31.5-3 5.7 normal Not Available [facility] ([facility]) [address] [place], [address], 10/01/2024 06:07:24 10/01/19 25 10/01/2024 CBC WITH DIFFE RENTI AL/PL ATELE T RDW 12.6 % 11.6-1 5.4 Not Available [facility] ([facility]) [address] [place], [address], 10/01/2024 06:07:24 10/01/19 25 10/01/2024 CBC WITH DIFFE RENTI AL/PL ATELE T platelets 264 x10e3 /uL 150-45 0 normal Not Available [facility] ([facility]) [address] [place], [address], 10/01/2024 06:07:24 10/01/19 25 10/01/2024 CBC WITH DIFFE RENTI AL/PL ATELE T neutrophils 49 % not estab. normal Not Available [facility] ([facility]) [address] [place], [address], 10/01/2024 06:07:24 10/01/19 25 10/01/2024 CBC WITH DIFFE RENTI AL/PL ATELE T lymphs 37 % not estab. normal Not Available [facility] ([facility]) [address] [facility], [place], [address], 10/01/2024 06:07:24 10/01/19 25 10/01/2024 CBC WITH DIFFE RENTI AL/PL ATELE T monocytes 6 % not estab. normal Not Available [facility] ([facility]) [address] [facility], [place], [address], 10/01/2024 06:07:24 10/01/19 25 10/01/2024 CBC WITH DIFFE RENTI AL/PL ATELE T eos 7 % not estab. normal Not Available [facility] ([facility]) [address] [facility], [place], [address], 10/01/2024 06:07:24 10/01/19 25 10/01/2024 CBC WITH DIFFE RENTI AL/PL ATELE T basos 1 % not estab. normal Not Available [facility] ([facility]) [address] [facility], [place], [address], 10/01/2024 06:07:24 10/01/19 25 10/01/2024 CBC WITH DIFFE RENTI AL/PL ATELE T immature cells SENIOR SYSTEMS ARCHITECT Not Available [facility] ([facility]) [address] [place], [address], 10/01/2024 06:07:24 10/01/19 25 10/01/2024 CBC WITH DIFFE RENTI AL/PL ATELE T neutrophils (absolute) 4.8 x10e3 /uL 1.4-7. 0 normal Not Available [facility] ([facility]) [address] [facility], [place], [address], 10/01/2024 06:07:24 10/01/19 25 10/01/2024 CBC WITH DIFFE RENTI AL/PL ATELE T lymphs (absolute) 3.6 x10e3 /uL 0.7-3. 1 above high normal Not Available [facility] ([facility]) [address] [facility], [place], [address], 10/01/2024 06:07:24 10/01/19 25 10/01/2024 CBC WITH DIFFE RENTI AL/PL ATELE T monocytes(ab solute) 0.6 x10e3 /uL 0.1-0. 9 normal Not Available [facility] ([facility]) [address] [facility], [place], [address], 10/01/2024 06:07:24 10/01/19 25 10/01/2024 CBC WITH DIFFE RENTI AL/PL ATELE T eos (absolute) 0.7 x10e3 /uL 0.0-0. 4 above high normal Not Available [facility] ([facility]) [address] [facility], [place], [address], 10/01/2024 06:07:24 10/01/19 25 10/01/2024 CBC WITH DIFFE RENTI AL/PL ATELE T baso (absolute) 0.1 x10e3 /uL 0.0-0. 2 normal Not Available [facility] ([facility]) [address] [place], [address], 10/01/2024 06:07:24 10/01/19 25 10/01/2024 CBC WITH DIFFE RENTI AL/PL ATELE T immature granulocytes 0 % not estab. Not Available [facility] ([facility]) [address] [facility], [place], [address], 10/01/2024 06:07:24 10/01/19 25 10/01/2024 CBC WITH DIFFE RENTI AL/PL ATELE T immature grans (abs) 0.0 x10e3 /uL 0.0-0. 1 Not Available [facility] ([facility]) [address] [facility], [place], [address], 10/01/2024 06:07:24 10/01/19 25 10/01/2024 CBC WITH DIFFE RENTI AL/PL ATELE T NRBC SENIOR SYSTEMS ARCHITECT Not Available [facility] ([facility]) [address] [facility], [place], [address], 10/01/2024 06:07:24 10/01/19 25 10/01/2024 CBC WITH DIFFE RENTI AL/PL ATELE T hematology comments: SENIOR SYSTEMS ARCHITECT Not Available [facility] ([facility]) [address] [facility], [place], [address], 10/01/2024 06:07:24 10/01/19 25 10/01/2024 COMP. METAB OLIC PANEL (14) glucose 72 mg/dL 70-99 normal Not Available [facility] ([facility]) [address] [facility], [place], [address], 10/01/2024 06:07:25 10/01/19 25 10/01/2024 COMP. METAB OLIC PANEL (14) BUN 13 mg/dL 6-20 normal Not Available [facility] ([facility]) [address] [facility], [place], [address], 10/01/2024 06:07:25 10/01/19 25 10/01/2024 COMP. METAB OLIC PANEL (14) creatinine 1.07 mg/dL 0.76-1 .27 normal Not Available [facility] ([facility]) [address] [facility], [place], [address], 10/01/2024 06:07:25 10/01/19 25 10/01/2024 COMP. METAB OLIC PANEL (14) eGFR 92 mL/mi n/1.7 3 >59 normal Not Available [facility] ([facility]) [address] [place], [address], 10/01/2024 06:07:25 10/01/19 25 10/01/2024 COMP. METAB OLIC PANEL (14) BUN/creatini ne ratio 12 9-20 normal Not Available [facility] ([facility]) [address] [facility] [place], [address], 10/01/2024 06:07:25 10/01/19 25 10/01/2024 COMP. METAB OLIC PANEL (14) sodium 137 mmol/ L 134-14 4 normal Not Available [facility] ([facility]) [address] [place], [address], 10/01/2024 06:07:25 10/01/19 25 10/01/2024 COMP. METAB OLIC PANEL (14) potassium 4.1 mmol/ L 3.5-5. 2 normal Not Available [facility] ([facility]) [address] [place], [address], 10/01/2024 06:07:25 10/01/19 25 10/01/2024 COMP. METAB OLIC PANEL (14) chloride 98 mmol/ L 96-106 normal Not Available [facility] ([facility]) [address] [place], [address], 10/01/2024 06:07:25 10/01/19 25 10/01/2024 COMP. METAB OLIC PANEL (14) carbon dioxide, total 23 mmol/ L 20-29 normal Not Available [facility] ([facility]) [address] [place], [address], 10/01/2024 06:07:25 10/01/19 25 10/01/2024 COMP. METAB OLIC PANEL (14) calcium 9.3 mg/dL 8.7-10 .2 normal Not Available [facility] ([facility]) [address] [place], [address], 10/01/2024 06:07:25 10/01/19 25 10/01/2024 COMP. METAB OLIC PANEL (14) protein, total 7.1 g/dL 6.0-8. 5 normal Not Available [facility] ([facility]) [address] [place], [address], 10/01/2024 06:07:25 10/01/19 25 10/01/2024 COMP. METAB OLIC PANEL (14) albumin 4.7 g/dL 4.1-5. 1 normal Not Available [facility] ([facility]) [address] [place], [address], 10/01/2024 06:07:25 10/01/19 25 10/01/2024 COMP. METAB OLIC PANEL (14) globulin, total 2.4 g/dL 1.5-4. 5 Not Available [facility] ([facility]) [address] [place], [address], 10/01/2024 06:07:25 10/01/19 25 10/01/2024 COMP. METAB OLIC PANEL (14) bilirubin, total 0.7 mg/dL 0.0-1. 2 normal Not Available [facility] ([facility]) [address] [place], [address], 10/01/2024 06:07:25 10/01/19 25 10/01/2024 COMP. METAB OLIC PANEL (14) alkaline phosphatase 89 IU/L 44-121 normal Not Available [facility] ([facility]) [address] [place], [address], 10/01/2024 06:07:25 10/01/19 25 10/01/2024 COMP. METAB OLIC PANEL (14) AST (SGOT) 59 IU/L 0-40 above high normal Not Available [facility] ([facility]) [address] [facility] [place], [address], 10/01/2024 06:07:25 10/01/19 25 10/01/2024 COMP. METAB OLIC PANEL (14) ALT (SGPT) 24 IU/L 0-44 normal Not Available [facility] ([facility]) [address] [place], [address], 10/01/2024 06:07:25 10/01/19 25 10/01/2024 LIPID PANEL cholesterol, total 204 mg/dL 100-19 9 above high normal Not Available [facility] ([facility]) [address] [place], [address], 10/01/2024 06:07:25 10/01/19 25 10/01/2024 LIPID PANEL triglyceride s 161 mg/dL 0-149 above high normal Not Available [facility] ([facility]) [address] [place], [address], 10/01/2024 06:07:25 10/01/19 25 10/01/2024 LIPID PANEL HDL cholesterol 45 mg/dL >39 normal Not Available [facility] ([facility]) [address] [place], [address], 10/01/2024 06:07:25 10/01/19 25 10/01/2024 LIPID PANEL VLDL cholesterol laura 29 mg/dL 5-40 Not Available [facility] ([facility]) [address] [place], [address], 10/01/2024 06:07:25 10/01/19 25 10/01/2024 LIPID PANEL LDL chol calc ([facility]) 130 mg/dL 0-99 above high normal Not Available [facility] ([facility]) [address] [place], [address], 10/01/2024 06:07:25 10/01/19 25 10/01/2024 LIPID PANEL LDL calc comment: SENIOR SYSTEMS ARCHITECT Not Available [facility] ([facility]) [address] [place], [address], 10/01/2024 06:07:25 10/01/19 25 10/01/2024 HEMOG LOBIN A1C hemoglobin A1C 5.1 % 4.8-5. 6 normal Predi abete s: 5.7 - 6.4 Diabe maged: >6.4 Glyce sejal contr ol for adult s with diabe maged: <7.0 Not Available [facility] ([facility]) [address] [facility], [place], [address], 10/01/2024 06:07:25 10/01/19 25 10/01/2024 VITAM IN [...] um and D. Stella bueno [place]: [facility] . 2. Jer chi MF, Eddie ey [place], Hannah off-F errar i ROBLERO, et al. Evalu ation , treat ment, and preve ntion of vitam in D defic iency : an Endoc rine Socie ty clini laura pract ice guide line. JCEM. 2010; 96(7) :1911 -30. Not Available [facility] ([facility]) [address] [facility], [place], [address], 10/01/2024 06:07:26 03/28/20 25 03/29/2025 HEPAT IC FUNCT ION PANEL (7) protein, total 7.0 g/dL 6.0-8. 5 normal Not Available [facility] ([facility]) [address] [place], [address], 03/29/2025 08:06:57 03/28/20 25 03/29/2025 HEPAT IC FUNCT ION PANEL (7) albumin 4.5 g/dL 4.1-5. 1 normal Not Available [facility] ([facility]) [address] [place], [address], 03/29/2025 08:06:57 03/28/20 25 03/29/2025 HEPAT IC FUNCT ION PANEL (7) bilirubin, total 0.4 mg/dL 0.0-1. 2 normal Not Available [facility] ([facility]) [address] [place], [address], 03/29/2025 08:06:57 03/28/20 25 03/29/2025 HEPAT IC FUNCT ION PANEL (7) bilirubin, direct 0.17 mg/dL 0.00-0 .40 normal Not Available [facility] ([facility]) [address] [place], [address], 03/29/2025 08:06:57 03/28/2003/29/2025 HEPAT IC FUNCT ION PANEL (7) alkaline phosphatase 76 IU/L 44-121 normal Eff ectiv e Septe mber 2024 Alkal ine Phosp hatas e refer ence inter tori will be laanis ing to: Age Male Femal e 0 [...] 129 48 - 129 Not Available [facility] ([facility]) [address] [place], [address], 03/29/2025 08:06:57 03/28/20 25 03/29/2025 HEPAT IC FUNCT ION PANEL (7) AST (SGOT) 21 IU/L 0-40 normal Not Available [facility] ([facility]) [address] [facility], [place], [address], 03/29/2025 08:06:57 03/28/20 25 03/29/2025 HEPAT IC FUNCT ION PANEL (7) ALT (SGPT) 23 IU/L 0-44 normal Not Available [facility] ([facility]) [address] [place], [address], 03/29/2025 08:06:57 03/28/20 25 03/29/2025 VITAM IN [...] Endoc rine Socie ty [facility] defin e vitam in D insuf ficie ncy as a level betwe en 21 and 29 ng/mL (2). 1. IOM (Inst itute of Medic ine). 2010. Dieta ry refer ence intak es for calci um and D. Stella bueno DC: [facility] . 2. Jer chi MF, Eddie angelo [place], Hannah off-F errsergio i ROBLERO, et al. Evalu ation , treat ment, and preve ntion of vitam in D defic iency : an Endoc rine Socie ty clini laura pract ice guide line. JCEM. 2010; 96(7) :1911 -30. Not Available [facility] ([facility]) [address], [place], [address], 03/29/2025 08:06:57 05/25/2005/25/2025 XR, chest , 2 view No observ ation record ed. [facility] (Medical Records) [address] [place], [address], 06/23/2025 11:19:38 05/26/2005/26/2025 CT, angio gram, chest , w/ contr ast No observ ation record ed. [facility] (Medical Records) [address] [place], [address], 06/23/2025 11:19:38 05/26/20 25 05/26/2025 CT, angio gram, chest , w/ contr ast No observ ation record ed. [facility] (Medical Records) [address] [place], [address], 06/23/2025 11:19:38 Result Notes None recorded. Problems Name Problem SNOMED Code Status Onset Date Resolution Date Notes Provider Name and Address Organization Details Recorded Time Asthma 797327140 Completed 201611/23/2022 Song Grant PA-C [address] [facility] [address], [place], [address], [facility] 3 11:39:45 Attention deficit hyperacti vity disorder, predomina ntly inattenti ve type 24027361 Completed 201911/23/2022 Song Grant PA-C [address], [place], [address], [facility] 3 11:38:48 Chronic urticaria 55668078 Completed 201906/19/2024 Song Grant PA-C [address] [facility] [address], [place], [address], [facility] 4 15:00:02 Mild major depressio n, single episode 43178833 Completed 202111/23/2022 Song Grant PA-C [address], [place], [address], [facility] 3 11:38:51 Situation al panic attack 204269171 Completed 202111/23/2022 Song Grant PA-C [address], [place], [address], [facility] 3 11:38:59 Anxiety 85216767 Completed 202111/23/2022 Song Grant PA-C [address] [facility] [address], [place], [address], [facility] 3 09:59:13 Mild persisten t asthma 737273412 Active 2022 Song Grant PA-C [address], [place], [address], [facility] 3 11:39:37 Allergic conjuncti vitis of bilateral eyes 615405425204 102 Completed 202206/19/2024 Song Grnat PA-C [address] [facility] [address], [place], [address], [facility] 4 15:00:07 Anxiety 31069466 Active 2022 Song Grant PA-C [address], [place], [address], [facility] 3 09:59:13 Panic attack 089659823 Active 2022 Song Grant PA-C [address], [place], [address], [facility] 3 14:58:18 Testicula r naveed iasis 939866462593 108 Active 2023 Angelika Edmond MD [address], [place], [address], [facility] 4 13:51:16 Tinnitus of right ear 397922247951 8 Active 2023 Song Grant PA-C [address] [facility] [address], [place], [address], [facility] 4 15:01:07 Vitamin D deficienc y 92327004 Active 2024 Song Grant PA-C [address] [facility] [address], [facility] [place], [address], [facility] 5 16:08:58 Problem Notes None recorded. Procedures Surgical History Date Name Laterality Status Provider Name and Address Organization Details Recorded Time 05/26/[address] angiography of chest with contrast completed Lisa Carballo [facility] 06/03/2025 13:30:01 07/24/19 00 Appendectomy completed Araseli Fontenot [facility] 04/06/2020 14:04:19 Imaging Results None recorded. Procedure Notes None recorded. Medical Equipment None Reported. Allergies Allergen ID Allergen Name Allergen Category Reaction Reaction Severity Criticality Documentation Date Start Date Code Code System Note Provider Name and Address Organization Details Recorded Time 37419 Ceclor CD medicatio n hives severe Not available 09/13/2016 54766 1 [facility] 12:58:16 99950 Levaquin medicatio n vasculiti s severe Not available 09/13/2016 66138 2 [facility] 7 12:58:16 92821 fluticaso ne / salmetero l medicatio n rash severe Not available 09/13/2016 81297 5 RxNorm no probl ems c using proai r Song Grant PA-C [address] [facility] [address], [place], [address], [facility] 8 14:40:06 04023 Claritin medicatio n other severe Not available 09/13/201600824 6 RxNorm JAMES Riojas MA [facility] 12:58:16 88384 cefaclor medicatio n rash Not available Not available 07/02/20252024 2176 RxNorm Not Available zoltan - External Data Service - prod 14:11:55 63615 levofloxa dot medicatio n anaphylax is Not available Not available 07/02/20252024 90105 RxNorm Not Available [facility]oltan - External Data Service - prod 14:11:55 23365 loratadin e medicatio n anaphylax is Not available Not available 07/02/20252024 96704 RxNorm Not Available zoltan - External Data [...] Updated DateTime 5 181.61 cm 24.6 kg/m2 12003.0 3 g 98 % 86 /min 97.6 [degF] 122/76 mm[Hg] Narcisa [facility]raborty [facility] 5 14:05:59 Date Recorded Body height Body mass index (BMI) Body weight Heart rate Oxygen saturation Body temperature Systolic And Diastolic Provider Name and Address Organization Details Last Updated DateTime 5 181.61 cm 22.6 kg/m2 23976.1 5 g 57 /min 98 % 97.9 [degF] 116/74 mm[Hg] Sierra Yates MA [facility] [place] 5 10:48:08 Date Recorded Body height Body mass index (BMI) Body weight Heart rate Oxygen saturation Body temperature Systolic And Diastolic Provider Name and Address Organization Details Last Updated DateTime 5 181.61 cm 22.6 kg/m2 58816.1 5 g 65 /min 99 % 98.7 [degF] 130/83 mm[Hg] [facility] 10:58:04 Date Recorded Body height Provider Name an d Address Organization Details Last Updated DateTime 07/08/2025 181.61 cm Mitali Ocampo MA [facility] 07/08/2025 13:13:54 Social History Question Answer Notes LastModified by Organizat ion Details LastModified Time Tobacco Smoking Status [facility]2016 12:58:17 Do You Have An Advance Directive? Yes HCP [email or web address] Information not available 01/13/2022 Is Blood Transfusion Acceptable In An Emergency? Yes Information not available 09/13/2016 What Is Your Level Of Caffeine Consumption? Moderate [email or web address] Information not available 04/06/2020 How Much Tobacco Do You Chew? None [email or web address] Information not available 04/06/2020 In The 14 Days Before Symptom Onset, Have You Had Close Contact With A Laboratory-confi rmed COVID-19 While That Case Was Ill? No [email or web address] Information not available 01/13/2022 In The 14 Days Before Symptom Onset, Have You Had Close Contact With A Person Who Is Under Investigation For COVID-19 While That Person Was Ill? No [email or web address] Information not available 01/13/2022 Have You Been To An Area Known To Be High Risk For COVID-19? No [email or web address] Information not available 01/13/2022 What Type Of [...] How Many Children Do You Have? 0 [email or web address] Information not available 12/24/2021 Do You Use Protection During Sex? No [email or web address] Information not available 04/06/2020 Do You Use Your Seat Belt Or Car Seat Routinely? Yes [email or web address] Information not available 12/24/2021 Seat Belts Used Routinely Yes [email or web address] Information not available 01/13/2022 Are You Sexually Active? Yes Information not available 09/13/2016 Smoke Alarm In Home Yes [email or web address] Information not available 01/13/2022 Do You Have Smoke And Carbon Monoxide Detectors In Your Home? Yes [email or web address] Information not available 12/24/2021 At What Age [...] independently without assistance or assistive devices? YESWOREST [email or web address] Information not available 01/13/2022 Are you able to care for yourself independently? Yes Information not available 09/13/2016 What is your occupation? Other [email or web address] Information not available 12/27/2024 Do you or have you ever used e-cigarettes or vape? Never used electronic cigarettes [email or web address] Information not available 01/13/2022 What is your exercise level? None Information not available 06/19/2024 Mental Status None recorded. Family History Relationship Description Onset Age of this Age Resolved Age Notes LastModified by Organization Details LastModified Time Mother Asthma [email or web address] Not available 09/13/2016 12:58:16 Mother Anxiety disorder Not available 12/24 14:38:18 Notes:no fh CRC, [...] mL dose 10/16/19 21 completed [facility]14[facility] 19:23:47 COVID-19, mRNA, LNP-S, PF, 30 mcg/0.3 mL dose 11/07/19 21 completed Not Available [facility] 09/14/2022 19:23:47 COVID-19, mRNA, LNP-S, PF, 30 mcg/0.3 mL dose 05/14/20 21 completed Not Available [facility] 09/14/2022 19:23:47 COVID-19, mRNA, LNP-S, bivalent, PF, 30 mcg/0.3 mL dose 05/27/20 22 completed JAMES Olivarez [facility] 11/23/2022 10:38:03 Influenza, split virus, quadrivalent, PF 07/15/20 22 completed JAMES Olivarez [facility] 11/23/2022 10:38:03 COVID-19, mRNA, LNP-S, PF, ally-sucrose, 30 mcg/0.3 mL 04/23/20 24 completed JAMES Olivarez, [facility] 06/19/2024 14:27:46 Influenza, split virus, trivalent, PF 05/17/20 24 completed JAMES Olivarez, [facility] 06/19/2024 14:27:46 Influenza, split virus, quadrivalent, PF 04/06/20 20 completed Araseli lyn, [facility] 04/06/2020 14:19:35 Td (adult), 2 Lf tetanus toxoid, preservative free, adsorbed 04/06/20 20 cancelled patient objection Song Grant PA-C [address] [facility] [address], [place], [address], [facility] 04/06/2020 14:58:30 Influenza, split virus, quadrivalent, PF 06/30/20 21 completed JAMES Michael, [facility] 06/30/2021 14:58:21 Tdap 06/30/20 21 completed JAMES Michael, [facility] 06/30/2021 14:58:21 Past Encounters Encounter ID Performer Location Encounter Start Date Encounter Closed Date Diagnosis/Indication Diagnosis SNOMED-CT Code Diagnosis ICD10 Code Diagnosis IMO Codes Diagnosis Note [id number] Song Grant PA-C Main Office [address] [facility] [address] [place] [address] 09/13/2016 12:37:14 09/13/2016 14:09:06 Asthma 574939183 J45.20 pt requests refill of epipen - [facility] has never used it, but wants it on-hand just in case Adult heal th examination 463278996 Z00.00 Body mass index 25-29 - overweight 617282851 Z68.29 Fatigue 11512759 R53.83 [id number] Song Grant PA-C Main Office [address] 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 [address] [place] [address] 08/14/2018 13:22:23 08/14/2018 13:52:49 Acute sinusitis 03981803 J01.90 tx with doxycyclin e, pt with levaquin and augmentin allergy, hydrate adn nasal saline Cough 39599364 R05 from sinusitis and asthma flare tx with proair as needed Acute asthma 846957612 J 45.901 hold off on steroid inhaler due to advair allergy, on singulair for a month [id number] Kulwinder Darling MD Main Office [address] [facility] [address] [place] [address] 11/26/2018 13:28:21 11/26/2018 14:28:19 Acute pharyngitis 064328504 J02.9 neg rapid strep Cough 44837099 R05 likely d/t pnd from sinusitis - see below Acute sinusitis 30005916 J01.90 rec probiotics while on abx will rx c pred pulse d/t second sinusitis in past 4 months Mild inter mittent asthma 058174918 J45.20 stable, cont prn alb [id number] Kulwinder Darling MD Main Office [address] [facility] [address] [place] [address] 08/19/2019 09:43:56 08/19/2019 10:37:27 Fever 644924576 R50.9 Influenza B virus present 203038347 J10.1 rest, hydration, antipyreti c every 4-6 hours as needed. Call if not improving in the next few days, sooner if worsening. Would begin tamiflu today. Prevention of spread discussed. Acute sinusitis 64133891 J01.90 steam, flonase, sinus nasal rinses, keep hydrated, start antibiotic (pt double checked not allergic to amox) Call if not improving within a few days to a week, sooner if worsening. [id number] Darryl Mills MD Main Office [address] [address] 02/11/2020 09:51:15 02/11/2020 10:25:50 Asthma 710201130 J45.909 re-start singulair daily Acute asthma 367960846 J 45.901 will refill proair and rx [...] not need at home neb. Allergic urticaria 26796 009 L50.0 start zyrtec daily [id number] Kulwinder Darling MD Main Office [address] [address] 04/06/2020 13:57:17 04/06/2020 15:10:51 Adult health examination 976813707 Z00.00 Needs infl uenza immunization 633805186 Z23 Asthma 798971820 J45.20 using proair fairly often - few times/day - will refill and give trial of flovent ac sees hygiene assistant below Chronic urticaria 958227 05 L50.8 see above - will get allergy re-eval Major depr essive disorder 260184205 F32.0 no h/o ssri use, never seen by counsellor - mild - will re-eval soon Attention deficit hyperactivity disorder, 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 used to take concerta back in college - [facility] - no med x 2-3 yrs, feels similarly recently - re-examine in 1-2 months Mixed hyperlipidemia 267 569926 E78.2 Vitamin D deficiency 347 91842 E55.9 Requires a tetanus booster 636342784 Z23 [id number] [facility] [address] [address] [place] [address] 05/28/2020 14:20:16 05/28/2020 15:17:58 Major depressive disorder 605281872 F32.0 better lately - no h/o ssri use, never seen by counsellor Asthma 179754005 J45.20 sig better flovent - cont as dir Chronic urticaria 963043 05 L50.8 see above - pending allergy re-eval [id number] [facility] [address] [address] [place] [address] 06/29/2021 08:18:03 06/29/2021 12:06:53 Asthma 742461624 J45.20 stable - cont meds/inhal ers as dir Major depr essive disorder 685939831 F32.0 better lately - no h/o ssri use, never seen by counsellor [id number] Angelika Edmond MD Main Office [address] [address] [place] [address] 06/30/2021 09:19:02 06/30/2021 10:14:27 Needs influenza immunization 565592990 Z23 Administra tion of viral vaccine 07356025 Z23 [id number] Kulwinder Darling MD Main Office [facility] [address] [place] [address] 08/12/2021 09:55:27 08/12/2021 10:55:13 Adult health examination 266976271 Z00.00 Insomnia 864080309 G47.0 0 rec better sleep hygiene, johan stop looking at cell phone ac hs - consider melatonin p dinner if no help Asthma 958519917 J45.20 stable - cont meds/inhal ers as dir Major depr essive disorder 989086440 F32.0 better lately - no h/o ssri use, never seen by counsellor [id number] Angelika Edmond MD Main Office [facility] [address] [place] [address] 12/24/2021 14:20:43 12/24/2021 15:46:07 Lightheadedness 661821403 R42 check labs to rule out anemia, diabetes , he has been anemic before Paresthesia 35621884 R20 .2 Loose stool 885627917 R1 9.5 increase fiber, try to eat more regular healthy meals, keep track of offending foods Irritable bowel syndrome with diarrhea 337024056 K58.0 Try dicyclomin e, side effects reviewed, can cause dry mouth when taken with hydroxyzin e, avoid both together. Watch for food triggers, diet history and short term followup with his pcp Song Grant Panic attack 736633481 F 41.0 Discussed need for regular mental health counseling and possible med evaluation . Will give small supply of med to use prn and panic attacks are more frequent. Will check with EAP program. Consider SSRI if labs ok, can discuss with Song at [place] visit, call sooner prn. [id number] Kulwinder Darling MD Main Office [address] [place] [address] 01/13/2022 09:13:08 01/13/2022 09:53:53 Situational panic attack 106590830 F41.0 improved with use of hydroxyzin e. has since stopped taking and is managing with mindfulnes s. but see anxiety below - advised to schedule with therapist Paresthesia 83350768 R20 .2 resolved, negative work up. Loose stool 574342381 R1 9.5 Resolved. episodes occurred along side panic attacks. Anxiety 70136355 F41.9 moderate on griselda, better than prior - but still encouraged to f/u c therapist [id number] Kulwinder Darling MD Main Office [address] [place] [address] 11/23/2022 10:15:09 11/23/2022 11:36:29 Adult health examination 355830753 Z00.00 Allergic conjunctivitis of bilateral eyes 9815429373 87598 H10.13 rec saline prn - johan p being outside, cutting lawn, etc -- hopefully will need visine less freq Impaired f asting glycemia 634833680 R73.01 Hyperlipidemia 94469484 E78.5 Mild persi stent asthma 317575999 J45.30 stable - cont meds/inhal ers as dir [id number] Kulwinder Darling MD Main Office [address] [facility] [address] [place] [address] 01/12/2023 14:48:44 01/12/2023 16:18:10 Exposure to viral disease 6781782663 97428 Z03.818 offered reassuranc e c negative covid test Asthmatic bronchitis 405 056526 J45.909 lungs still sound 'tight' --- given his h/o hospitaliz ation remotely and recent use of pred pulse c 2 abx, will rx with longer course of pred taper to hopefully keep him out of the hospital, and get pulm eval meanwhile, cont inhalers as dir, and rtc 1 wk Pneumonia 510139883 J18. 9 better p 2 abx - pt states no longer feels 'ill' Cough 89149839 R05.9 rec prn tessalon Diarrhea 56465277 R19.7 persists - ? etiology --- rec brat diet, cont probiotic, check stool studies and recheck bmp to r/o dehydratio n Anxiety 83753351 F41.9 increased d/t health issues above - encouraged pt to cont to f/u c therapist, and will check griselda/phq next wk [id number] Kulwinder Darling MD Main Office [address] [facility] [address] [place] [address] 01/19/2023 13:57:32 01/19/2023 14:54:04 Asthmatic bronchitis 496637545 J45.909 lungs still sound 'tight' --- given his h/o hospitaliz ation remotely and recent use of pred pulse c 2 abx, will rx with longer course of pred taper to hopefully keep him out of the hospital, and get pulm eval meanwhile, cont inhalers as dir, and rtc 1 wk 6.23 - resolved Asthma 409916163 J45.20 stable - cont meds/inhal ers as dir, pt requests refill of flovent pending see pulm 8 Diarrhea 78210259 R19.7 persists - ? etiology --- rec brat diet, cont probiotic, check stool studies and recheck bmp to r/o dehydratio n 6..23 - resolved, pt deferred stool studies Anxiety 02193467 F41.9 increased d/t health issues above - [...] - handout provided, see below Panic attack 929462300 F 41.0 no help c prn hydroxyzin e last year, his dad rec prn ativan - reviewed risks/bene fits, pt aware of addictive potential, will only take prn panic attack [id number] Angelika Edmond MD Main Office [address] [address] 04/20/2024 08:33:25 04/20/2024 09:17:11 Inguinal pain 185530201 R10.2 -Will get US of testes and groin to r/o epididimit is/orchiti s/hydrocel e/varicoce le and eval for possible inguinal hernia.-Lo w suspicion for groin strain.-Wi ll get STI panel and urine test.-Ibup rofen for pain.-Supp ortive underwear advised. Venereal d isease screening 737922206 Z20.2 Z11.3 Z72.89 Z72.51 [id number] Kulwinder Darling MD Main Office [address] [address] 06/19/2024 13:53:28 06/19/2024 14:53:58 Adult health examination 093563779 Z00.00 Anxiety 92731412 F41.9 increased d/t health issues above - encouraged pt to cont to f/u c therapist, and will check griselda/phq next wk 6.28.23 - increased anxiety lately, moderate on griselda - his dad is a clinical psychologi st - he rec consider zoloft == rec in future if clinically worse (pt declines zoloft today), [facility] - handout provided, see below 11.24 - stable/no panic attack lately, infrequent use of prn benzo Mild persi stent asthma 347577327 J45.30 stable - cont meds/inhal ers as dir Hyperlipidemia 88386323 E78.5 Tinnitus of right ear 48 17207118 108 H93.11 int - rec ambient noise - soft music in background Testicular microlithiasis 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 [address] [place] [address] 08/14/2024 13:57:18 08/14/2024 14:45:28 Anxiety 21067642 F41.9 increased d/t health issues above - encouraged pt to cont to f/u c therapist, and will check griselda/phq next wk 6.28.23 - increased anxiety lately, moderate on griselda - his dad is a clinical psychologi st - he rec consider zoloft == rec in future if clinically worse (pt declines zoloft today), strongly encouraged pt to call [address] [place] [address] to see a therapist - handout provided, see below 11.24 - stable/no panic attack lately, infrequent use of prn benzo 1.25 - cont f/u c therapist q o week, cont f/u c marriage counsellor wklyinfreq uent use of prn benzosee below Moderate m ajor depression, single episode 56773987 F32.1 see above - his father has tolerated zoloft, will give trial of this - start c 1/2 tab first wk then advance to full tab qd as dir [id number] Kulwinder Darling MD Tele[facility] [address] [facility] [address] [place] [address] 09/24/2024 13:02:25 09/24/2024 14:45:43 Anxiety 66644177 F41.9 increased d/t health issues above - [...] rec increase to 50mg qd Panic attack 253868690 F 41.0 no help c prn hydroxyzin e last year, his dad rec prn ativan - reviewed risks/bene fits, pt aware of addictive potential, will only take prn panic attack 3.25 - pt requested refill - rarely uses [id number] Kulwinder Darling MD Main Office [address] [facility] [address] [place] [address] 03/19/2025 10:17:46 03/19/2025 12:01:39 Anxiety 72245109 F41.9 increased d/t health issues above - encouraged pt to cont to f/u c therapist, and will check griselda/phq next wk 6.28.23 - increased anxiety lately, moderate on griselda - his dad is a clinical psychologi st - he rec consider zoloft == rec in future if clinically worse (pt declines zoloft today), strongly encouraged pt to call [address] [place] [address] to see a therapist - handout provided, [...] his therapist Lesion of skin of face 6808985031 06 L98.9 will get derm eval Vitamin D deficiency 347 37992 E55.9 Liver enzy mes level above reference range 465042802 R74.8 857682 Acute viral disease 4096 09407 B34.9 23941874 pt's has covid - pt developed runny nose & sneezing - ? viral vs allergy sxs ---pt tested yesterday at home - negative for covidlung exam normal todaycont supportive careRTC if worse / no better [id number] Kulwinder Darling MD Main Office [address] [facility] [address] [place] [address] 06/23/2025 10:51:22 06/23/2025 12:07:01 Adult health examination 338905816 Z00.00 Influenza vaccination declined 668870564 Z28.21 90113728 Mild persi stent asthma 332387284 J45.30 stable - cont meds/inhal ers as dir 12.25 - was at ER recently - seen by pulm - better on breo x 1 wk, pending pft on 07.11.25no need for prn alb latelydepe nding on RAST testing, may consider montelukas t in future Hyperlipidemia 26563812 E78.49 1035129 rec low carb diet to lower trigs, and decrease your red meat & cheese intake to lower your LDL (bad chol) Fatigue 27113960 R53.83 8516707 Abrasion a nd/or friction burn of skin 478942241 T14.8XXA 483661 tip of penis x past week - from copper wire of partner's iud that loosened / changed position- slowly getting better, but not resolved c triple abx - change to mupirocin Panic attack 636670957 F 39.0 no help c prn hydroxyzin e last year, his dad rec prn ativan - reviewed risks/bene fits, pt aware of addictive potential, will only take prn panic attack 3.25 - pt requested refill - rarely uses 12.25 - pt has used prn 1mg lately - just refilled recently - feeling better, but would still like to have just in case Anxiety 70460908 F41.9 increased d/t health issues above - [...] 12.25 - griselda/phq stable - see above [id number] Kulwinder Darling MD Telehealt [facility] [address] [facility] [address] [place] [address] 07/08/2025 12:51:59 07/08/2025 14:48:02 Anxiety 60928654 F41.9 increased d/t health issues above - [...] then increase to 10mg qd Panic attack 549796413 F 41.0 no help c prn hydroxyzin [...] Member ID Guarantor Name 08/19/2019 1 [place] [facility] Michael Bo [id number] Michael Bo 07/18/2018 1 [facility] [id number] Michael Bo [id number] Michael Bo 09/13/2016 1 [facility] [id number] Michael Villalta Betzy [id number] Michael Bo 07/08/2025 1 [facility] [id number] Terry Bo [id number] Michael Bo Notes Date Note Type Note [...] phq > griselda from last ov Song Gratn PA-C [address], [address], [facility] [place] [place] 08/14/2024 14:49:02 09/24/2024 text/html Anxiety/Depressi onRepo [...] griselda/phq, but doesn't feel 'good' Tatyana lyn, [facility] [place] 10/24/2024 16:07:47 03/19/2025 text/html 1. Patient reports has a lump/bump under the chin and is requesting dermatology referral in [place] Jang.2.Lorazepam- Patient feels the .05mg is [...] this may be skin cancer. I contacted centerpuncher Beverley Jang MD in [place] for an appointment but was told I needed a referral from my primary in order to be given an urgent appointment as they have no appointments available now for new patients. Please send referral to Dr. Jang. Thank you. Song Grant PA-C [address], [address], [facility] [place] [place] 03/24/2025 13:17:03 06/23/2025 text/html Generic HPI TemplateReported by Patient here for annual pe. Tatyana lyn, [facility] [place] 06/24/2025 13:45:19 07/08/2025 text/html Anxiety/Depressi onRepo rted by PatientHPIFor quality, patient reportsincreased anxietyandpanic symptoms (better lately - no use of prn benzo in > 1.5 wks). For context, patient reportsmajor life stressors. For severity, patient reportsdenies suicidal ideations. For associated symptoms, patient reportsdenies homicidal ideations. Song Grant PA-C [address] [address], [place], [address], [facility] 07/08/2025 14:06:44
[2025-07-23 21:59] LABS: Class Alternaria alternata 0; Class Aspergillus fumigatus 0; Class Bermuda Grass 0; Class Birch 3; Class Cat Dander 3; Class Cladosporium herbarum 0; Class Cockroach 1; Class Common Ragweed 0/1; Class Cottonwood 0; Class Derm. pterony 4; Class Dermatophagoides farinae 4; Class Dog Dander 2; Class Elm 0; Class Maple Box Elder 0; Class Mountain Cedar 0; Class Mouse Urine Protein 0; Class Mugwort 0; Class Oak 1; Class Penicillium crysogenum 0; Class Rough Pigweed 0; Class Sheep Sorrel 0; Class Sycamore 0; Class Timothy Grass 0; Class Walnut Tree 0; Class White Ash 0; Class White Mulberry 0; D002 - IgE D farinae 23.80 kU/L; E001 - IgE Cat Dander 5.13 kU/L; E005 - IgE Dog Dander 1.19 kU/L; G006 - IgE Timothy Grass <0.10 kU/L; I006-IgE Cockroach, German 0.54 kU/L; M002 - IgE Cladosporium herbar <0.10 kU/L; M003 - IgE Aspergillus fumigat <0.10 kU/L; M006 - IgE Alternaria alternat <0.10 kU/L; T001 IgE Maple/Box Elder <0.10 kU/L; T006 - IgE Cedar, Mountain <0.10 kU/L; T007 - IgE Oak, White 0.61 kU/L; T008 IgE Elm, American <0.10 kU/L; T010 - IgE Walnut <0.10 kU/L; T011 - IgE Maple Leaf Sycamore <0.10 kU/L; T014 - IgE Cottonwood <0.10 kU/L; T015 - IgE Ash, White <0.10 kU/L; T070 - IgE White Mulberry <0.10 kU/L; W001 - IgE Ragweed, Short 0.26 kU/L; W006 - IgE Mugwort <0.10 kU/L; W014 IgE Pigweed, Common <0.10 kU/L; W018 IgE Sheep Sorrel <0.10 kU/L
== END 2025-07-22 10:45 | disposition home or self-care (01) ==
LOC: HO.LAB 10:44
PROVIDERS: PCP Physician Assistant Medical; Visit Provider Internal Medicine Pulmonary Disease
DX: J45.909 Unspecified asthma, uncomplicated (principal); Z87.891 Personal history of nicotine dependence; Z91.09 Other allergy status, other than to drugs and biological substances
CPT/HCPCS: 36415; 82785; 85025; 86003